=== PATIENT | female | born 1945 | race Caucasian/White ===

== ENCOUNTER 2021-01-18 17:22 | Emergency (ER) | payer MEDICARE, SELFPAY ==
--- NOTE | ~2021-01-18 | CT_ITS ---
EXAMINATION: CT ANGIOGRAM OF THE CHEST WITH AND WITHOUT CONTRAST (CT PULMONARY ANGIOGRAM FOR PE) CLINICAL INFORMATION: Reason for Exam SOB, chest pain, COVID+ COMPARISON: None TECHNIQUE: Prior to contrast administration, noncontrast localization images were obtained. Subsequently, multidetector volumetric imaging was performed from the thoracic inlet to below the diaphragms following the administration of 80 mL Omnipaque 350 intravenous contrast. No contrast reaction reported Sagittal, coronal, and MIP oblique sagittal reformatted images were obtained on the CT workstation, uploaded to PACS, and reviewed. This CT examination was performed using dose optimization techniques as appropriate, variously including the following: *Automated exposure control *Adjustment of mA and/or kV according to patient size (this includes techniques or standardized protocols for targeted exams where dose is matched to indication/reason for exam; i.e. extremities or head) *Use of iterative reconstruction technique Total exam dose-length product 241 mGy-cm FINDINGS: QUALITY OF STUDY/CONTRAST BOLUS: Satisfactory. PULMONARY ARTERIES: No central or segmental pulmonary emboli. THORACIC AORTA: No aneurysm or dissection. LUNG: Diffuse predominantly peripheral patchy groundglass opacities and areas of mild consolidation throughout all lobes consistent with an atypical multifocal pneumonia such as Covid 19. PLEURA: No pleural effusion or pneumothorax. MEDIASTINUM: Normal heart size. No pericardial effusion. No hilar or mediastinal lymphadenopathy. No evidence of septal bowing or right heart strain. CHEST WALL/AXILLA: No axillary or internal mammary lymphadenopathy. OSSEOUS STRUCTURES: No acute or suspicious osseous abnormality. UPPER ABDOMEN: Unremarkable. No reflux of contrast into the hepatic veins to suggest elevated right heart pressures. CT/CT angio chest PE protocol IMPRESSION: No central or segmental pulmonary embolus. Diffuse patchy parenchymal and groundglass opacities compatible with atypical multifocal pneumonia. VTE: negative
--- NOTE | ~2021-01-18 | XR_ITS ---
EXAMINATION: XR CHEST CLINICAL INFORMATION: Fatigue COMPARISON: None TECHNIQUE: Frontal view of the chest was obtained. FINDINGS: Ill-defined patchy parenchymal opacities in the right lower lobe peripherally and possible left lung base. This suggests atypical, multifocal pneumonia. No definite effusion or edema. Normal cardiomediastinal silhouette. XR/XR chest 1V IMPRESSION: Possible atypical multifocal pneumonia. Recommend short-term follow-up.
[2021-01-18 17:40] VITALS: BP 120/47; PULSE 93; PULSE 94; RESP 16; TEMP 37.6; O2SAT 94; BMI 25.6
--- NOTE | 2021-01-18 17:55 | ED_ITS ---
HPI - General Adult General Chief complaint: General Medical Stated complaint: covid +, nausea Time Seen by Provider: 01/18/21 17:46 Source: patient and EMS Mode of arrival: EMS Limitations: no limitations History of Present Illness HPI narrative: 75-year-old female with history of hyperlipidemia, arthritis, anxiety with reports of nausea, fatigue, fever, chills in the setting of recently being diagnosed with COVID-19 one week ago. MD complaint: COVID symptoms Onset (ago): week(s) (1) Location: chest and abdomen Radiation: non-radiation Severity: moderate Quality: aching Pain Consistency: intermittent Relieving factors: none Exacerbating factors: eating Associated symptoms: cough, fever/chills, headaches, loss of appetite, malaise, nausea/vomiting, shortness of breath and weakness Treatments prior to arrival: none Related Data Home Medications Medication Instructions Recorded Confirmed alendronate 70 mg tablet 1 tab PO QWEEK 01/18/21 01/18/21 ezetimibe 10 mg tablet 1 tab PO DAILY 01/18/21 01/18/21 lansoprazole 30 mg capsule,delayed 1 cap PO DAILY 01/18/21 01/18/21 release lorazepam 1 mg tablet 1 tab PO BID 01/18/21 01/18/21 losartan 50 mg tablet 1 tab PO DAILY 01/18/21 01/18/21 Previous Rx's Medication Instructions Recorded azithromycin 250 mg tablet See Rx Instructions .ROUTE 01/18/21 (Zithromax Z-Sincere) .COMPLEX #6 tab prednisone 20 mg tablet 40 mg PO DAILY #10 tab 01/18/21 Allergies Allergy/AdvReac Type Severity Reaction Status Date / Time Horse/Equine Containing Allergy Severe REDNESS Verified 01/18/21 19:54 Products AND [HORSE/EQUINE CONTAINING SWELLING PRODUCTS] aspirin [ASPIRIN] Allergy Unknown RASH Verified 01/18/21 19:54 ibuprofen [From MOTRIN] Allergy Unknown RASH Verified 01/18/21 19:54 latex [LATEX] Allergy Unknown RASH Verified 01/18/21 19:54 latex Allergy Unknown Unknown Uncoded 01/18/21 19:54 Motrin Allergy Unknown Unknown Uncoded 01/18/21 19:54 statins Allergy Unknown Unknown Uncoded 01/18/21 19:54 Review of Systems Review of Systems: Constitutional: + Fever, + Chills ENT/Mouth: No sore throat, No Rhinorrhea, No Swallowing Difficulty Eyes: No Eye Pain, No Swelling, No Redness Cardiovascular: No Chest Pain, + SOB, No Orthopnea, No Edema Respiratory:+ Cough, No Sputum, No Wheezing, + dyspnea Gastrointestinal: No Nausea, No Vomiting, No Diarrhea, No abdominal Pain Genitourinary: No Dysuria, No Urinary Frequency, No Hematuria Musculoskeletal: + joint pain, + Myalgias Skin: No Skin Lesions, No rash Neuro: + Weakness, No Numbness, No Dizziness, No Headache Psych: + Anxiety/Panic, No Depression Heme/Lymph: No Bruising, No Lymphadenopathy Endocrine: No Polyuria, No Polydipsia [facility] Social History Social History Alcohol intake: never Patient Tobacco Use Status: Never used Tobacco Use of substances other than those prescribed or required for medical reasons: No Advance Directives: No Advance Directives Information Provided: No Physical Exam Vital Signs: Vital Signs: Last Vital Signs Temp 99.6 F 01/18/21 19:49 Pulse 94 01/18/21 19:49 Resp 16 01/18/21 19:49 BP 120/47 L 01/18/21 19:49 Pulse Ox 94 01/18/21 19:49 Body Mass Index 25.6 Appearance: Alert. Oriented X3. No acute distress. Eyes: Pupils equal, round and reactive to light. ENT: Pharynx normal. Neck: Normal inspection. Neck supple. CVS: Normal heart rate and rhythm. Pulses normal. Respiratory: No respiratory distress. Breath sounds slightly coarse throughtout. speaking in complete sentences. Abdomen: Soft with mild epigastric tenderness. No rebound or guarding. +BS x4 Skin: Skin warm and dry. Normal skin color. Normal skin turgor. No rashes. Extremities: No lower extremity edema. No calf tenderness. Neuro: Oriented X 3. No motor deficit. No sensory deficit. Course Course Course Narrative: 75-year-old female presenting from home with diagnosis of COVID 1 week ago having ongoing lethargy, weakness, chills, nausea and mild shortness of breath. She has not been able to tolerate much p.o. in the last few days. He is not vomiting or having diarrhea she has has no appetite. She has mild shortness of breath with exertion but none at rest. Mild dry cough. She is on vaccinated for COVID because she was afraid of the shot. She arrives with low-grade fever 99.6 oxygen saturation 94% on room air, in no respiratory distress. She is hemodynamically stable Will get chest x-ray, labs, and m edicate with IV fluids Zofran. She appears clinically dry. Reevaluation(s) Reevaluation #1: Chest x-ray showing possible multifocal. Will get CTA to rule out PE and for further evaluation of the lung parenchyma. She remains with normal oxygen saturations. Will get respiratory therapist to get a ambulatory pulse oximetry on her. Her labs are showing hyponatremia with a sodium of 128. This is likely hypovolemic in the setting of poor p.o. intake. Will repeat after gentle hydration. Reevaluation #2: CT is negative for PE, showing multifocal pneumonia consistent with COVID-19. Her oxygen saturations were 96% with ambulation in the room with respiratory therapy. She is in no distress. On repeat sodium her sodium did trend down slightly to 126. She remains asymptomatic. Mentating normally has some mild nausea but no vomiting. She denies a history of hyponatremia. She is not on any psychiatric medications. Case was discussed with Dr. Valle. At this time there is no indication for admission. Her respiratory status is stable. She can follow-up with her primary care doctor on Wednesday to arrange for repeat sodium levels done this week. Patient was encouraged to get up home pulse oximeter to keep an eye on her SpO2 at home. Given warning signs for se corie hyponatremia that should prompt urgent re-evaluation the emergency room. She expressed understanding and is stable for discharge home. to pick her up. Medical Decision Making Lab Data Result diagrams: 01/18/21 18:34 01/18/21 21:28 Labs: Lab Results 01/18/21 01/18/21 01/18/21 Range/Units 18:34 18:34 18:34 WBC 3.6 L (4.8-10.8) X10*3/uL RBC 4.06 L (4.20-5.50) X10*6/uL Hgb 12.2 (12.0-16.0) g/dl Hct 35.4 L (37.0-47.0) % MCV 87.2 (80.0-98.0) fL MCH 30.0 (27.0-33.0) pg MCHC 34.5 (31.0-35.0) g/dl RDW 13.8 (11.0-16.0) % Plt Count 196 (160-400) X10*3/uL MPV 10.3 (9.4-12.3) fL Immature Gran % (Auto) 0.3 (0.0-0.4) % Neut % (Auto) 74.8 H (45-73) % Lymph % (Auto) 17.9 L (20-40) % [place] % (Auto) 7.0 (2-11) % Eos % (Auto) 0.0 (0-4) % Baso % (Auto) 0.0 (0-2) % Lymph # (Auto) 0.6 L (1.2-4.9) X10*3/uL [place] # (Auto) 0.3 (0.1-1.2) X10*3/uL Eos # (Auto) 0.0 (0.0-0.4) X10*3/uL Baso # (Auto) 0.0 (0.0-0.2) X10*3/uL Abs Immat Gran (auto) 0.01 (0.00-0.03) X10*3/uL Absolute Neuts (auto) 2.7 (2.0-8.3) x10*3/uL Absolute Nucleated RBC 0.000 (0.0-0.012) X10*3/uL Nucleated RBC % (auto) 0.0 (0.0-0.2) /100WBC D-Dimer NG/ML Sodium 128 L (135-145) mmol/L Potassium 4.5 (3.3-5.1) mmol/L Chloride 96 (96-108) mmol/L Carbon Dioxide 24 (22-29) mmol/L Anion Gap 13 (12-20) BUN 14 (9-16) mg/dL Creatinine 0.83 (0.5-1.4) mg/dL Estim Creat Clear Calc 45.2 Estimated GFR > 60 Random Glucose 116 H (60-115) mg/dL Osmolality 263 L (281-305) mosm/kg Calcium 7.5 L (8.4-10.2) mg/dL Magnesium 2.1 (1.6-2.6) mg/dL Total Bilirubin 0.4 (0.0-1.0) mg/dL Direct Bilirubin 0.2 (0.0-0.5) mg/dL AST 30 (5-31) U/L ALT 15 (0-31) U/L Alkaline Phosphatase 58 (39-117) U/L C-Reactive Protein 8.09 H (< or = 0.50) mg/dL Total Protein 5.9 L (6.5-8.0) g/dL Albumin 4.0 (3.5-5.0) g/dL 01/18/21 01/18/21 Range/Units 21:28 21:28 WBC (4.8-10.8) X10*3/uL RBC (4.20-5.50) X10*6/uL Hgb (12.0-16.0) g/dl Hct (37.0-47.0) % MCV (80.0-98.0) fL MCH (27.0-33.0) pg MCHC (31.0-35.0) g/dl RDW (11.0-16.0) % Plt Count (160-400) X10*3/uL MPV (9.4-12.3) fL Immature Gran % (Auto) (0.0-0.4) % Neut % (Auto) (45-73) % Lymph % (Auto) (20-40) % [place] % (Auto) (2-11) % Eos % (Auto) (0-4) % Baso % (Auto) (0-2) % Lymph # (Auto) (1.2-4.9) X10*3/uL [place] # (Auto) (0.1-1.2) X10*3/uL Eos # (Auto) (0.0-0.4) X10*3/uL Baso # (Auto) (0.0-0.2) X10*3/uL Abs Immat Gran (auto) (0.00-0.03) X10*3/uL Absolute Neuts (auto) (2.0-8.3) x10*3/uL Absolute Nucleated RBC (0.0-0.012) X10*3/uL Nucleated RBC % (auto) (0.0-0.2) /100WBC D-Dimer 209 NG/ML Sodium 126 L (135-145) mmol/L Potassium (3.3-5.1) mmol/L Chloride (96-108) mmol/L Carbon Dioxide (22-29) mmol/L Anion Gap (12-20) BUN (9-16) mg/dL Creatinine (0.5-1.4) mg/dL Estim Creat Clear Calc Estimated GFR Random Glucose (60-115) mg/dL Osmolality (281-305) mosm/kg Calcium (8.4-10.2) mg/dL Magnesium (1.6-2.6) mg/dL Total Bilirubin (0.0-1.0) mg/dL Direct Bilirubin (0.0-0.5) mg/dL AST (5-31) U/L ALT (0-31) U/L Alkaline Phosphatase (39-117) U/L C-Reactive Protein (< or = 0.50) mg/dL Total Protein (6.5-8.0) g/dL Albumin (3.5-5.0) g/dL Critical Care Time Critical Care Time Critical Care Time: No Discharge Plan Discharge Clinical Impression: COVID-19, Hyponatremia Patient Disposition: Home, Self-Care Instructions: Covid-19 Viral Syndrome and Novel Coronavirus (ED) Hey/Ath, Hyponatremia (ED) Additional Instructions: Your oxygen levels were normal while in the Emergency Department. Your CT scan shows evidence of COVID pneumonia. Take the prescribed antibiotic and steroid medication help the inflammation in your lungs. Recommend getting an [id number] pulse oximeter for home. If her oxygen level drops to 90% or below come back to the ER for further evaluation. Your also found to have a low sodium level of 126. This is most likely due to your poor appetite. Do your best to take in adequate meals and liquids. Follow-up with your primary care doctor on Wednesday for repeat blood draw this week. Rest. Drink plenty of fluids. Take over the counter cold/flu medications as needed for your symptoms. Take Tylenol and/or Motrin as needed for fevers and body aches. If you shortness of breath worsens , if you develop difficulty breathing or any other concerning symptom come back to the ER for further evaluation. Prescriptions: New azithromycin [Zithromax Z-Sincere] 250 mg tablet See Rx Instructions .ROUTE .COMPLEX Qty: 6 RF: 0 prednisone 20 mg tablet 40 mg PO DAILY Qty: 10 RF: 0 No Action losartan 50 mg tablet 1 tab PO DAILY RF: 0 alendronate 70 mg tablet 1 tab PO QWEEK RF: 0 lansoprazole 30 mg capsule,delayed release(DR/EC) 1 cap PO DAILY RF: 0 lorazepam 1 mg tablet 1 tab PO BID RF: 0 ezetimibe 10 mg tablet 1 tab PO DAILY RF: 0 Referrals: Davidson Lopez MD [Primary Care Provider] - 2 days (COVID pneumonia and hyponatremia) Interventions: ED Discharge Assessment Last Done: 01/18/21 22:46 Discharge Date/Time: 01/18/21 22:47
[2021-01-18] MEDS: 0.9 % Sodium Chloride 1,000 ML 999 ML IVCONT (18:34)
[2021-01-18] MEDS: Acetaminophen 325 MG TABLET 975 MG PO (18:34)
[2021-01-18] MEDS: ondansetron HCL 4 MG/2 ML VIAL IVPUSH (18:35)
[2021-01-18 18:39] LABS: MANUAL DIFF FLAG NO
[2021-01-18 18:40] LABS: Hematocrit 35.4 % (37.0-47.0); Hemoglobin 12.2 g/dl (12.0-16.0); Imm Gran Abs Auto 0.01 X10*3/uL (0.00-0.03); Imm Gran Pct Auto 0.3 % (0.0-0.4); Lymphocytes Absolute Auto 0.6 X10*3/uL (1.2-4.9); Lymphocytes Percent Auto 17.9 % (20-40); Mean Corpuscular HGB Conc 34.5 g/dl (31.0-35.0); Mean Corpuscular Volume 87.2 fL (80.0-98.0); Mean Platelet Volume 10.3 fL (9.4-12.3); Monocytes Absolute Auto 0.3 X10*3/uL (0.1-1.2); Neutrophils Absolute Auto 2.7 x10*3/uL (2.0-8.3); Neutrophils Percent Auto 74.8 % (45-73); Platelet Count 196 X10*3/uL (160-400); Red Blood Count 4.06 X10*6/uL (4.20-5.50); Red Cell Distribution Width 13.8 % (11.0-16.0); White Blood Count 3.6 X10*3/uL (4.8-10.8)
[2021-01-18 19:00] LABS: Alanine Aminotransferase 15 U/L (0-31); Alkaline Phosphatase 58 U/L (39-117); Anion Gap 13 (12-20); Aspartate Amino Transferase 30 U/L (5-31); Bilirubin Direct 0.2 mg/dL (0.0-0.5); Bilirubin Total 0.4 mg/dL (0.0-1.0); Blood Urea Nitrogen 14 mg/dL (9-16); C Reactive Protein 8.09 mg/dL (< or = 0.50); Calcium 7.5 mg/dL (8.4-10.2); Carbon Dioxide 24 mmol/L (22-29); Chloride 96 mmol/L (96-108); Creatinine Clr Calc Pharmacy 45.2; Estimated Glomerular Filt Rate > 60; Glucose Random 116 mg/dL (60-115); Magnesium 2.1 mg/dL (1.6-2.6); Potassium 4.5 mmol/L (3.3-5.1); Sodium 128 mmol/L (135-145); Total Protein 5.9 g/dL (6.5-8.0)
[2021-01-18 19:36] LABS: Osmolality, Serum 263 mosm/kg (281-305)
[2021-01-18 19:49] VITALS: BP 120/47; PULSE 94; RESP 16; TEMP 37.6; O2SAT 94
[2021-01-18] MEDS: iohexoL 350 MG/ML 100 ML INFUS..BTL IV (20:04)
[2021-01-18 21:44] LABS: D Dimer 209 NG/ML
[2021-01-18 21:45] LABS: Sodium 126 mmol/L (135-145)
== END 2021-01-18 22:47 | disposition home or self-care (01) ==
PROVIDERS: Physician Assistant; Emergency Provider Internal Medicine; PCP Internal Medicine
DX: U07.1 COVID-19 (principal); E87.1 Hypo-osmolality and hyponatremia; R51.9 Headache, unspecified; R05.9 Cough, unspecified; Z79.899 Other long term (current) drug therapy
CPT/HCPCS: 36415; 71045; 71275; 80048; 80076; 83735; 83930; 84295; 85025; 85379; 86140; 96361; 96374; 99285; J2405; Q9967

== ENCOUNTER 2021-01-21 09:31 | Inpatient (IN) | payer MEDICARE, SELFPAY ==
[2021-01-21] VITALS (7 sets, daily range): BP systolic 115–163; BP diastolic 47–94; PULSE 76–106; RESP 18–40; TEMP 36.6–36.9; O2SAT 88–98; BMI 25.2; BMI 26.9
--- NOTE | ~2021-01-21 | CT_ITS ---
EXAMINATION: CT ANGIOGRAM OF THE CHEST WITH AND WITHOUT CONTRAST (CT PULMONARY ANGIOGRAM FOR PE) CLINICAL INFORMATION: Reason for Exam Dyspnea, COVID-19, elevated D-dimer COMPARISON: None TECHNIQUE: Prior to contrast administration, noncontrast localization images were obtained. Subsequently, multidetector volumetric imaging was performed from the thoracic inlet to below the diaphragms following the administration of 80 mL Omnipaque 350 intravenous contrast. No contrast reaction reported Sagittal, coronal, and MIP oblique sagittal reformatted images were obtained on the CT workstation, uploaded to PACS, and reviewed. This CT examination was performed using dose optimization techniques as appropriate, variously including the following: *Automated exposure control *Adjustment of mA and/or kV according to patient size (this includes techniques or standardized protocols for targeted exams where dose is matched to indication/reason for exam; i.e. extremities or head) *Use of iterative reconstruction technique Total exam dose-length product 240 mGy-cm FINDINGS: QUALITY OF STUDY/CONTRAST BOLUS: Satisfactory. PULMONARY ARTERIES: No central or segmental pulmonary emboli. THORACIC AORTA: The LUNG: There is diffuse groundglass opacity seen throughout both lungs most prominent in the both lower lobes and subpleural-based upper lobes consistent panlobular infiltrate. PLEURA: No pleural effusion or pneumothorax. MEDIASTINUM: The heart size is normal. There is a small hiatal hernia. No pericardial effusion seen. There are reactive lymph nodes in the right peritracheal and subcarinal space. Largest lymph node in subcarinal space measures 1.7 cm. No evidence of septal bowing or right heart strain. CHEST WALL/AXILLA: No axillary or internal mammary lymphadenopathy. OSSEOUS STRUCTURES: No acute or suspicious osseous abnormality. UPPER ABDOMEN: Visualized liver, spleen and pancreas unremarkable. No reflux of contrast into the hepatic veins to suggest elevated right heart pressures. CT/CT angio chest PE protocol IMPRESSION: Diffuse groundglass opacity most predominantly in the lower lobes and subpleural based upper lobe suggestive of panlobular infiltrate. The findings may represent COVID disease. Inflammatory lymph nodes in the mediastinum. Small hiatal hernia. VTE: Negative.
--- NOTE | ~2021-01-21 | XR_ITS ---
EXAMINATION: XR CHEST CLINICAL INFORMATION: Cough, COVID positive. COMPARISON: Chest radiographs 01/18/2021, 10/28/2011 TECHNIQUE: 2 views of the chest were obtained. FINDINGS: There are increased airspace opacities and patchy infiltrates in the mid and lower zones, slightly increased since prior exam 01/18/2021. No effusion. The vascularity is normal. The heart is within normal size. There is cardiac monitoring device again overlying the left chest. The hilar and mediastinal contours are unremarkable. XR/XR chest 2V IMPRESSION: Increased bilateral airspace opacities and patchy infiltrates mid and lower zones since recent exam 01/18/2021.
--- NOTE | ~2021-01-21 | CT_ITS ---
EXAMINATION: CT ANGIOGRAM OF THE CHEST WITH CONTRAST (CT PULMONARY ANGIOGRAM FOR PE) CLINICAL INFORMATION: Hypoxia and chest pain. COMPARISON: Chest CT angiography from 01/21/2021. TECHNIQUE: Prior to contrast administration, noncontrast localization images were obtained. Subsequently, multidetector volumetric imaging was performed from the thoracic inlet to below the diaphragms following the administration of 65 mL Omnipaque 350 intravenous contrast. No contrast reaction reported. Sagittal, coronal, and MIP oblique sagittal reformatted images were obtained on the CT workstation, uploaded to PACS, and reviewed. This CT examination was performed using dose optimization techniques as appropriate, variously including the following: *Automated exposure control *Adjustment of mA and/or kV according to patient size (this includes techniques or standardized protocols for targeted exams where dose is matched to indication/reason for exam; i.e. extremities or head) *Use of iterative reconstruction technique DLP: Total exam dose-length product 203 mGy-cm FINDINGS: LUNGS AND PLEURA: Trachea and central airways are widely patent and normal in caliber. Overall, the multilobar pneumonia has mildly improved compared 01/21/2021. Although multiple scattered groundglass opacities are present in both lungs, there are regions where the disease has diminished, but there are regions of new patchy groundglass opacity in the lungs, as well. No pneumothorax or pleural effusion. QUALITY OF STUDY/CONTRAST BOLUS: Satisfactory. CARDIOVASCULAR: Pulmonary arteries are normal in caliber. The evaluation of the vessels in the lower lung zones is partially limited by respiratory motion. No embolic filling defects in the main, lobar or segmental vessels. The heart size is normal. No pericardial effusion. There is atherosclerotic calcification of the thoracic aorta without aneurysm or dissection. MEDIASTINUM/LOWER NECK: [id number] sliding-type hiatal hernia. No pneumomediastinum. No mediastinal mass. The thyroid gland is grossly unremarkable, partially included in the [id number]. LYMPHATICS: No pathologic sized axillary, hilar or mediastinal lymph nodes. UPPER ABDOMEN: No acute findings. No contrast reflux into the inferior vena cava. The liver is diffusely hypodense compared to the spleen on these arterial phase images. This suggests possibility of steatosis. OSSEOUS STRUCTURES: No acute or suspicious osseous abnormality. CT/CT angio chest PE protocol IMPRESSION: * No evidence of pulmonary embolism. * There is persistent multilobar pneumonia. Overall, the pulmonary disease is mildly improved compared to 01/21/2021. * [id number] sized hiatal hernia is noted.
--- NOTE | 2021-01-21 12:07 | ECG_ITS ---
Test Reason : SOB Blood Pressure : / mmHG Vent. Rate : 106 BPM Atrial Rate : 106 BPM P-R Int : 142 ms QRS Dur : 074 ms QT Int : 312 ms P-R-T Axes : 027 -12 008 degrees QTc Int : 414 ms Sinus tachycardia Minimal voltage criteria for LVH, may be normal variant ( R in aVL ) Nonspecific ST abnormality Abnormal ECG When compared with ECG of 28-OCT-2011 22:04, No significant change was found Referred By: Immanuel Benavides Electronically Signed By:JOVANA PHAM MD
--- NOTE | 2021-01-21 12:09 | ED.SOB ---
HPI - SOB/Dyspnea General Chief Complaint: Dyspnea Stated Complaint: COVID+, pneumonia Time Seen by Provider: 01/21/21 10:11 Source: patient and old records reviewed History of Present Illness HPI Narrative: Patient with a recent diagnosis of COVID-19 presenting with increasing dyspnea. She states symptoms started 8 days ago. She was seen here 3 days ago and treated for dyspnea and mild hyponatremia. Workup at that time included CT scan which showed no evidence of pulmonary embolism. Since that time, however, she states her breathing has gotten steadily worse. Positive cough without phlegm Nighttime chills and sweats States dyspnea is much worse with minimal exertion Risk factors of hypertension only. No history of smoking or lung disease. No history of diabetes No history of obesity She has not been vaccinated against COVID-19 Related Data Home Medications Medication Instructions Recorded Confirmed ezetimibe 10 mg tablet 10 mg PO DAILY 01/18/21 01/21/21 lansoprazole 30 mg capsule,delayed 30 mg PO DAILY 01/18/21 01/21/21 release lorazepam 1 mg tablet 1 mg PO BID PRN 01/18/21 01/21/21 losartan 50 mg tablet 50 mg PO DAILY 01/18/21 01/21/21 benzonatate 100 mg capsule 100 mg PO TID PRN 01/21/21 01/21/21 metoprolol succinate 25 mg 25 mg PO DAILY 01/21/21 01/21/21 tablet,extended release 24 hr Previous Rx's Medication Instructions Recorded azithromycin 250 mg tablet See Rx Instructions .ROUTE 01/18/21 (Zithromax Z-Sincere) .COMPLEX #6 tab prednisone 20 mg tablet 40 mg PO DAILY #10 tab 01/18/21 Allergies Allergy/AdvReac Type Severity Reaction Status Date / Time Horse/Equine Containing Allergy Severe REDNESS Verified 01/18/21 19:54 Products AND [HORSE/EQUINE CONTAINING SWELLING PRODUCTS] aspirin [ASPIRIN] Allergy Unknown RASH Verified 01/18/21 19:54 ibuprofen [From MOTRIN] Allergy Unknown RASH Verified 01/18/21 19:54 latex [LATEX] Allergy Unknown RASH Verified 01/18/21 19:54 latex Allergy Unknown Unknown Uncoded 01/18/21 19:54 Motrin Allergy Unknown Unknown Uncoded 01/18/21 19:54 statins Allergy Unknown Unknown Uncoded 01/18/21 19:54 Review of Systems Constitutional: Constitutional: Reports fatigue, Reports fever(s), Reports poor appetite and Reports weakness Comments: Chills Cardiovascular: Comments: Chest pain with deep breath Respiratory: Comments: Dyspnea and cough without sputum Gastrointestinal: Comments: No abdominal pain or nausea or vomiting Musculoskeletal: Comments: No extremity swelling Integumentary/Breasts: Comments: No rash Neurologic: Reports weakness Comments: No focal weakness Psychiatric: Comments: Anxiety Endocrine: Endocrine: Reports fatigue PMFSH Social History Social History Alcohol intake: never Patient Tobacco Use Status: Never used Tobacco Advance Directives: No Advance Directives Information Provided: No Physical Exam Vital Signs: Vital Signs: Last Vital Signs Temp 98.5 F 01/21/21 10:50 Pulse 98 01/21/21 14:14 Resp 40 H 01/21/21 14:14 BP 125/75 01/21/21 12:02 Pulse Ox 98 01/21/21 14:14 Oxygen Flow Rate 4 01/21/21 10:50 Body Mass Index 25.2 Const: Other: Awake and alert. Nontoxic but anxious Chest: Other: Lateral chest tender to palpation reproducing symptoms Resp: Other: Diminished bilaterally without obvious wheezing. Very tachypneic with shallow respirations. Oxygen saturation 89% on room air at rest Cardio: Other: Regular rate and rhythm without murmurs rubs or gallops GI: Other: Soft nontender nondistended Skin: Other: No rash Extrem: Other: No calf tenderness Course Course Course Narrative: COVID-19 pneumonia Hypoxia PE less likely given recent negative CT scan Bacterial pneumonia less likely given current antibiotics Workup in the emergency department shows chest x-ray with bilateral interstitial infiltrates consistent with COVID-19 pneumonia. Final impression, hypoxia secondary to COVID-19 pneumonia, bilateral 1:18 p.m.. Workup shows elevated troponin at 22.9. D-dimer is also elevated now over 500 compared to recent D-dimer in the [address] scan to look for newly developed thromboembolic disease. Patient is allergic to aspirin Repeat troponin 2:49 p.m.. Repeat troponin is 27. CT scan shows diffuse worsening ground-glass infiltrates. No evidence of thromboembolic disease however. Will hospitalized for further treatment Final impression hypoxia secondary to COVID-19 pneumonia. Cardiac ischemia, secondary to strain MDM - SOB/Dyspnea Lab Data Result diagrams: 01/21/21 12:42 01/21/21 12:42 Labs: Lab Results 01/21/21 01/21/2101/21/21 Range/Units 12:42 12:42 12:42 WBC 8.6 (4.8-10.8) X10*3/uL RBC 4.21 (4.20-5.50) X10*6/uL Hgb 12.6 (12.0-16.0) g/dl Hct 36.7 L (37.0-47.0) % MCV 87.2 (80.0-98.0) fL MCH 29.9 (27.0-33.0) pg MCHC 34.3 (31.0-35.0) g/dl RDW 14.0 (11.0-16.0) % Plt Count 333 D (160-400) X10*3/uL MPV 10.1 (9.4-12.3) fL Immature Gran % (Auto) 0.9 H (0.0-0.4) % Neut % (Auto) 92.0 H (45-73) % Lymph % (Auto) 5.0 L (20-40) % [place] % (Auto) 2.1 (2-11) % Eos % (Auto) 0.0 (0-4) % Baso % (Auto) 0.0 (0-2) % Lymph # (Auto) 0.4 L (1.2-4.9) X10*3/uL [place] # (Auto) 0.2 (0.1-1.2) X10*3/uL Eos # (Auto) 0.0 (0.0-0.4) X10*3/uL Baso # (Auto) 0.0 (0.0-0.2) X10*3/uL Abs Immat Gran (auto) 0.08 H (0.00-0.03) X10*3/uL Absolute Neuts (auto) 7.9 (2.0-8.3) x10*3/uL Absolute Nucleated RBC 0.000 (0.0-0.012) X10*3/uL Nucleated RBC % (auto) 0.0 (0.0-0.2) /100WBC Smear Tech's Comments VERIFIED D-Dimer NG/ML Sodium 134 L (135-145) mmol/L Potassium 4.3 (3.3-5.1) mmol/L Chloride 100 (96-108) mmol/L Carbon Dioxide 21 L (22-29) mmol/L Anion Gap 17 (12-20) BUN 15 (9-16) mg/dL Creatinine 0.82 (0.5-1.4) mg/dL Estim Creat Clear Calc 45.5 Estimated GFR > 60 Random Glucose 145 H (60-115) mg/dL Lactic Acid (0.5-2.0) mmol/L Calcium 7.9 L (8.4-10.2) mg/dL Total Bilirubin 0.5 (0.0-1.0) mg/dL AST 46 H D (5-31) U/L ALT 19 (0-31) U/L Alkaline Phosphatase 66 (39-117) U/L Troponin I High Sens (<3.5-17.0) ng/L Total Protein 6.7 (6.5-8.0) g/dL Albumin 4.1 (3.5-5.0) g/dL COVID-19 (BESSIE) Positive A (Negative) COVID-19 Clin Com See Note 01/21/21 01/21/21 01/21/21 Range/Units 12:42 12:42 12:42 WBC (4.8-10.8) X10*3/uL RBC (4.20-5.50) X10*6/uL Hgb (12.0-16.0) g/dl Hct (37.0-47.0) % MCV (80.0-98.0) fL MCH (27.0-33.0) pg MCHC (31.0-35.0) g/dl RDW (11.0-16.0) % Plt Count (160-400) X10*3/uL MPV (9.4-12.3) fL Immature Gran % (Auto) (0.0-0.4) % Neut % (Auto) (45-73) % Lymph % (Auto) (20-40) % [place] % (Auto) (2-11) % Eos % (Auto) (0-4) % Baso % (Auto) (0-2) % Lymph # (Auto) (1.2-4.9) X10*3/uL [place] # (Auto) (0.1-1.2) X10*3/uL Eos # (Auto) (0.0-0.4) X10*3/uL Baso # (Auto) (0.0-0.2) X10*3/uL Abs Immat Gran (auto) (0.00-0.03) X10*3/uL Absolute Neuts (auto) (2.0-8.3) x10*3/uL Absolute Nucleated RBC (0.0-0.012) X10*3/uL Nucleated RBC % (auto) (0.0-0.2) /100WBC Smear Tech's Comments D-Dimer 573 NG/ML Sodium (135-145) mmol/L Potassium (3.3-5.1) mmol/L Chloride (96-108) mmol/L Carbon Dioxide (22-29) mmol/L Anion Gap (12-20) BUN (9-16) mg/dL Creatinine (0.5-1.4) mg/dL Estim Creat Clear Calc Estimated GFR Random Glucose (60-115) mg/dL Lactic Acid 1.7 (0.5-2.0) mmol/L Calcium (8.4-10.2) mg/dL Total Bilirubin (0.0-1.0) mg/dL AST (5-31) U/L ALT (0-31) U/L Alkaline Phosphatase (39-117) U/L Troponin I High Sens 22.9 H* (<3.5-17.0) ng/L Total Protein (6.5-8.0) g/dL Albumin (3.5-5.0) g/dL COVID-19 (BESSIE) (Negative) COVID-19 Clin Com 01/21/21 Range/Units 14:17 WBC (4.8-10.8) X10*3/uL RBC (4.20-5.50) X10*6/uL Hgb (12.0-16.0) g/dl Hct (37.0-47.0) % MCV (80.0-98.0) fL MCH (27.0-33.0) pg MCHC (31.0-35.0) g/dl RDW (11.0-16.0) % Plt Count (160-400) X10*3/uL MPV (9.4-12.3) fL Immature Gran % (Auto) (0.0-0.4) % Neut % (Auto) (45-73) % Lymph % (Auto) (20-40) % [place] % (Auto) (2-11) % Eos % (Auto) (0-4) % Baso % (Auto) (0-2) % Lymph # (Auto) (1.2-4.9) X10*3/uL [place] # (Auto) (0.1-1.2) X10*3/uL Eos # (Auto) (0.0-0.4) X10*3/uL Baso # (Auto) (0.0-0.2) X10*3/uL Abs Immat Gran (auto) (0.00-0.03) X10*3/uL Absolute Neuts (auto) (2.0-8.3) x10*3/uL Absolute Nucleated RBC (0.0-0.012) X10*3/uL Nucleated RBC % (auto) (0.0-0.2) /100WBC Smear Tech's Comments D-Dimer NG/ML Sodium (135-145) mmol/L Potassium (3.3-5.1) mmol/L Chloride (96-108) mmol/L Carbon Dioxide (22-29) mmol/L Anion Gap (12-20) BUN (9-16) mg/dL Creatinine (0.5-1.4) mg/dL Estim Creat Clear Calc Estimated GFR Random Glucose (60-115) mg/dL Lactic Acid (0.5-2.0) mmol/L Calcium (8.4-10.2) mg/dL Total Bilirubin (0.0-1.0) mg/dL AST (5-31) U/L ALT (0-31) U/L Alkaline Phosphatase (39-117) U/L Troponin I High Sens 27.0 H* (<3.5-17.0) ng/L Total Protein (6.5-8.0) g/dL Albumin (3.5-5.0) g/dL COVID-19 (BESSIE) (Negative) COVID-19 Clin Com Critical Care Time Critical Care Time Critical Care Time: Yes Total Critical Care Time: 60 Attestation: Critical care time outside of separately billable procedures. Critical care secondary to hypoxia in the setting of severe COVID-19 infection with elevated troponins Discharge Plan Discharge Patient Disposition: Admitted As Inpatient
[2021-01-21] MEDS: 0.9 % Sodium Chloride 500 ML IV (12:48)
[2021-01-21] MEDS: ondansetron HCL 4 MG/2 ML VIAL IVPUSH (12:50)
[2021-01-21] MEDS: methylPREDNISolone Sod Succ 125 MG/2 ML VIAL IVPUSH (12:50)
[2021-01-21] MEDS: LORazepam 2 MG/ML VIAL 0.5 MG IVPUSH (12:50)
[2021-01-21 12:51] LABS: Hematocrit 36.7 % (37.0-47.0); Hemoglobin 12.6 g/dl (12.0-16.0); Imm Gran Abs Auto 0.08 X10*3/uL (0.00-0.03); Imm Gran Pct Auto 0.9 % (0.0-0.4); Lymphocytes Absolute Auto 0.4 X10*3/uL (1.2-4.9); MANUAL DIFF FLAG SCAN; Mean Corpuscular HGB Conc 34.3 g/dl (31.0-35.0); Mean Corpuscular Hemoglobin 29.9 pg (27.0-33.0); Mean Corpuscular Volume 87.2 fL (80.0-98.0); Mean Platelet Volume 10.1 fL (9.4-12.3); Monocytes Absolute Auto 0.2 X10*3/uL (0.1-1.2); Monocytes Percent Auto 2.1 % (2-11); Neutrophils Absolute Auto 7.9 x10*3/uL (2.0-8.3); Platelet Count 333 X10*3/uL (160-400); Red Blood Count 4.21 X10*6/uL (4.20-5.50); SCAN SMEAR FLAG 1; White Blood Count 8.6 X10*3/uL (4.8-10.8)
[2021-01-21 13:05] LABS: Alanine Aminotransferase 19 U/L (0-31); Albumin Level 4.1 g/dL (3.5-5.0); Alkaline Phosphatase 66 U/L (39-117); Anion Gap 17 (12-20); Aspartate Amino Transferase 46 U/L (5-31); Bilirubin Total 0.5 mg/dL (0.0-1.0); Blood Urea Nitrogen 15 mg/dL (9-16); Calcium 7.9 mg/dL (8.4-10.2); Carbon Dioxide 21 mmol/L (22-29); Chloride 100 mmol/L (96-108); Creatinine Clr Calc Pharmacy 45.5; Estimated Glomerular Filt Rate > 60; Glucose Random 145 mg/dL (60-115); Potassium 4.3 mmol/L (3.3-5.1); Sodium 134 mmol/L (135-145); Total Protein 6.7 g/dL (6.5-8.0)
[2021-01-21 13:14] LABS: D Dimer 573 NG/ML; SLIDE REVIEW VERIFIED; Troponin-I High Sensitivity 22.9 ng/L (<3.5-17.0)
[2021-01-21 13:24] LABS: COVID-19 Test Positive (Negative)
[2021-01-21 13:28] LABS: Lactic Acid 1.7 mmol/L (0.5-2.0)
[2021-01-21 15:39] LABS: Lactate Dehydrogenase 575 U/L (122-220)
--- NOTE | 2021-01-21 15:46 | P.HPHOSP_ITS ---
History of Present Illness Date of Service: 01/21/21 Attending physician on admission: Jak Jimenez Chief Complaint: Shortness of breath for 5 days duration. 75-year-old female she was in the hospital 3 days back because of fever chills and fatigue-that time patient saturation was fine, and was sent home with p.o. azithromycin and prednisone. As per the previous ED provider note patient had symptoms for 1 week but currently patient is saying she has symptom for 5-6 days since her had symptom for 1week duration. Currently she is short of breath, no cough She is not vaccinated. She said her had similar symptom 1 day before her. Denies any new complaint of chest pain or abdominal pain or fever or chills or nausea or vomiting or headache or dizziness. Denies any cough Denies any weakness or numbness. Past medical history:hyperlipidemia, arthritis, anxiety? Review of Systems Review of Systems: As above Yes all other systems are reviewed and are negative PMFSH Cognitive capacity: Hyperlipidemia, arthritis, anxiety. Pertinent family history: Her sister has history of diabetes. Social History Alcohol intake: never Patient Tobacco Use Status: Never used Tobacco Advance Directives: No Advance Directives Information Provided: No Meds Allergies Allergy/AdvReac Type Severity Reaction Status Date / Time Horse/Equine Containing Allergy Severe REDNESS Verified 01/18/21 19:54 Products AND [HORSE/EQUINE CONTAINING SWELLING PRODUCTS] aspirin [ASPIRIN] Allergy Unknown RASH Verified 01/18/21 19:54 ibuprofen [From MOTRIN] Allergy Unknown RASH Verified 01/18/21 19:54 latex [LATEX] Allergy Unknown RASH Verified 01/18/21 19:54 latex Allergy Unknown Unknown Uncoded 01/18/21 19:54 Motrin Allergy Unknown Unknown Uncoded 01/18/21 19:54 statins Allergy Unknown Unknown Uncoded 01/18/21 19:54 Active Medications: Current Medications Benzonatate (Benzonatate 100 Mg Capsule) 100 mg PO TID PRN PRN Reason: Cough Ezetimibe (Ezetimibe 10 Mg Tablet) 10 mg PO DAILY [facility] Enoxaparin Sodium (Enoxaparin Sodium 40 Mg/0.4 Ml Syringe) 40 mg SUBCUT Q24H [facility] Famotidine (Famotidine 20 Mg Tablet) 20 mg PO BID [facility] Lorazepam (Lorazepam 1 Mg Tablet) 1 mg PO BID PRN PRN Reason: anxiety/sleep Losartan Potassium (Losartan Potassium 50 Mg Tablet) 50 mg PO DAILY ELISAB[facility]; Protocol Methylprednisolone Sodium Succinate (Methylprednisolone Sod Succ 40 Mg/Ml Vial) 40 mg IVPUSH Q12H [facility] Metoprolol Succinate (Metoprolol Succinate Er 25 Mg Tab.Er.24h) 25 mg PO DAILY [facility]; Protocol Sodium Chloride (0.9 % Sodium Chloride Flush 3 Ml Syringe) 3 ml IVFLUSH QSHIFT [facility] Zinc Sulfate (Zinc Sulfate 220 Mg Capsule) 220 mg PO DAILY [facility] Home Medications Medication Instructions Recorded Confirmed Last Taken Type ezetimibe 10 mg tablet 10 mg PO DAILY 01/18/21 01/21/21 Unknown History lansoprazole 30 mg capsule,delayed 30 mg PO DAILY 01/18/21 01/21/21 Unknown History release lorazepam 1 mg tablet 1 mg PO BID PRN 01/18/21 01/21/21 Unknown History losartan 50 mg tablet 50 mg PO DAILY 01/18/21 01/21/21 Unknown History benzonatate 100 mg capsule 100 mg PO TID PRN 01/21/21 01/21/21 Unknown History metoprolol succinate 25 mg 25 mg PO DAILY 01/21/21 01/21/21 Unknown History tablet,extended release 24 hr Physical Exam Vital Signs and Narrative: Vital Signs: Last Vital Signs Temp 98.5 F 01/21/21 10:50 Pulse 98 01/21/21 14:14 Resp 40 H 01/21/21 14:14 BP 125/75 01/21/21 12:02 Pulse Ox 98 01/21/21 14:14 Oxygen Flow Rate 4 01/21/21 10:50 Body Mass Index 25.2 Physical exam: Appearance: Alert.? Oriented X3.? not in distress.? Eyes: Pupils equal, round and reactive to light.? Sclera nonicteric.? ENT: Pharynx normal.? Moist mucous membranes. cvs: [id number], [id number] , no murmur res:air entry diminshed , few rhochii , no rales abd: no rebound or guarding ,nt, bs present. ext pulses present , no cyanosis. neuro: axo3 , nonfocal. Results Labs CBC and Chem 7: 01/21/21 12:42 01/21/21 12:42 Labs: Laboratory Results - last 24 hr 01/21/21 01/21/21 01/21/21 12:42 12:42 12:42 MCV 87.2 MCH 29.9 MCHC 34.3 RDW 14.0 Plt Count 333 D MPV 10.1 Immature Gran % (Auto) 0.9 H Neut % (Auto) 92.0 H Lymph % (Auto) 5.0 L [place] % (Auto) 2.1 Eos % (Auto) 0.0 Baso % (Auto) 0.0 Lymph # (Auto) 0.4 L [place] # (Auto) 0.2 Eos # (Auto) 0.0 Baso # (Auto) 0.0 Abs Immat Gran (auto) 0.08 H Absolute Neuts (auto) 7.9 Absolute Nucleated RBC 0.000 Nucleated RBC % (auto) 0.0 Smear Tech's Comments VERIFIED D-Dimer Anion Gap 17 Estim Creat Clear Calc 45.5 Estimated GFR > 60 Random Glucose 145 H Lactic Acid Calcium 7.9 L Total Bilirubin 0.5 AST 46 H D ALT 19 Alkaline Phosphatase 66 Lactate Dehydrogenase 575 H Troponin I High Sens C-Reactive Protein 20.50 H Total Protein 6.7 Albumin 4.1 COVID-19 (BESSIE) Positive A COVID-19 Clin Com See Note 01/21/21 01/21/21 01/21/21 12:42 12:42 12:42 MCV MCH MCHC RDW Plt Count MPV Immature Gran % (Auto) Neut % (Auto) Lymph % (Auto) [place] % (Auto) Eos % (Auto) Baso % (Auto) Lymph # (Auto) [place] # (Auto) Eos # (Auto) Baso # (Auto) Abs Immat Gran (auto) Absolute Neuts (auto) Absolute Nucleated RBC Nucleated RBC % (auto) Smear Tech's Comments D-Dimer 573 Anion Gap Estim Creat Clear Calc Estimated GFR Random Glucose Lactic Acid 1.7 Calcium Total Bilirubin AST ALT Alkaline Phosphatase Lactate Dehydrogenase Troponin I High Sens 22.9 H* C-Reactive Protein Total Protein Albumin COVID-19 (BESSIE) COVID-19 Clin Com 01/21/21 14:17 MCV MCH MCHC RDW Plt Count MPV Immature Gran % (Auto) Neut % (Auto) Lymph % (Auto) [place] % (Auto) Eos % (Auto) Baso % (Auto) Lymph # (Auto) [place] # (Auto) Eos # (Auto) Baso # (Auto) Abs Immat Gran (auto) Absolute Neuts (auto) Absolute Nucleated RBC Nucleated RBC % (auto) Smear Tech's Comments D-Dimer Anion Gap Estim Creat Clear Calc Estimated GFR Random Glucose Lactic Acid Calcium Total Bilirubin AST ALT Alkaline Phosphatase Lactate Dehydrogenase Troponin I High Sens 27.0 H* C-Reactive Protein Total Protein Albumin COVID-19 (BESSIE) COVID-19 Clin Com Imaging Radiologist's Impressions: Impressions Chest X-Ray 01/21/21 10:17 IMPRESSION: Increased bilateral airspace opacities and patchy infiltrates mid and lower zones since recent exam 01/18/2021. Chest CTA 01/21/21 13:18 IMPRESSION: Diffuse groundglass opacity most predominantly in the lower lobes and subpleural based upper lobe suggestive of panlobular infiltrate. The findings may represent COVID disease. Inflammatory lymph nodes in the mediastinum. Small hiatal hernia. VTE: Negative. Assessment and Plan (1) Hypoxia: Status: Acute (2) COVID-19: Status: Acute (3) Acute hypoxemic respiratory failure: Status: Acute 1. Acute hypoxemic respiratory failure secondary to COVID pneumonia. Has leukopenia lymphopenia, COVID positive, blood culture pending Follow-up CRP, ferritin, LDH. She says that she has 4-5 days of symptoms only even though the last ED visit says 1 week -will consider ID evaluation for remdesivir use. Continue steroids, oxygen support 2. Hlp: continue statin 3. Anxiety: Continue home anxiety medication DVT prophylaxis: Lovenox Assessment and plan discussed with patient in detail including use of steroids oxygen support and may need remdesivir if qualify and core status-patient with above plan, patient is full code. Quality Stroke Does the patient have a stroke diagnosis?: No VTE Prior VTE?: No VTE Risk Level:: Medical - moderate - high VTE Device Contraindication: N/A - Device Ordered VTE Drug Contraindication: N/A - Med Ordered
[2021-01-21 15:53] LABS: Ferritin 1265 ng/mL (10-250)
[2021-01-21 15:56] LABS: Procalcitonin 0.22 ng/mL
--- NOTE | 2021-01-21 16:41 | PC.NURSE ---
pharmacy contacted for Zinc medication, awaiting arrival
--- NOTE | 2021-01-21 16:47 | PC.NURSE ---
pt asleep at this time, she is aware that she will be staying in the hospital. diet ordered, pt RR continue to be fast at 40, vital signs otherwise stable.
[2021-01-21] MEDS: Zinc Sulfate 220 MG CAPSULE PO (17:37)
[2021-01-21] MEDS: 0.9 % Sodium Chloride Flush 3 ML SYRINGE IVFLUSH ×2 (17:37→21:06)
[2021-01-21] MEDS: Enoxaparin Sodium 40 MG/0.4 ML SYRINGE SUBCUT (18:54)
[2021-01-21] MEDS: methylPREDNISolone Sod Succ 40 MG/ML VIAL IVPUSH (21:06)
[2021-01-21] MEDS: Famotidine 20 MG TABLET PO (21:06)
[2021-01-22] VITALS (9 sets, daily range): BP systolic 117–142; BP diastolic 59–72; PULSE 80–94; RESP 18–20; TEMP 36.3–36.8; O2SAT 82–98
[2021-01-22] MEDS: Benzonatate 100 MG CAPSULE PO ×2 (01:49→20:53)
[2021-01-22] MEDS: LORazepam 1 MG TABLET PO ×2 (02:32→20:53)
[2021-01-22 07:17] LABS: Alanine Aminotransferase 15 U/L (0-31); Albumin Level 3.3 g/dL (3.5-5.0); Alkaline Phosphatase 50 U/L (39-117); Anion Gap 15 (12-20); Aspartate Amino Transferase 27 U/L (5-31); Bilirubin Direct 0.2 mg/dL (0.0-0.5); Bilirubin Total 0.3 mg/dL (0.0-1.0); Blood Urea Nitrogen 19 mg/dL (9-16); Calcium 7.1 mg/dL (8.4-10.2); Carbon Dioxide 20 mmol/L (22-29); Chloride 103 mmol/L (96-108); Creatinine Clr Calc Pharmacy 51.9; Estimated Glomerular Filt Rate > 60; Glucose Random 178 mg/dL (60-115); Potassium 4.6 mmol/L (3.3-5.1); Sodium 133 mmol/L (135-145); Total Protein 5.3 g/dL (6.5-8.0)
[2021-01-22] MEDS: Losartan Potassium 50 MG TABLET PO (07:54)
[2021-01-22] MEDS: Zinc Sulfate 220 MG CAPSULE PO (07:54)
[2021-01-22] MEDS: Ezetimibe 10 MG TABLET PO (07:54)
[2021-01-22] MEDS: Famotidine 20 MG TABLET PO ×2 (07:54→20:53)
[2021-01-22] MEDS: Metoprolol Succinate ER 25 MG TAB.ER.24H PO (07:54)
--- NOTE | 2021-01-22 09:00 | MHC.CM.PN ---
Patient is covid (+) and not reachable by phone [phone] at this time; CM spoke with /HCP/Arcadio @ [phone] and addressed IMM with him (mailing original IMM certified letter to him and placing a copy on the chart).Patient lives in a house with her and adult Son and she uses a cane on occasion to assist with mobility.Home is the goal for dc and CM has initiated and will follow for dc planning.PCP is DR.Patrick Lopez.
[2021-01-22] MEDS: methylPREDNISolone Sod Succ 40 MG/ML VIAL IVPUSH ×2 (11:24→20:53)
[2021-01-22] MEDS: 0.9 % Sodium Chloride Flush 3 ML SYRINGE IVFLUSH ×3 (11:24→20:54)
[2021-01-22 13:49] LABS: VBG Base Excess -4.7 mmol/L; VBG HCO3 18 mmol/L (22-26); VBG pCO2 27 mmHg; VBG pH 7.42 (7.32-7.43); VBG pO2 49 mmHg
[2021-01-22 13:51] LABS: Venous Blood Gas Refer to POC result
--- NOTE | 2021-01-22 14:37 | PC.NURSE ---
Around 1230 Pt stated hadnt voided since night before - bladder scanned for 689cc, pt then voided 100cc. Md contacted - new prn bladder scan QS and straight cath if >350cc - straight cath for 800cc urine at 1330
--- NOTE | 2021-01-22 16:53 | HO.PM.IMPN ---
Subjective Subjective Date of Service: 01/22/21 Interval History: Acute hypoxemic respiratory failure secondary to COVID. Review of Systems Patient still short of breath and has some cough with phlegm Denies any nausea vomiting abdominal pain or fever or chills. Says that she urinatingless in comparison to yesterday Physical Exam Vital Signs: Vital Signs: Last Vital Signs Temp 98.3 F 01/22/21 15:35 Pulse 88 01/22/21 15:35 Resp 19 01/22/21 15:35 BP 124/66 01/22/21 15:35 Pulse Ox 98 01/22/21 15:35 Oxygen Flow Rate 4 01/21/21 10:50 Body Mass Index 26.9 Appearance: Alert.? Oriented X3.? not in distress.? Eyes: Pupils equal, round and reactive to light.? Sclera nonicteric.? ENT: Pharynx normal.? Moist mucous membranes. cvs: rrr, [id number] , no murmur res:air entry diminshed similar as yesterday , few rhochii , no rales abd: no rebound or guarding ,nt, bs present. ext pulses present , no cyanosis. neuro: axo3 , nonfocal. Objective Data Active Medications Benzonatate (Benzonatate 100 Mg Capsule) 100 mg PO TID PRN PRN Reason: Cough Last Admin: 01/22/21 01:49 Dose: 100 mg Documented by: GIGI Ezetimibe (Ezetimibe 10 Mg Tablet) 10 mg PO DAILY [facility] Last Admin: 01/22/21 07:54 Dose: 10 mg Documented by: ZECHARIAH Enoxaparin Sodium (Enoxaparin Sodium 40 Mg/0.4 Ml Syringe) 40 mg SUBCUT Q24H [facility] Last Admin: 01/21/21 18:54 Dose: 40 mg Documented by: MAIRA Famotidine (Famotidine 20 Mg Tablet) 20 mg PO BID [facility] Last Admin: 01/22/21 07:54 Dose: 20 mg Documented by: ZECHARIAH Lorazepam (Lorazepam 1 Mg Tablet) 1 mg PO BID PRN PRN Reason: anxiety/sleep Last Admin: 01/22/21 02:32 Dose: 1 mg Documented by: GIGI Losartan Potassium (Losartan Potassium 50 Mg Tablet) 50 mg PO DAILY [facility]; Protocol Last Admin: 01/22/21 07:54 Dose: 50 mg Documented by: ZECHARIAH Methylprednisolone Sodium Succinate (Methylprednisolone Sod Succ 40 Mg/Ml Vial) 40 mg IVPUSH Q12H [facility] Last Admin: 01/22/21 11:24 Dose: 40 mg Documented by: ZECHARIAH Metoprolol Succinate (Metoprolol Succinate Er 25 Mg Tab.Er.24h) 25 mg PO DAILY [facility]; Protocol Last Admin: 01/22/21 07:54 Dose: 25 mg Documented by: ZECHARIAH Sodium Chloride (0.9 % Sodium Chloride Flush 3 Ml Syringe) 3 ml IVFLUSH QSHIFT [facility] Last Admin: 01/22/21 15:59 Dose: 3 ml Documented by: ZECHARIAH Zinc Sulfate (Zinc Sulfate 220 Mg Capsule) 220 mg PO DAILY [facility] Last Admin: 01/22/21 07:54 Dose: 220 mg Documented by: ZECHARIAH Labs CBC & Chem 7: 01/21/21 12:42 01/22/21 05:59 Labs: Laboratory Results - last 24 hr 01/22/21 01/22/21 05:59 13:43 VBG pH 7.42 VBG pCO2 27 VBG pO2 49 VBG HCO3 18 L VBG O2 Saturation 77.0 VBG Base Excess -4.7 Anion Gap 15 Estim Creat Clear Calc 51.9 Estimated GFR > 60 Random Glucose 178 H Calcium 7.1 L D Total Bilirubin 0.3 Direct Bilirubin 0.2 AST 27 D ALT 15 Alkaline Phosphatase 50 D Total Protein 5.3 L D Albumin 3.3 L Microbiology Microbiology Results: Microbiology 01/21/21 14:17 Blood Culture - Preliminary Blood - Venous No growth after 24 hours. 01/21/21 12:42 Blood Culture - Preliminary Blood - Venous No growth after 24 hours. Assessment and Plan (1) Acute hypoxemic respiratory failure: Status: Acute (2) Hypoxia: Status: Acute Assessment and Plan: ? ? 1. Acute hypoxemic respiratory failure secondary to COVID pneumonia. Has leukopenia lymphopenia, COVID positive, blood culture pending Follow-up CRP 20, ferritin 1265, LDH:575. VBG noted-pH compensated. Shortness of breath is slightly better. Continue steroids, oxygen support, will also add azithromycin since patient has cough and phlegm ? Possible bronchitis component Id evaluation pending 2. Hlp: continue statin 3. Anxiety:? Continue home anxiety medication DVT prophylaxis:? Lovenox Quality Stroke Does the patient have a stroke diagnosis?: No VTE Prior VTE?: No VTE Risk Level:: Medical - moderate - high VTE Device Contraindication: N/A - Device Ordered VTE Drug Contraindication: N/A - Med Ordered
--- NOTE | 2021-01-22 17:36 | P.CNID_ITS ---
History of Present Illness Data of Consult Service Date: 01/22/21 Requesting physician: Jak Jimenez Primary Care Provider: Davidson Lopez MD [facility] Reason for consult: COVID with shortness of breath She presents with shortness of breath for ten days. She has some fever and no chills She is unvaccinated because she says she joins 50,000 people in asserting her rights not to be vaccinated and this statement is entirely unprompted Review of Systems Review of Systems: Yes all other systems are reviewed and are negative [facility] Social History Social History Household Members: Spouse Housing: House Do you presently have visiting nurse or other home services: No Alcohol intake: never Patient Tobacco Use Status: Never used Tobacco service: No Current occupational status: retired Meds Allergies Allergy/AdvReac Type Severity Reaction Status Date / Time Horse/Equine Containing Allergy Severe REDNESS Verified 01/18/21 19:54 Products AND [HORSE/EQUINE CONTAINING SWELLING PRODUCTS] aspirin [ASPIRIN] Allergy Unknown RASH Verified 01/18/21 19:54 ibuprofen [From MOTRIN] Allergy Unknown RASH Verified 01/18/21 19:54 latex [LATEX] Allergy Unknown RASH Verified 01/18/21 19:54 latex Allergy Unknown Unknown Uncoded 01/18/21 19:54 Motrin Allergy Unknown Unknown Uncoded 01/18/21 19:54 statins Allergy Unknown Unknown Uncoded 01/18/21 19:54 Active Medications: Current Medications Benzonatate (Benzonatate 100 Mg Capsule) 100 mg PO TID PRN PRN Reason: Cough Last Admin: 01/22/21 01:49 Dose: 100 mg Documented by: Ezetimibe (Ezetimibe 10 Mg Tablet) 10 mg PO DAILY [facility] Last Admin: 01/22/21 07:54 Dose: 10 mg Documented by: Enoxaparin Sodium (Enoxaparin Sodium 40 Mg/0.4 Ml Syringe) 40 mg SUBCUT Q24H [facility] Last Admin: 01/21/21 18:54 Dose: 40 mg Documented by: Famotidine (Famotidine 20 Mg Tablet) 20 mg PO BID [facility] Last Admin: 01/22/21 07:54 Dose: 20 mg Documented by: Azithromycin 500 mg/ Sodium (Chloride) 250 mls @ 125 mls/hr IV Q24H [facility] Lorazepam (Lorazepam 1 Mg Tablet) 1 mg PO BID PRN PRN Reason: anxiety/sleep Last Admin: 01/22/21 02:32 Dose: 1 mg Documented by: Losartan Potassium (Losartan Potassium 50 Mg Tablet) 50 mg PO DAILY [facility]; Protocol Last Admin: 01/22/21 07:54 Dose: 50 mg Documented by: Methylprednisolone Sodium Succinate (Methylprednisolone Sod Succ 40 Mg/Ml Vial) 40 mg IVPUSH Q12H [facility] Last Admin: 01/22/21 11:24 Dose: 40 mg Documented by: Metoprolol Succinate (Metoprolol Succinate Er 25 Mg Tab.Er.24h) 25 mg PO DAILY [facility]; Protocol Last Admin: 01/22/21 07:54 Dose: 25 mg Documented by: Sodium Chloride (0.9 % Sodium Chloride Flush 3 Ml Syringe) 3 ml IVFLUSH QSHIFT [facility] Last Admin: 01/22/21 15:59 Dose: 3 ml Documented by: Zinc Sulfate (Zinc Sulfate 220 Mg Capsule) 220 mg PO DAILY [facility] Last Admin: 01/22/21 07:54 Dose: 220 mg Documented by: Home Medications Medication Instructions Recorded Confirmed Last Taken Type ezetimibe 10 mg tablet 10 mg PO DAILY 01/18/21 01/21/21 Unknown History lansoprazole 30 mg capsule,delayed 30 mg PO DAILY 01/18/21 01/21/21 Unknown History release lorazepam 1 mg tablet 1 mg PO BID PRN 01/18/21 01/21/21 Unknown History losartan 50 mg tablet 50 mg PO DAILY 01/18/21 01/21/21 Unknown History benzonatate 100 mg capsule 100 mg PO TID PRN 01/21/21 01/21/21 Unknown History metoprolol succinate 25 mg 25 mg PO DAILY 01/21/21 01/21/21 Unknown History tablet,extended release 24 hr Physical Exam Vital Signs: Vital Signs: Last Vital Signs Temp 98.3 F 01/22/21 15:35 Pulse 88 01/22/21 15:35 Resp 19 01/22/21 15:35 BP 124/66 01/22/21 15:35 Pulse Ox 92 01/22/21 16:53 Oxygen Flow Rate 4 01/21/21 10:50 Body Mass Index 26.9 Const: General: cooperative Eyes: General: appearance normal, both eyes and all related structures Resp: Effort & Inspection: able to speak in complete sentences Cardio: Rate: regular rate Rhythm: regular rhythm GI: Palpation (GI): Soft to palpation and nontender Skin: General skin exam: no rashes or lesions noted Results Labs CBC & Chem 7: 01/28/21 06:25 01/31/21 12:34 Labs: Short CBC 01/21/21 Range/Units 12:42 Procalcitonin 0.22 ng/mL BMP 01/22/21 05:59 Sodium 133 L Potassium 4.6 Chloride 103 Carbon Dioxide 20 L BUN 19 H Creatinine 0.74 Calcium 7.1 L D Liver Function 01/22/21 Range/Units 05:59 Total Bilirubin 0.3 (0.0-1.0) mg/dL Direct Bilirubin 0.2 (0.0-0.5) mg/dL AST 27 D (5-31) U/L ALT 15 (0-31) U/L Alkaline Phosphatase 50 D (39-117) U/L Albumin 3.3 L (3.5-5.0) g/dL Microbiology Microbiology Results: Microbiology 01/21/21 14:17 Blood - Venous Blood Culture - Preliminary No growth after 24 hours. 01/21/21 12:42 Blood - Venous Blood Culture - Preliminary No growth after 24 hours. Assessment and Plan (1) Acute hypoxemic respiratory failure: Status: Acute (2) COVID-19: Status: Acute She has symptoms ten days She has hypoxia Continue steroids Too late for Remdesivir Oxygen support
[2021-01-22] MEDS: Enoxaparin Sodium 40 MG/0.4 ML SYRINGE SUBCUT (17:55)
[2021-01-23] VITALS (9 sets, daily range): BP systolic 108–160; BP diastolic 57–86; PULSE 71–85; RESP 16–19; TEMP 36.4–37.2; O2SAT 88–97
[2021-01-23] MEDS: Metoprolol Succinate ER 25 MG TAB.ER.24H PO (10:46)
[2021-01-23] MEDS: 0.9 % Sodium Chloride Flush 3 ML SYRINGE IVFLUSH ×3 (10:46→20:07)
[2021-01-23] MEDS: guaiFEN/Codeine SF 200/20/10ML 10 ML LIQUID 5 ML PO ×4 (10:46→20:17)
[2021-01-23] MEDS: Losartan Potassium 50 MG TABLET PO (10:47)
[2021-01-23] MEDS: Famotidine 20 MG TABLET PO (10:47)
[2021-01-23] MEDS: Ezetimibe 10 MG TABLET PO (10:47)
[2021-01-23] MEDS: Zinc Sulfate 220 MG CAPSULE PO (10:48)
[2021-01-23] MEDS: methylPREDNISolone Sod Succ 40 MG/ML VIAL IVPUSH ×2 (10:48→20:07)
--- NOTE | 2021-01-23 14:25 | P.PNIM_ITS ---
Subjective Subjective Date of Service: 01/23/21 Interval History: Acute hypoxemic respiratory failure secondary to COVID pneumonia. The has cough, has discomfort when she coughs. Review of Systems Denies any new complaint of chest pain or abdominal pain or fever or chills or nausea or vomiting Denies any weakness or numbness. Physical Exam Vital Signs: Vital Signs: Last Vital Signs Temp 98.0 F 01/23/21 12:00 Pulse 80 01/23/21 12:00 Resp 18 01/23/21 12:00 BP 160/72 H 01/23/21 12:00 Pulse Ox 90 L 01/23/21 12:00 Oxygen Flow Rate 4 01/21/21 10:50 Body Mass Index 26.9 Appearance: Alert.? Oriented X3.? not in distress.? Eyes: Pupils equal, round and reactive to light.? Sclera nonicteric.? ENT: Pharynx normal.? Moist mucous membranes. cvs: rrr, [id number] , no murmur res:air entry diminshed still similar to yesterday , no rales or wheezing abd: no rebound or guarding ,nt, bs present. ext pulses present , no cyanosis. neuro: axo3 , nonfocal. Objective Data Active Medications Benzonatate (Benzonatate 100 Mg Capsule) 100 mg PO TID PRN PRN Reason: Cough Last Admin: 01/22/21 20:53 Dose: 100 mg Documented by: LOTTIE Ezetimibe (Ezetimibe 10 Mg Tablet) 10 mg PO DAILY [facility] Last Admin: 01/23/21 10:47 Dose: 10 mg Documented by: RICHARD Enoxaparin Sodium (Enoxaparin Sodium 40 Mg/0.4 Ml Syringe) 40 mg SUBCUT Q24H [facility] Last Admin: 01/22/21 17:55 Dose: 40 mg Documented by: ZECHARIAH Famotidine (Famotidine 20 Mg Tablet) 20 mg PO BID [facility] Last Admin: 01/23/21 10:47 Dose: 20 mg Documented by: RICHARD Guaifenesin/Codeine Phosphate (Guaifen/Codeine Sf 200/20/10ml 10 Ml Liquid) 5 ml PO Q4H [facility] Last Admin: 01/23/21 13:22 Dose: 5 ml Documented by: RICHARD Lorazepam (Lorazepam 1 Mg Tablet) 1 mg PO BID PRN PRN Reason: anxiety/sleep Last Admin: 01/22/21 20:53 Dose: 1 mg Documented by: LOTTIE Losartan Potassium (Losartan Potassium 50 Mg Tablet) 50 mg PO DAILY [facility]; Protocol Last Admin: 01/23/21 10:47 Dose: 50 mg Documented by: RICHARD Methylprednisolone Sodium Succinate (Methylprednisolone Sod Succ 40 Mg/Ml Vial) 40 mg IVPUSH Q12H [facility] Last Admin: 01/23/21 10:48 Dose: 40 mg Documented by: RICHARD Metoprolol Succinate (Metoprolol Succinate Er 25 Mg Tab.Er.24h) 25 mg PO DAILY [facility]; Protocol Last Admin: 01/23/21 10:46 Dose: 25 mg Documented by: RICHARD Sodium Chloride (0.9 % Sodium Chloride Flush 3 Ml Syringe) 3 ml IVFLUSH QSHIFT [facility] Last Admin: 01/23/21 10:46 Dose: 3 ml Documented by: RICHARD Zinc Sulfate (Zinc Sulfate 220 Mg Capsule) 220 mg PO DAILY [facility] Last Admin: 01/23/21 10:48 Dose: 220 mg Documented by: RICHARD Labs CBC & Chem 7: 01/21/21 12:42 01/22/21 05:59 Labs: Laboratory Results - last 24 hr 01/22/21 19:30 Ur Strep pneumoniae Ag Cancelled Microbiology Microbiology Results: Microbiology 01/21/21 14:17 Blood Culture - Preliminary Blood - Venous No growth after 24 hours. 01/21/21 12:42 Blood Culture - Preliminary Blood - Venous No growth after 24 hours. Assessment and Plan (1) Acute hypoxemic respiratory failure: Status: Acute (2) COVID-19: Status: Acute (3) Hypoxia: Status: Acute Assessment and Plan: ?? 1. Acute hypoxemic respiratory failure secondary to COVID pneumonia. Has leukopenia lymphopenia, COVID positive, blood culture pending Follow-up CRP 20, ferritin 1265, LDH:575. VBG noted-pH compensated. Shortness of breath is slightly better. Continue steroids, oxygen support, will also add azithromycin since patient has cough and phlegm ?? Possible bronchitis component Id evaluation noted -continue above management. still sob -added echo. 2. Hlp: continue statin 3. Anxiety:? Continue home anxiety medication DVT prophylaxis:? Lovenox Quality Stroke Does the patient have a stroke diagnosis?: No VTE Prior VTE?: No VTE Risk Level:: Medical - moderate - high VTE Device Contraindication: N/A - Device Ordered VTE Drug Contraindication: N/A - Med Ordered
[2021-01-23] MEDS: Enoxaparin Sodium 40 MG/0.4 ML SYRINGE SUBCUT (17:43)
[2021-01-23] MEDS: LORazepam 1 MG TABLET PO (20:29)
[2021-01-24] VITALS (7 sets, daily range): BP systolic 128–147; BP diastolic 61–94; PULSE 70–94; RESP 18–20; TEMP 36.3–37.1; O2SAT 83–98
[2021-01-24] MEDS: 0.9 % Sodium Chloride Flush 3 ML SYRINGE IVFLUSH ×3 (07:26→21:04)
[2021-01-24 07:27] LABS: Anion Gap 14 (12-20); Blood Urea Nitrogen 23 mg/dL (9-16); C Reactive Protein 5.25 mg/dL (< or = 0.50); Calcium 7.4 mg/dL (8.4-10.2); Carbon Dioxide 23 mmol/L (22-29); Chloride 106 mmol/L (96-108); Creatinine Clr Calc Pharmacy 54.9; Estimated Glomerular Filt Rate > 60; Glucose Random 166 mg/dL (60-115); Sodium 138 mmol/L (135-145)
[2021-01-24] MEDS: Ezetimibe 10 MG TABLET PO (07:27)
[2021-01-24] MEDS: Metoprolol Succinate ER 25 MG TAB.ER.24H PO (07:27)
[2021-01-24] MEDS: Zinc Sulfate 220 MG CAPSULE PO (07:27)
[2021-01-24] MEDS: LORazepam 1 MG TABLET PO ×2 (07:28→21:03)
[2021-01-24] MEDS: Losartan Potassium 50 MG TABLET PO (07:28)
[2021-01-24] MEDS: Famotidine 20 MG TABLET PO ×2 (07:28→21:03)
[2021-01-24 07:43] LABS: Ferritin 582 ng/mL (10-250)
[2021-01-24 10:43] LABS: VBG Base Excess -0.5 mmol/L; VBG HCO3 23 mmol/L (22-26); VBG pCO2 35 mmHg; VBG pH 7.42 (7.32-7.43); VBG pO2 43 mmHg
[2021-01-24 10:52] LABS: Venous Blood Gas Refer to POC result
[2021-01-24] MEDS: methylPREDNISolone Sod Succ 40 MG/ML VIAL IVPUSH ×2 (10:59→21:03)
[2021-01-24] MEDS: guaiFEN/Codeine SF 200/20/10ML 10 ML LIQUID 5 ML PO ×3 (12:58→21:03)
--- NOTE | 2021-01-24 16:37 | HO.PM.IMPN ---
Subjective Subjective Date of Service: 01/24/21 Interval History: Acute hypoxemic? respiratory failure secondary to COVID pneumonia. Review of Systems Patient still short of breath, oxygen months going up today Denies any nausea vomiting or abdominal pain or fever or chills Has cough. Physical Exam Vital Signs: Vital Signs: Last Vital Signs Temp 98.4 F 01/24/21 16:00 Pulse 70 01/24/21 16:00 Resp 20 01/24/21 16:00 BP 147/67 H 01/24/21 16:00 Pulse Ox 98 01/24/21 16:00 Oxygen Flow Rate 4 01/21/21 10:50 Body Mass Index 26.9 Appearance: Alert.? Oriented X3.? not in distress.?on nbrm Eyes: Pupils equal, round and reactive to light.? Sclera nonicteric.? ENT: Pharynx normal.? Moist mucous membranes. cvs: rrr, [id number] , no murmur res:air entry dimished at bases ,no wheezing or rhionchii abd: no rebound or guarding ,nt, bs present. ext pulses present , no cyanosis. neuro: axo3 , nonfocal. Objective Data Active Medications Benzonatate (Benzonatate 100 Mg Capsule) 100 mg PO TID PRN PRN Reason: Cough Last Admin: 01/22/21 20:53 Dose: 100 mg Documented by: LOTTIE Ezetimibe (Ezetimibe 10 Mg Tablet) 10 mg PO DAILY [facility] Last Admin: 01/24/21 07:27 Dose: 10 mg Documented by: WILLIAM Enoxaparin Sodium (Enoxaparin Sodium 40 Mg/0.4 Ml Syringe) 40 mg SUBCUT Q24H [facility] Last Admin: 01/23/21 17:43 Dose: 40 mg Documented by: CATHERINE Famotidine (Famotidine 20 Mg Tablet) 20 mg PO BID [facility] Last Admin: 01/24/21 07:28 Dose: 20 mg Documented by: WILLIAM Guaifenesin/Codeine Phosphate (Guaifen/Codeine Sf 200/20/10ml 10 Ml Liquid) 5 ml PO Q4H [facility] Last Admin: 01/24/21 12:58 Dose: 5 ml Documented by: WILLIAM Lorazepam (Lorazepam 1 Mg Tablet) 1 mg PO BID PRN PRN Reason: anxiety/sleep Last Admin: 01/24/21 07:28 Dose: 1 mg Documented by: WILLIAM Losartan Potassium (Losartan Potassium 50 Mg Tablet) 50 mg PO DAILY [facility]; Protocol Last Admin: 01/24/21 07:28 Dose: 50 mg Documented by: WILLIAM Methylprednisolone Sodium Succinate (Methylprednisolone Sod Succ 40 Mg/Ml Vial) 40 mg IVPUSH Q12H [facility] Last Admin: 01/24/21 10:59 Dose: 40 mg Documented by: WILLIAM Metoprolol Succinate (Metoprolol Succinate Er 25 Mg Tab.Er.24h) 25 mg PO DAILY [facility]; Protocol Last Admin: 01/24/21 07:27 Dose: 25 mg Documented by: WILLIAM Sodium Chloride (0.9 % Sodium Chloride Flush 3 Ml Syringe) 3 ml IVFLUSH QSHIFT [facility] Last Admin: 01/24/21 07:26 Dose: 3 ml Documented by: WILLIAM Zinc Sulfate (Zinc Sulfate 220 Mg Capsule) 220 mg PO DAILY [facility] Last Admin: 01/24/21 07:27 Dose: 220 mg Documented by: WILLIAM Labs CBC & Chem 7: 01/21/21 12:42 01/24/21 06:06 Labs: Laboratory Results - last 24 hr 01/24/21 01/24/21 06:06 10:19 VBG pH 7.42 VBG pCO2 35 VBG pO2 43 VBG HCO3 23 VBG O2 Saturation 67.0 VBG Base Excess -0.5 Anion Gap 14 Estim Creat Clear Calc 54.9 Estimated GFR > 60 Random Glucose 166 H Calcium 7.4 L Ferritin 582 H C-Reactive Protein 5.25 H Microbiology Microbiology Results: Microbiology 01/21/21 14:17 Blood Culture - Preliminary Blood - Venous No growth after 48 hours. 01/21/21 12:42 Blood Culture - Preliminary Blood - Venous No growth after 48 hours. Assessment and Plan (1) Acute hypoxemic respiratory failure: Status: Acute (2) COVID-19: Status: Acute (3) Hypoxia: Status: Acute Assessment and Plan: 1. Acute hypoxemic respiratory failure secondary to COVID pneumonia. Has leukopenia lymphopenia, COVID positive, blood culture pending Follow-up CRP 20-improving to 5, ferritin 1265 to 582 improving VBG noted-pH compensated. Shortness of breath is slightly similar but ocxygen demand going going up , now on nbrm. Continue steroids, oxygen support, azithromycin since patient has cough and phlegm ?? Possible bronchitis component Id evaluation noted -continue above management. echo added 2. Hlp: continue statin 3. Anxiety:? Continue home anxiety medication DVT prophylaxis:? Lovenox Quality Stroke Does the patient have a stroke diagnosis?: No VTE Prior VTE?: No VTE Risk Level:: Medical - moderate - high VTE Device Contraindication: N/A - Device Ordered VTE Drug Contraindication: N/A - Med Ordered
[2021-01-24] MEDS: Enoxaparin Sodium 40 MG/0.4 ML SYRINGE SUBCUT (17:44)
[2021-01-24] MEDS: Azithromycin 500 MG TABLET PO (17:44)
[2021-01-25] VITALS (8 sets, daily range): BP systolic 159–180; BP diastolic 60–86; PULSE 64–108; RESP 15–20; TEMP 36.1–37; O2SAT 92–99
[2021-01-25] MEDS: guaiFEN/Codeine SF 200/20/10ML 10 ML LIQUID 5 ML PO ×4 (06:06→17:26)
[2021-01-25 06:19] LABS: Anion Gap 13 (12-20); Blood Urea Nitrogen 23 mg/dL (9-16); Calcium 7.4 mg/dL (8.4-10.2); Carbon Dioxide 25 mmol/L (22-29); Chloride 106 mmol/L (96-108); Creatinine Clr Calc Pharmacy 53.4; Estimated Glomerular Filt Rate > 60; Glucose Random 185 mg/dL (60-115); Sodium 139 mmol/L (135-145)
--- NOTE | 2021-01-25 07:46 | PC.NURSE ---
[id number] pt c/o urge to void. OOB with 1 assist to bsc - unable to void. bladder distended. bladder scan for 480ml reported to Dr. Thomas. straight cath order obtained & performed for 550ml yellow urine. to check in 6h to assess for need for f/c. bladder scanned @ 0500 for 251 ml urine - bladder not distended and pt has no urge to void. report to next shift to f/u.
[2021-01-25] MEDS: Famotidine 20 MG TABLET PO ×2 (10:56→22:08)
[2021-01-25] MEDS: 0.9 % Sodium Chloride Flush 3 ML SYRINGE IVFLUSH ×3 (10:56→22:08)
[2021-01-25] MEDS: methylPREDNISolone Sod Succ 40 MG/ML VIAL IVPUSH ×2 (10:56→22:08)
[2021-01-25] MEDS: Ezetimibe 10 MG TABLET PO (10:56)
[2021-01-25] MEDS: Metoprolol Succinate ER 25 MG TAB.ER.24H PO (10:56)
[2021-01-25] MEDS: Losartan Potassium 50 MG TABLET PO (10:56)
[2021-01-25] MEDS: Zinc Sulfate 220 MG CAPSULE PO (10:57)
--- NOTE | 2021-01-25 12:08 | HO.PM.IMPN ---
Subjective Subjective Date of Service: 01/25/21 Interval History: Acute hypoxemic respiratory failure secondary to COVID pneumonia Review of Systems Seems similar to shortness of breath as yesterday, denies any cough Denies any fever or chills or nausea or vomiting or abdominal pain. Physical Exam Vital Signs: Vital Signs: Last Vital Signs Temp 97.6 F 01/25/21 11:45 Pulse 69 01/25/21 11:45 Resp 18 01/25/21 11:45 BP 180/86 H 01/25/21 11:45 Pulse Ox 92 01/25/21 11:45 Oxygen Flow Rate 4 01/21/21 10:50 Body Mass Index 26.9 Appearance: Alert.? Oriented X3.? not in distress.?on nbrm Eyes: Pupils equal, round and reactive to light.? Sclera nonicteric.? ENT: Pharynx normal.? Moist mucous membranes. cvs: rrr, [id number] , no murmur res:air entry dimished still ,no wheezing or rhionchii abd: no rebound or guarding ,nt, bs present. ext pulses present , no cyanosis. neuro: axo3 , nonfocal. Objective Data Active Medications Azithromycin (Azithromycin 500 Mg Tablet) 500 mg PO Q24H [facility] Last Admin: 01/24/21 17:44 Dose: 500 mg Documented by: LEONIDAS Benzonatate (Benzonatate 100 Mg Capsule) 100 mg PO TID PRN PRN Reason: Cough Last Admin: 01/22/21 20:53 Dose: 100 mg Documented by: LOTTIE Ezetimibe (Ezetimibe 10 Mg Tablet) 10 mg PO DAILY [facility] Last Admin: 01/25/21 10:56 Dose: 10 mg Documented by: RADHA Enoxaparin Sodium (Enoxaparin Sodium 40 Mg/0.4 Ml Syringe) 40 mg SUBCUT Q24H [facility] Last Admin: 01/24/21 17:44 Dose: 40 mg Documented by: LEONIDAS Famotidine (Famotidine 20 Mg Tablet) 20 mg PO BID [facility] Last Admin: 01/25/21 10:56 Dose: 20 mg Documented by: RADHA Guaifenesin/Codeine Phosphate (Guaifen/Codeine Sf 200/20/10ml 10 Ml Liquid) 5 ml PO Q4H [facility] Last Admin: 01/25/21 10:57 Dose: 5 ml Documented by: RADHA Lorazepam (Lorazepam 1 Mg Tablet) 1 mg PO BID PRN PRN Reason: anxiety/sleep Last Admin: 01/24/21 21:03 Dose: 1 mg Documented by: RASHID Losartan Potassium (Losartan Potassium 50 Mg Tablet) 50 mg PO DAILY [facility]; Protocol Last Admin: 01/25/21 10:56 Dose: 50 mg Documented by: RADHA Methylprednisolone Sodium Succinate (Methylprednisolone Sod Succ 40 Mg/Ml Vial) 40 mg IVPUSH Q12H [facility] Last Admin: 01/25/21 10:56 Dose: 40 mg Documented by: RADHA Metoprolol Succinate (Metoprolol Succinate Er 25 Mg Tab.Er.24h) 25 mg PO DAILY [facility]; Protocol Last Admin: 01/25/21 10:56 Dose: 25 mg Documented by: RADHA Sodium Chloride (0.9 % Sodium Chloride Flush 3 Ml Syringe) 3 ml IVFLUSH QSHIFT [facility] Last Admin: 01/25/21 10:56 Dose: 3 ml Documented by: RADHA Zinc Sulfate (Zinc Sulfate 220 Mg Capsule) 220 mg PO DAILY [facility] Last Admin: 01/25/21 10:57 Dose: 220 mg Documented by: RADHA Labs CBC & Chem 7: 01/21/21 12:42 01/25/21 05:45 Labs: Laboratory Results - last 24 hr 01/25/21 05:45 Anion Gap 13 Estim Creat Clear Calc 53.4 Estimated GFR > 60 Random Glucose 185 H Calcium 7.4 L Assessment and Plan (1) Acute hypoxemic respiratory failure: Status: Acute (2) COVID-19: Status: Acute (3) Hypoxia: Status: Acute Assessment and Plan: 1. Acute hypoxemic respiratory failure secondary to COVID pneumonia. Has leukopenia lymphopenia, COVID positive, blood culture pending Follow-up CRP 20-improving to 5, ferritin 1265 to 582 improving VBG noted-pH compensated. Shortness of breath i similar but oxygen , still on nbrm. Continue steroids, oxygen support, azithromycin since patient has cough and phlegm ?? Possible bronchitis component. added incentive [place], chest physio. echo added 2. Hlp: continue statin 3. Anxiety:? Continue home anxiety medication DVT prophylaxis:? Lovenox Quality Stroke Does the patient have a stroke diagnosis?: No VTE Prior VTE?: No VTE Risk Level:: Medical - moderate - high VTE Device Contraindication: N/A - Device Ordered VTE Drug Contraindication: N/A - Med Ordered
[2021-01-25] MEDS: amLODIPine Besylate 2.5 MG TABLET PO (13:53)
[2021-01-25] MEDS: Azithromycin 500 MG TABLET PO (17:26)
[2021-01-25] MEDS: Enoxaparin Sodium 40 MG/0.4 ML SYRINGE SUBCUT (17:26)
[2021-01-25] MEDS: LORazepam 1 MG TABLET PO (22:08)
[2021-01-26] VITALS (8 sets, daily range): BP systolic 118–164; BP diastolic 60–89; PULSE 63–100; RESP 18–20; TEMP 36.3–37.1; O2SAT 92–100
[2021-01-26 00:02] LABS: Strep Pneumo Ag urine Not Detected (Not Detected)
[2021-01-26] MEDS: Losartan Potassium 50 MG TABLET PO (09:21)
[2021-01-26] MEDS: Ezetimibe 10 MG TABLET PO (09:21)
[2021-01-26] MEDS: Famotidine 20 MG TABLET PO ×2 (09:21→21:35)
[2021-01-26] MEDS: amLODIPine Besylate 2.5 MG TABLET PO (09:21)
[2021-01-26] MEDS: methylPREDNISolone Sod Succ 40 MG/ML VIAL IVPUSH ×2 (09:21→21:35)
[2021-01-26] MEDS: 0.9 % Sodium Chloride Flush 3 ML SYRINGE IVFLUSH ×3 (09:22→21:35)
[2021-01-26] MEDS: Metoprolol Succinate ER 25 MG TAB.ER.24H PO (09:22)
[2021-01-26] MEDS: Zinc Sulfate 220 MG CAPSULE PO (09:22)
--- NOTE | 2021-01-26 13:13 | HO.PM.IMPN ---
Subjective Subjective Date of Service: 01/26/21 Interval History: Acute hypoxemic respiratory failure secondary to COVID. Review of Systems Patient still short of but slightly better than yesterday Dry cough Denies any chest pain or abdominal pain or nausea vomiting. Physical Exam Vital Signs: Vital Signs: Last Vital Signs Temp 98.8 F 01/26/21 11:49 Pulse 63 01/26/21 11:49 Resp 20 01/26/21 11:49 BP 134/89 01/26/21 11:49 Pulse Ox 93 01/26/21 11:49 Oxygen Flow Rate 4 01/21/21 10:50 Body Mass Index 26.9 Appearance: Alert.? Oriented X3.? not in distress.?on nbrm Eyes: Pupils equal, round and reactive to light.? Sclera nonicteric.? ENT: Pharynx normal.? Moist mucous membranes. cvs: rrr, [id number] , no murmur res:air entry dimished still ,no wheezing or rhionchii abd: no rebound or guarding ,nt, bs present. ext pulses present , no cyanosis. neuro: axo3 , nonfocal. Objective Data Active Medications Amlodipine Besylate (Amlodipine Besylate 2.5 Mg Tablet) 2.5 mg PO DAILY [facility]; Protocol Last Admin: 01/26/21 09:21 Dose: 2.5 mg Documented by: RADHA Azithromycin (Azithromycin 500 Mg Tablet) 500 mg PO Q24H [facility] Last Admin: 01/25/21 17:26 Dose: 500 mg Documented by: RADHA Benzonatate (Benzonatate 100 Mg Capsule) 100 mg PO TID PRN PRN Reason: Cough Last Admin: 01/22/21 20:53 Dose: 100 mg Documented by: LOTTIE Ezetimibe (Ezetimibe 10 Mg Tablet) 10 mg PO DAILY [facility] Last Admin: 01/26/21 09:21 Dose: 10 mg Documented by: RADHA Enoxaparin Sodium (Enoxaparin Sodium 40 Mg/0.4 Ml Syringe) 40 mg SUBCUT Q24H [facility] Last Admin: 01/25/21 17:26 Dose: 40 mg Documented by: RADHA Famotidine (Famotidine 20 Mg Tablet) 20 mg PO BID [facility] Last Admin: 01/26/21 09:21 Dose: 20 mg Documented by: RADHA Guaifenesin/Codeine Phosphate (Guaifen/Codeine Sf 200/20/10ml 10 Ml Liquid) 5 ml PO Q4H PRN PRN Reason: Cough Lorazepam (Lorazepam 1 Mg Tablet) 1 mg PO BID PRN PRN Reason: anxiety/sleep Last Admin: 01/25/21 22:08 Dose: 1 mg Documented by: RASHID Losartan Potassium (Losartan Potassium 50 Mg Tablet) 50 mg PO DAILY [facility]; Protocol Last Admin: 01/26/21 09:21 Dose: 50 mg Documented by: RADHA Methylprednisolone Sodium Succinate (Methylprednisolone Sod Succ 40 Mg/Ml Vial) 40 mg IVPUSH Q12H [facility] Last Admin: 01/26/21 09:21 Dose: 40 mg Documented by: RADHA Metoprolol Succinate (Metoprolol Succinate Er 25 Mg Tab.Er.24h) 25 mg PO DAILY [facility]; Protocol Last Admin: 01/26/21 09:22 Dose: 25 mg Documented by: RADHA Sodium Chloride (0.9 % Sodium Chloride Flush 3 Ml Syringe) 3 ml IVFLUSH QSHIFT [facility] Last Admin: 01/26/21 09:22 Dose: 3 ml Documented by: RADHA Zinc Sulfate (Zinc Sulfate 220 Mg Capsule) 220 mg PO DAILY [facility] Last Admin: 01/26/21 09:22 Dose: 220 mg Documented by: RADHA Labs CBC & Chem 7: 01/21/21 12:42 01/25/21 05:45 Labs: Laboratory Results - last 24 hr 01/22/21 19:30 Ur Strep pneumoniae Ag Not Detected Assessment and Plan (1) COVID-19: Status: Acute (2) Hypoxia: Status: Acute (3) Acute hypoxemic respiratory failure: Status: Acute Assessment and Plan: 1. Acute hypoxemic respiratory failure secondary to COVID pneumonia. Has leukopenia lymphopenia, COVID positive, blood culture pending Follow-up CRP 20-improving to 5, ferritin 1265 to 582 improving VBG119 noted-pH compensated. Shortness of breath i similar but oxygen , still? on nbrm. Continue steroids, oxygen support, azithromycin since patient has cough and phlegm ?? Possible bronchitis component. added incentive [place], chest physio. echo added 2. Hlp: continue statin 3. Anxiety:? Continue home anxiety medication DVT prophylaxis:? Lovenox Quality Stroke Does the patient have a stroke diagnosis?: No VTE Prior VTE?: No VTE Risk Level:: Medical - moderate - high VTE Device Contraindication: N/A - Device Ordered VTE Drug Contraindication: N/A - Med Ordered
[2021-01-26] MEDS: Enoxaparin Sodium 40 MG/0.4 ML SYRINGE SUBCUT (17:21)
[2021-01-26] MEDS: Azithromycin 500 MG TABLET PO (17:21)
[2021-01-27] VITALS (9 sets, daily range): BP systolic 125–152; BP diastolic 9–66; PULSE 63–84; RESP 18–20; TEMP 36.2–36.8; O2SAT 85–99
[2021-01-27] MEDS: LORazepam 1 MG TABLET PO (00:02)
--- NOTE | 2021-01-27 06:54 | PC.NURSE ---
Patient did not void overnight and refused bladder scans throughout the night. Pt reluctantly allowed a bladder scan at 0640, bladder scan showed 452. Pt up to commode to try and void, able to void 100ml. PVR increased and shows 462ml.
[2021-01-27] MEDS: Losartan Potassium 50 MG TABLET PO (09:51)
[2021-01-27] MEDS: Famotidine 20 MG TABLET PO ×2 (09:51→21:28)
[2021-01-27] MEDS: methylPREDNISolone Sod Succ 40 MG/ML VIAL IVPUSH ×2 (09:51→21:28)
[2021-01-27] MEDS: Ezetimibe 10 MG TABLET PO (09:52)
[2021-01-27] MEDS: Zinc Sulfate 220 MG CAPSULE PO (09:52)
[2021-01-27] MEDS: amLODIPine Besylate 2.5 MG TABLET PO (09:52)
[2021-01-27] MEDS: Metoprolol Succinate ER 25 MG TAB.ER.24H PO (09:52)
[2021-01-27] MEDS: 0.9 % Sodium Chloride Flush 3 ML SYRINGE IVFLUSH ×3 (09:52→21:29)
--- NOTE | 2021-01-27 10:22 | MHC.CM.PN ---
EMR REVIEWED, PT REMAIN ON NON-REBREATHER AT15L O2 AND IV SOLU-MEDROL, NO PLAN FOR D/C TODAY, CM WILL CONT TO FOLLOW D/C NEEDS. D/C PLAN CONT'S TO BE HOME VS HOME W/SERVICES AND FAMILY FOR TRANSPORT.
--- NOTE | 2021-01-27 12:44 | HO.PM.IMPN ---
Subjective Subjective Date of Service: 01/27/21 Interval History: Acute hypoxemic respiratory failure secondary to see COVID Review of Systems Patient still short of breath but seems to be improving in compression to yesterday. Cough improving Denies any nausea vomiting or abdominal pain or any weakness numbness. Physical Exam Vital Signs: Vital Signs: Last Vital Signs Temp 98.0 F 01/27/21 12:00 Pulse 78 01/27/21 12:00 Resp 20 01/27/21 12:00 BP 136/63 01/27/21 12:00 Pulse Ox 94 01/27/21 12:00 Oxygen Flow Rate 4 01/21/21 10:50 Body Mass Index 26.9 Appearance: Alert.? Oriented X3.? not in distress.?on nbrm Eyes: Pupils equal, round and reactive to light.? Sclera nonicteric.? ENT: Pharynx normal.? Moist mucous membranes. cvs: rrr, [id number] , no murmur res:air entry dimished still ,no wheezing or rhionchii abd: no rebound or guarding ,nt, bs present. ext pulses present , no cyanosis. neuro: axo3 , nonfocal Objective Data Active Medications Amlodipine Besylate (Amlodipine Besylate 2.5 Mg Tablet) 2.5 mg PO DAILY [facility]; Protocol Last Admin: 01/27/21 09:52 Dose: 2.5 mg Documented by: MADISON Azithromycin (Azithromycin 500 Mg Tablet) 500 mg PO Q24H [facility] Last Admin: 01/26/21 17:21 Dose: 500 mg Documented by: RADHA Benzonatate (Benzonatate 100 Mg Capsule) 100 mg PO TID PRN PRN Reason: Cough Last Admin: 01/22/21 20:53 Dose: 100 mg Documented by: LOTTIE Ezetimibe (Ezetimibe 10 Mg Tablet) 10 mg PO DAILY [facility] Last Admin: 01/27/21 09:52 Dose: 10 mg Documented by: MADISON Enoxaparin Sodium (Enoxaparin Sodium 40 Mg/0.4 Ml Syringe) 40 mg SUBCUT Q24H [facility] Last Admin: 01/26/21 17:21 Dose: 40 mg Documented by: RADHA Famotidine (Famotidine 20 Mg Tablet) 20 mg PO BID [facility] Last Admin: 01/27/21 09:51 Dose: 20 mg Documented by: MADISON Guaifenesin/Codeine Phosphate (Guaifen/Codeine Sf 200/20/10ml 10 Ml Liquid) 5 ml PO Q4H PRN PRN Reason: Cough Lorazepam (Lorazepam 1 Mg Tablet) 1 mg PO BID PRN PRN Reason: anxiety/sleep Last Admin: 01/27/21 00:02 Dose: 1 mg Documented by: ANDJANEL Losartan Potassium (Losartan Potassium 50 Mg Tablet) 50 mg PO DAILY [facility]; Protocol Last Admin: 01/27/21 09:51 Dose: 50 mg Documented by: MADISON Methylprednisolone Sodium Succinate (Methylprednisolone Sod Succ 40 Mg/Ml Vial) 40 mg IVPUSH Q12H [facility] Last Admin: 01/27/21 09:51 Dose: 40 mg Documented by: MADISON Metoprolol Succinate (Metoprolol Succinate Er 25 Mg Tab.Er.24h) 25 mg PO DAILY [facility]; Protocol Last Admin: 01/27/21 09:52 Dose: 25 mg Documented by: MADISON Sodium Chloride (0.9 % Sodium Chloride Flush 3 Ml Syringe) 3 ml IVFLUSH QSHIFT [facility] Last Admin: 01/27/21 09:52 Dose: 3 ml Documented by: MADISON Zinc Sulfate (Zinc Sulfate 220 Mg Capsule) 220 mg PO DAILY [facility] Last Admin: 01/27/21 09:52 Dose: 220 mg Documented by: MADISON Labs CBC & Chem 7: 01/21/21 12:42 01/25/21 05:45 Microbiology Microbiology Results: Microbiology 01/21/21 14:17 Blood Culture - Final Blood - Venous No growth after 5 days. 01/21/21 12:42 Blood Culture - Final Blood - Venous No growth after 5 days. Assessment and Plan (1) Acute hypoxemic respiratory failure: Status: Acute (2) COVID-19: Status: Acute (3) Hypoxia: Status: Acute Assessment and Plan: 1. Acute hypoxemic respiratory failure secondary to COVID pneumonia. Has leukopenia lymphopenia, COVID positive, blood culture pending Follow-up CRP 20-improving to 5, ferritin 1265 to 582 improving, will repeat inflammatory markers in the a.m. VBG103/26 noted-pH compensated. Shortness of breath i similar but oxygen , still? on nbrm. Continue steroids, oxygen support, azithromycin day4 ?? Possible bronchitis component. added incentive [place], chest physio. echo added 2. Hlp: continue statin 3. Anxiety:? Continue home anxiety medication DVT prophylaxis:? Lovenox Quality Stroke Does the patient have a stroke diagnosis?: No VTE Prior VTE?: No VTE Risk Level:: Medical - moderate - high VTE Device Contraindication: N/A - Device Ordered VTE Drug Contraindication: N/A - Med Ordered
[2021-01-27] MEDS: Azithromycin 500 MG TABLET PO (17:59)
[2021-01-27] MEDS: Enoxaparin Sodium 40 MG/0.4 ML SYRINGE SUBCUT (17:59)
--- NOTE | 2021-01-27 18:55 | PC.NURSE ---
Patient's bladder scanned at 1600, scan showed 370, post scan void 300ml,
[2021-01-28] VITALS (7 sets, daily range): BP systolic 142–170; BP diastolic 59–87; PULSE 63–95; RESP 15–20; TEMP 36.6–37.2; O2SAT 94–98
[2021-01-28 06:55] LABS: Hematocrit 36.2 % (37.0-47.0); Hemoglobin 12.1 g/dl (12.0-16.0); Mean Corpuscular HGB Conc 33.4 g/dl (31.0-35.0); Mean Corpuscular Hemoglobin 29.4 pg (27.0-33.0); Mean Corpuscular Volume 88.1 fL (80.0-98.0); Mean Platelet Volume 9.5 fL (9.4-12.3); Platelet Count 479 X10*3/uL (160-400); Red Blood Count 4.11 X10*6/uL (4.20-5.50); Red Cell Distribution Width 13.2 % (11.0-16.0)
[2021-01-28 07:08] LABS: Anion Gap 16 (12-20); Blood Urea Nitrogen 22 mg/dL (9-16); C Reactive Protein 2.93 mg/dL (< or = 0.50); Carbon Dioxide 24 mmol/L (22-29); Chloride 104 mmol/L (96-108); Creatinine Clr Calc Pharmacy 56.5; Estimated Glomerular Filt Rate > 60; Glucose Random 162 mg/dL (60-115); Potassium 5.2 mmol/L (3.3-5.1); Sodium 139 mmol/L (135-145)
[2021-01-28 07:25] LABS: Ferritin 502 ng/mL (10-250)
[2021-01-28] MEDS: amLODIPine Besylate 2.5 MG TABLET PO (08:26)
[2021-01-28] MEDS: Zinc Sulfate 220 MG CAPSULE PO (08:26)
[2021-01-28] MEDS: Ezetimibe 10 MG TABLET PO (08:26)
[2021-01-28] MEDS: Metoprolol Succinate ER 25 MG TAB.ER.24H PO (08:26)
[2021-01-28] MEDS: Famotidine 20 MG TABLET PO ×2 (08:26→21:01)
[2021-01-28] MEDS: Losartan Potassium 50 MG TABLET PO (08:26)
[2021-01-28] MEDS: methylPREDNISolone Sod Succ 40 MG/ML VIAL IVPUSH ×2 (09:46→21:00)
[2021-01-28] MEDS: 0.9 % Sodium Chloride Flush 3 ML SYRINGE IVFLUSH ×3 (09:46→21:02)
--- NOTE | 2021-01-28 16:11 | P.PNIM_ITS ---
Subjective Subjective Date of Service: 01/28/21 Interval History: f/u on covid related acute hypoxic resp failure still shob and still requiring high amount of O2 breathing feels heavy Review of Systems no fever no sob Physical Exam Vital Signs: Vital Signs: Last Vital Signs Temp 98 F 01/28/21 16:00 Pulse 68 01/28/21 16:00 Resp 15 01/28/21 16:00 BP 147/79 H 01/28/21 16:00 Pulse Ox 98 01/28/21 16:00 Oxygen Flow Rate 4 01/21/21 10:50 Body Mass Index 26.9 Objective Data Active Medications Amlodipine Besylate (Amlodipine Besylate 2.5 Mg Tablet) 2.5 mg PO DAILY [facility]; Protocol Last Admin: 01/28/21 08:26 Dose: 2.5 mg Documented by: MADISON Azithromycin (Azithromycin 500 Mg Tablet) 500 mg PO Q24H [facility] Last Admin: 01/27/21 17:59 Dose: 500 mg Documented by: MADISON Benzonatate (Benzonatate 100 Mg Capsule) 100 mg PO TID PRN PRN Reason: Cough Last Admin: 01/22/21 20:53 Dose: 100 mg Documented by: LOTTIE Ezetimibe (Ezetimibe 10 Mg Tablet) 10 mg PO DAILY [facility] Last Admin: 01/28/21 08:26 Dose: 10 mg Documented by: MADISON Enoxaparin Sodium (Enoxaparin Sodium 40 Mg/0.4 Ml Syringe) 40 mg SUBCUT Q24H [facility] Last Admin: 01/27/21 17:59 Dose: 40 mg Documented by: MADISON Famotidine (Famotidine 20 Mg Tablet) 20 mg PO BID [facility] Last Admin: 01/28/21 08:26 Dose: 20 mg Documented by: MADISON Guaifenesin/Codeine Phosphate (Guaifen/Codeine Sf 200/20/10ml 10 Ml Liquid) 5 ml PO Q4H PRN PRN Reason: Cough Lorazepam (Lorazepam 1 Mg Tablet) 1 mg PO BID PRN PRN Reason: anxiety/sleep Last Admin: 01/27/21 00:02 Dose: 1 mg Documented by: ARNULFO Losartan Potassium (Losartan Potassium 50 Mg Tablet) 50 mg PO DAILY [facility]; Protocol Last Admin: 01/28/21 08:26 Dose: 50 mg Documented by: MADISON Methylprednisolone Sodium Succinate (Methylprednisolone Sod Succ 40 Mg/Ml Vial) 40 mg IVPUSH Q12H [facility] Last Admin: 01/28/21 09:46 Dose: 40 mg Documented by: MADISON Metoprolol Succinate (Metoprolol Succinate Er 25 Mg Tab.Er.24h) 25 mg PO DAILY [facility]; Protocol Last Admin: 01/28/21 08:26 Dose: 25 mg Documented by: MADISON Sodium Chloride (0.9 % Sodium Chloride Flush 3 Ml Syringe) 3 ml IVFLUSH QSHIFT [facility] Last Admin: 01/28/21 09:46 Dose: 3 ml Documented by: MADISON Zinc Sulfate (Zinc Sulfate 220 Mg Capsule) 220 mg PO DAILY [facility] Last Admin: 01/28/21 08:26 Dose: 220 mg Documented by: MADISON Labs CBC & Chem 7: 01/28/21 06:25 01/28/21 06:25 Labs: Laboratory Results - last 24 hr 01/28/21 01/28/21 06:25 06:25 MCV 88.1 MCH 29.4 MCHC 33.4 RDW 13.2 Plt Count 479 H D MPV 9.5 Absolute Nucleated RBC 0.000 Nucleated RBC % (auto) 0.0 Anion Gap 16 Estim Creat Clear Calc 56.5 Estimated GFR > 60 Random Glucose 162 H Calcium 8.0 L D Ferritin 502 H C-Reactive Protein 2.93 H Assessment and Plan (1) Acute hypoxemic respiratory failure: Status: Acute (2) COVID-19: Status: Acute (3) Hypoxia: Status: Acute Assessment and Plan: 1. Acute hypoxemic respiratory d/t covid PNA persistent hypoxia, and possible superimposed PNA continue supportive care wean O2 as feasible continue steroid add Pepcid, Zinc--not well validated options but low risk for harm echo 2. HLD: continue statin 3. HTN--Toprololx, Losartan, Norvasc 3. Anxiety:? Continue home anxiety medication DVT prophylaxis:? Lovenox Quality Stroke Does the patient have a stroke diagnosis?: No VTE Prior VTE?: No VTE Risk Level:: Medical - moderate - high VTE Device Contraindication: N/A - Device Ordered VTE Drug Contraindication: N/A - Med Ordered
[2021-01-28] MEDS: Morphine Sulfate 2 MG/ML CARTRIDGE 1 MG IVPUSH (17:26)
[2021-01-28] MEDS: Enoxaparin Sodium 40 MG/0.4 ML SYRINGE SUBCUT (17:27)
[2021-01-28] MEDS: Azithromycin 500 MG TABLET PO (17:27)
[2021-01-28] MEDS: LORazepam 1 MG TABLET PO (21:00)
[2021-01-28] MEDS: guaiFEN/Codeine SF 200/20/10ML 10 ML LIQUID 5 ML PO (21:00)
[2021-01-28] MEDS: Famotidine 20 MG TABLET 40 MG PO (21:00)
[2021-01-29] VITALS (8 sets, daily range): BP systolic 119–162; BP diastolic 55–83; PULSE 55–75; RESP 17–22; TEMP 35.5–36.8; O2SAT 90–100
[2021-01-29] MEDS: Famotidine 20 MG TABLET 40 MG PO ×2 (08:56→20:12)
[2021-01-29] MEDS: Famotidine 20 MG TABLET PO ×2 (08:56→20:12)
[2021-01-29] MEDS: Ezetimibe 10 MG TABLET PO (08:57)
[2021-01-29] MEDS: Zinc Sulfate 220 MG CAPSULE PO (08:57)
[2021-01-29] MEDS: Losartan Potassium 50 MG TABLET PO (08:57)
[2021-01-29] MEDS: Metoprolol Succinate ER 25 MG TAB.ER.24H PO (08:57)
[2021-01-29] MEDS: amLODIPine Besylate 2.5 MG TABLET PO (08:58)
[2021-01-29] MEDS: methylPREDNISolone Sod Succ 40 MG/ML VIAL IVPUSH ×2 (08:59→20:11)
[2021-01-29] MEDS: 0.9 % Sodium Chloride Flush 3 ML SYRINGE IVFLUSH ×3 (08:59→20:12)
[2021-01-29 11:07] LABS: Legionella Ag Urine Not Detected (Not Detected)
[2021-01-29] MEDS: Azithromycin 500 MG TABLET PO (16:48)
[2021-01-29] MEDS: Benzonatate 100 MG CAPSULE PO (16:50)
--- NOTE | 2021-01-29 17:09 | P.PNIM_ITS ---
Subjective Subjective Date of Service: 01/29/21 Interval History: f/u on covid related acute hypoxic resp failure still shob and still requiring high amount of O2 but clinically feels beter Review of Systems no fever no sob Physical Exam Vital Signs: Vital Signs: Last Vital Signs Temp 98.0 F 01/29/21 15:14 Pulse 66 01/29/21 15:14 Resp 20 01/29/21 15:14 BP 119/65 01/29/21 15:14 Pulse Ox 98 01/29/21 15:14 Oxygen Flow Rate 4 01/21/21 10:50 Body Mass Index 26.9 Const: Other: General: AO X 3, no acute distress Resp: black rhonchi CVS: S1,S2,RRR GI: +BS, NT, no distention Skin: No rash Neuro: motor grossly intact Psych: appropriate affect Objective Data Active Medications Amlodipine Besylate (Amlodipine Besylate 2.5 Mg Tablet) 2.5 mg PO DAILY [facility]; Protocol Last Admin: 01/29/21 08:58 Dose: 2.5 mg Documented by: JAKE Azithromycin (Azithromycin 500 Mg Tablet) 500 mg PO Q24H [facility] Last Admin: 01/29/21 16:48 Dose: 500 mg Documented by: JAKE Benzonatate (Benzonatate 100 Mg Capsule) 100 mg PO TID PRN PRN Reason: Cough Last Admin: 01/29/21 16:50 Dose: 100 mg Documented by: JAKE Ezetimibe (Ezetimibe 10 Mg Tablet) 10 mg PO DAILY [facility] Last Admin: 01/29/21 08:57 Dose: 10 mg Documented by: JAKE Enoxaparin Sodium (Enoxaparin Sodium 40 Mg/0.4 Ml Syringe) 40 mg SUBCUT Q24H [facility] Last Admin: 01/28/21 17:27 Dose: 40 mg Documented by: MADISON Famotidine (Famotidine 20 Mg Tablet) 20 mg PO BID [facility] Last Admin: 01/29/21 08:56 Dose: 20 mg Documented by: JAKE Famotidine (Famotidine 20 Mg Tablet) 40 mg PO BID [facility] Last Admin: 01/29/21 08:56 Dose: 40 mg Documented by: JAKE Guaifenesin/Codeine Phosphate (Guaifen/Codeine Sf 200/20/10ml 10 Ml Liquid) 5 ml PO Q4H PRN PRN Reason: Cough Last Admin: 01/28/21 21:00 Dose: 5 ml Documented by: NOELLE Lorazepam (Lorazepam 1 Mg Tablet) 1 mg PO BID PRN PRN Reason: anxiety/sleep Last Admin: 01/28/21 21:00 Dose: 1 mg Documented by: NOELLE Losartan Potassium (Losartan Potassium 50 Mg Tablet) 50 mg PO DAILY [facility]; Protocol Last Admin: 01/29/21 08:57 Dose: 50 mg Documented by: JAKE Methylprednisolone Sodium Succinate (Methylprednisolone Sod Succ 40 Mg/Ml Vial) 40 mg IVPUSH Q12H [facility] Last Admin: 01/29/21 08:59 Dose: 40 mg Documented by: JAKE Metoprolol Succinate (Metoprolol Succinate Er 25 Mg Tab.Er.24h) 25 mg PO DAILY [facility]; Protocol Last Admin: 01/29/21 08:57 Dose: 25 mg Documented by: JAKE Morphine Sulfate (Morphine Sulfate 2 Mg/Ml Cartridge) 1 mg IVPUSH Q4H PRN; Protocol PRN Reason: Pain, Severe (Pain Scale 7-10) Last Admin: 01/28/21 17:26 Dose: 1 mg Documented by: BROAnderson Sodium Chloride (0.9 % Sodium Chloride Flush 3 Ml Syringe) 3 ml IVFLUSH QSHIFT [facility] Last Admin: 01/29/21 16:48 Dose: 3 ml Documented by: JAKE Zinc Sulfate (Zinc Sulfate 220 Mg Capsule) 220 mg PO DAILY [facility] Last Admin: 01/29/21 08:57 Dose: 220 mg Documented by: JAKE Labs CBC & Chem 7: 01/28/21 06:25 01/28/21 06:25 Labs: Laboratory Results - last 24 hr 01/22/21 19:30 Ur L.pneumophila Ag Not Detected Assessment and Plan (1) Acute hypoxemic respiratory failure: Status: Acute (2) COVID-19: Status: Acute (3) Hypoxia: Status: Acute Assessment and Plan: 1. Acute hypoxemic respiratory d/t covid PNA persistent hypoxia, and possible superimposed PNA continue supportive care wean O2 as feasible continue steroid add Pepcid, Zinc--not well validated options but low risk for harm echo pending 2. HLD: continue statin 3. HTN--Toprololx, Losartan, Norvasc 3. Anxiety:? Continue home anxiety medication DVT prophylaxis:? Lovenox Quality Stroke Does the patient have a stroke diagnosis?: No VTE Prior VTE?: No VTE Risk Level:: Medical - moderate - high VTE Device Contraindication: N/A - Device Ordered VTE Drug Contraindication: N/A - Med Ordered
[2021-01-29] MEDS: guaiFEN/Codeine SF 200/20/10ML 10 ML LIQUID 5 ML PO (20:11)
[2021-01-29] MEDS: LORazepam 1 MG TABLET PO (21:25)
[2021-01-30 03:11] VITALS: BP 123/50; PULSE 72; RESP 20; TEMP 36.2; O2SAT 99
--- NOTE | 2021-01-30 06:41 | PC.NURSE ---
Patient's O2 sats sustaining around 85%. Pt assessed, HFNC on. Respiratory called and at bedside. HFNC increased to 70%
[2021-01-30 08:00] VITALS: BP 139/90; PULSE 87; RESP 18; TEMP 36.4; O2SAT 92
[2021-01-30] MEDS: 0.9 % Sodium Chloride Flush 3 ML SYRINGE IVFLUSH ×3 (08:45→21:20)
[2021-01-30] MEDS: Famotidine 20 MG TABLET 40 MG PO ×2 (08:45→21:20)
[2021-01-30] MEDS: Losartan Potassium 50 MG TABLET PO (08:46)
[2021-01-30] MEDS: Ezetimibe 10 MG TABLET PO (08:46)
[2021-01-30] MEDS: Metoprolol Succinate ER 25 MG TAB.ER.24H PO (08:46)
[2021-01-30] MEDS: LORazepam 1 MG TABLET PO ×2 (08:46→21:20)
[2021-01-30] MEDS: Benzonatate 100 MG CAPSULE PO ×2 (08:46→18:23)
[2021-01-30] MEDS: amLODIPine Besylate 2.5 MG TABLET PO (08:46)
[2021-01-30] MEDS: Famotidine 20 MG TABLET PO ×2 (08:47→21:20)
[2021-01-30] MEDS: methylPREDNISolone Sod Succ 40 MG/ML VIAL IVPUSH ×2 (08:47→21:20)
[2021-01-30] MEDS: Zinc Sulfate 220 MG CAPSULE PO (08:47)
[2021-01-30 11:19] VITALS: BP 128/59; PULSE 82; RESP 22; TEMP 37.3; O2SAT 97
[2021-01-30] MEDS: guaiFEN/Codeine SF 200/20/10ML 10 ML LIQUID 5 ML PO ×2 (12:18→18:23)
[2021-01-30 15:14] VITALS: BP 115/48; PULSE 80; RESP 20; TEMP 36.6; O2SAT 100
--- NOTE | 2021-01-30 15:56 | HO.PM.IMPN ---
Subjective Subjective Date of Service: 01/30/21 Interval History: patient seen and examined at bedside. She is complaining of improving chest pain with cough and deep inspiration, she is also reporting improvement in her shortness of breath. She has no abdominal pain, no nausea or vomiting, no diarrhea constipation, no urinary symptoms and no lower extremity edema. She would like to walk around, has been eating well. Review of Systems Review of Systems: Yes all other systems are reviewed and are negative Physical Exam Vital Signs: Vital Signs: Last Vital Signs Temp 97.8 F 01/30/21 15:14 Pulse 80 01/30/21 15:14 Resp 20 01/30/21 15:14 BP 115/48 L 01/30/21 15:14 Pulse Ox 100 01/30/21 15:14 Oxygen Flow Rate 4 01/21/21 10:50 Body Mass Index 26.9 Const: General: cooperative and no acute distress Orientation/consciousness: patient oriented x3 Resp: Other: Crackles bilaterally Effort & Inspection: normal respiratory effort Cardio: Rate: regular rate Rhythm: regular rhythm GI: Palpation (GI): Soft to palpation Auscultation: normal bowel sounds Neuro: General: patient oriented x3 Extrem: General: Yes normal to inspection and Yes no pedal edema Objective Data Active Medications Amlodipine Besylate (Amlodipine Besylate 2.5 Mg Tablet) 2.5 mg PO DAILY [facility]; Protocol Last Admin: 01/30/21 08:46 Dose: 2.5 mg Documented by: SWETHA Azithromycin (Azithromycin 500 Mg Tablet) 500 mg PO Q24H [facility] Last Admin: 01/29/21 16:48 Dose: 500 mg Documented by: JAKE Benzonatate (Benzonatate 100 Mg Capsule) 100 mg PO TID PRN PRN Reason: Cough Last Admin: 01/30/21 08:46 Dose: 100 mg Documented by: SWETHA Ezetimibe (Ezetimibe 10 Mg Tablet) 10 mg PO DAILY [facility] Last Admin: 01/30/21 08:46 Dose: 10 mg Documented by: SWETHA Enoxaparin Sodium (Enoxaparin Sodium 40 Mg/0.4 Ml Syringe) 40 mg SUBCUT Q24H [facility] Last Admin: 01/29/21 17:11 Dose: Not Given Documented by: JAKE Non-Admin Reason: Patient Refused Famotidine (Famotidine 20 Mg Tablet) 20 mg PO BID [facility] Last Admin: 01/30/21 08:47 Dose: 20 mg Documented by: SWETHA Famotidine (Famotidine 20 Mg Tablet) 40 mg PO BID [facility] Last Admin: 01/30/21 08:45 Dose: 40 mg Documented by: SWETHA Guaifenesin/Codeine Phosphate (Guaifen/Codeine Sf 200/20/10ml 10 Ml Liquid) 5 ml PO Q4H PRN PRN Reason: Cough Last Admin: 01/30/21 12:18 Dose: 5 ml Documented by: SWETHA Lorazepam (Lorazepam 1 Mg Tablet) 1 mg PO BID PRN PRN Reason: anxiety/sleep Last Admin: 01/30/21 08:46 Dose: 1 mg Documented by: SWETHA Losartan Potassium (Losartan Potassium 50 Mg Tablet) 50 mg PO DAILY [facility]; Protocol Last Admin: 01/30/21 08:46 Dose: 50 mg Documented by: SWETHA Methylprednisolone Sodium Succinate (Methylprednisolone Sod Succ 40 Mg/Ml Vial) 40 mg IVPUSH Q12H [facility] Last Admin: 01/30/21 08:47 Dose: 40 mg Documented by: SWETHA Metoprolol Succinate (Metoprolol Succinate Er 25 Mg Tab.Er.24h) 25 mg PO DAILY [facility]; Protocol Last Admin: 01/30/21 08:46 Dose: 25 mg Documented by: SWTEHA Morphine Sulfate (Morphine Sulfate 2 Mg/Ml Cartridge) 1 mg IVPUSH Q4H PRN; Protocol PRN Reason: Pain, Severe (Pain Scale 7-10) Last Admin: 01/28/21 17:26 Dose: 1 mg Documented by: MADISON Sodium Chloride (0.9 % Sodium Chloride Flush 3 Ml Syringe) 3 ml IVFLUSH QSHIFT [facility] Last Admin: 01/30/21 08:45 Dose: 3 ml Documented by: SWETHA Zinc Sulfate (Zinc Sulfate 220 Mg Capsule) 220 mg PO DAILY [facility] Last Admin: 01/30/21 08:47 Dose: 220 mg Documented by: SWETHA Labs CBC & Chem 7: 01/28/21 06:25 01/28/21 06:25 Assessment and Plan (1) Acute hypoxemic respiratory failure: Status: Acute (2) COVID-19: Status: Acute Assessment and Plan: 75-year-old female admitted to the hospital for acute hypoxic respiratory failure secondary to pneumonia #. Acute hypoxemic respiratory d/t covid PNA - hypoxia, and possible superimposed PNA - continue supportive care, cough suppressants - wean O2 as tolerated - continue steroid - continue Pepcid, Zinc--not well validated? options but low risk for harm - echo pending # chest pain - pleuretic worse with cough and deep inspiration - most likely due to cough - had a CT angiogram done on 01/21 which was negative for VTE - reports improvement in the chest pain - will monitor, if she continues to have this chest pain, consider repeating CT angiogram #. HLD: continue statin #. HTN--Toprololx, Losartan, Norvasc #. Anxiety:? Continue home anxiety medication DVT prophylaxis:? Lovenox Quality Stroke Does the patient have a stroke diagnosis?: No VTE Prior VTE?: No VTE Risk Level:: Medical - moderate - high VTE Device Contraindication: N/A - Device Ordered VTE Drug Contraindication: N/A - Med Ordered
[2021-01-30] MEDS: Azithromycin 500 MG TABLET PO (18:23)
[2021-01-30 19:04] VITALS: BP 103/52; PULSE 59; RESP 20; TEMP 36.6; O2SAT 100
[2021-01-30 23:14] VITALS: BP 119/43; PULSE 66; RESP 20; TEMP 36.1; O2SAT 99
[2021-01-31] VITALS (9 sets, daily range): BP systolic 99–135; BP diastolic 43–60; PULSE 59–90; RESP 20–22; TEMP 36.2–37.1; O2SAT 90–99
[2021-01-31] MEDS: Morphine Sulfate 2 MG/ML CARTRIDGE 1 MG IVPUSH (04:09)
[2021-01-31] MEDS: Famotidine 20 MG TABLET 40 MG PO ×2 (09:44→20:48)
[2021-01-31] MEDS: LORazepam 1 MG TABLET PO ×2 (09:44→20:48)
[2021-01-31] MEDS: Metoprolol Succinate ER 25 MG TAB.ER.24H PO (09:44)
[2021-01-31] MEDS: Zinc Sulfate 220 MG CAPSULE PO (09:44)
[2021-01-31] MEDS: 0.9 % Sodium Chloride Flush 3 ML SYRINGE IVFLUSH ×3 (09:45→20:50)
[2021-01-31] MEDS: Losartan Potassium 50 MG TABLET PO (09:45)
[2021-01-31] MEDS: amLODIPine Besylate 2.5 MG TABLET PO (09:45)
[2021-01-31] MEDS: Ezetimibe 10 MG TABLET PO (09:45)
[2021-01-31] MEDS: methylPREDNISolone Sod Succ 40 MG/ML VIAL IVPUSH (09:46)
--- NOTE | 2021-01-31 11:31 | ECG_ITS ---
Test Reason : CHEST PAIN Blood Pressure : / mmHG Vent. Rate : 064 BPM Atrial Rate : 064 BPM P-R Int : 136 ms QRS Dur : 074 ms QT Int : 386 ms P-R-T Axes : 025 -17 -29 degrees QTc Int : 398 ms Normal sinus rhythm Voltage criteria for left ventricular hypertrophy Nonspecific ST and T wave abnormality Abnormal ECG Heart rate has decreased Referred By: Stefani Valdivia Electronically Signed By:JOVANA PHAM MD
--- NOTE | 2021-01-31 11:35 | P.PNIM_ITS ---
Subjective Subjective Date of Service: 01/31/21 Interval History: seen and examined this morning follow up for covid pneumonia/respiratory failure reporting chest pain Review of Systems Review of Systems: Yes all other systems are reviewed and are negative Constitutional Constitutional: Denies chills and Denies fever(s) Respiratory Respiratory: Denies cough Gastrointestinal Gastrointestinal: Denies abdominal pain Physical Exam Vital Signs: Vital Signs: Last Vital Signs Temp 98.7 F 01/31/21 11:28 Pulse 86 01/31/21 11:28 Resp 20 01/31/21 11:28 BP 110/60 01/31/21 11:28 Pulse Ox 90 L 01/31/21 11:28 Oxygen Flow Rate 4 01/21/21 10:50 Body Mass Index 26.9 Const: General: comfortable, alert and awake Nutritional Appearance: well nourished Orientation/consciousness: patient oriented x3 HENMT: Head: Yes normocephalic and Yes atraumatic Eyes: Sclerae: sclerae normal Resp: Other: becomes short of breath after talking for a minute or two Effort & Inspection: tachypneic Cardio: Rate: regular rate Rhythm: regular rhythm GI: Palpation (GI): Soft to palpation and nontender Neuro: General: patient oriented x3 Cranial nerves: Yes CN's II-XII intact bilaterally and Yes Bilaterally intact EOM present Extrem: Other: no leg edema Objective Data Active Medications Amlodipine Besylate (Amlodipine Besylate 2.5 Mg Tablet) 2.5 mg PO DAILY [facility]; Protocol Last Admin: 01/31/21 09:45 Dose: 2.5 mg Documented by: JAN Azithromycin (Azithromycin 500 Mg Tablet) 500 mg PO Q24H [facility] Last Admin: 01/30/21 18:23 Dose: 500 mg Documented by: SWETHA Benzonatate (Benzonatate 100 Mg Capsule) 100 mg PO TID PRN PRN Reason: Cough Last Admin: 01/30/21 18:23 Dose: 100 mg Documented by: SWETHA Ezetimibe (Ezetimibe 10 Mg Tablet) 10 mg PO DAILY [facility] Last Admin: 01/31/21 09:45 Dose: 10 mg Documented by: JAN Enoxaparin Sodium (Enoxaparin Sodium 40 Mg/0.4 Ml Syringe) 40 mg SUBCUT Q24H [facility] Last Admin: 01/30/21 18:27 Dose: Not Given Documented by: SWETHA Non-Admin Reason: Patient Refused Famotidine (Famotidine 20 Mg Tablet) 20 mg PO BID [facility] Last Admin: 01/31/21 09:41 Dose: Not Given Documented by: JAN Non-Admin Reason: duplicate Famotidine (Famotidine 20 Mg Tablet) 40 mg PO BID [facility] Last Admin: 01/31/21 09:44 Dose: 40 mg Documented by: JAN Lorazepam (Lorazepam 1 Mg Tablet) 1 mg PO BID PRN PRN Reason: anxiety/sleep Last Admin: 01/31/21 09:44 Dose: 1 mg Documented by: JAN Losartan Potassium (Losartan Potassium 50 Mg Tablet) 50 mg PO DAILY [facility]; Protocol Last Admin: 01/31/21 09:45 Dose: 50 mg Documented by: JAN Methylprednisolone Sodium Succinate (Methylprednisolone Sod Succ 40 Mg/Ml Vial) 40 mg IVPUSH Q12H [facility] Last Admin: 01/31/21 09:46 Dose: 40 mg Documented by: JAN Metoprolol Succinate (Metoprolol Succinate Er 25 Mg Tab.Er.24h) 25 mg PO DAILY [facility]; Protocol Last Admin: 01/31/21 09:44 Dose: 25 mg Documented by: JAN Morphine Sulfate (Morphine Sulfate 2 Mg/Ml Cartridge) 1 mg IVPUSH Q4H PRN; Protocol PRN Reason: Pain, Severe (Pain Scale 7-10) Last Admin: 01/31/21 04:09 Dose: 1 mg Documented by: ARNULFO Sodium Chloride (0.9 % Sodium Chloride Flush 3 Ml Syringe) 3 ml IVFLUSH QSHIFT [facility] Last Admin: 01/31/21 09:45 Dose: 3 ml Documented by: JAN Zinc Sulfate (Zinc Sulfate 220 Mg Capsule) 220 mg PO DAILY [facility] Last Admin: 01/31/21 09:44 Dose: 220 mg Documented by: JAN Labs CBC & Chem 7: 01/28/21 06:25 01/28/21 06:25 Assessment and Plan (1) Acute hypoxemic respiratory failure: Status: Acute (2) COVID-19: Status: Acute Assessment and Plan: 75-year-old female admitted to the hospital for acute hypoxic respiratory failure secondary to pneumonia Acute hypoxemic respiratory d/t covid PNA still requiring 15L NC s/p 7 days Azithromycin - continue supportive care, cough suppressants - wean O2 as tolerated - IV solumedrol, day 10 - continue Pepcid, Zinc--not well validated?options but low risk for harm - echo pending chest pain CTA from 01/21 which was negative for PE trops on admission flat -repeat trop, EKG, ddimer -consider repeat CTA -echo pending HLD continue zetia HTN BP controlled Continue Toprololx, Losartan, Norvasc Anxiety:? Continue home anxiety medication DVT prophylaxis:? Lovenox Attending: Dr. Lei Quality Stroke Does the patient have a stroke diagnosis?: No VTE Prior VTE?: No VTE Risk Level:: Medical - moderate - high VTE Device Contraindication: N/A - Device Ordered VTE Drug Contraindication: N/A - Med Ordered
[2021-01-31 12:55] LABS: D Dimer High Sensitivity 356 NG/ML
[2021-01-31 12:57] LABS: Anion Gap 17 (12-20); Blood Urea Nitrogen 29 mg/dL (9-16); Calcium 8.2 mg/dL (8.4-10.2); Carbon Dioxide 23 mmol/L (22-29); Chloride 99 mmol/L (96-108); Creatinine Clr Calc Pharmacy 54.1; Estimated Glomerular Filt Rate > 60; Glucose Random 247 mg/dL (60-115); Potassium 4.9 mmol/L (3.3-5.1); Sodium 134 mmol/L (135-145)
[2021-01-31 13:03] LABS: Troponin-I High Sensitivity 4.6 ng/L (<3.5-17.0)
--- NOTE | 2021-01-31 15:00 | CA_ITS ---
Transthoracic Echocardiogram Patient (Last, First, Middle): Nohemy Mullins, Gender: Female Date of : 1945 Age: 75 Procedure Date: 01/31/2021 Procedure Type: Transthoracic Echocardiogram Location: [facility] Height: 149.86 cm Weight: 58.97 kg BSA: 1.54 m2 Heart Rate: bpm Agricultural Adviser: KYA Mcdonough MD: Jak Jimenez MD Front Load Trash Truck Driver: Anoop Hanson MD Symptoms: hypoxia /elevated troponin Study Quality: Fair ECG Rhythm: Sinus Conclusions: - 1. Normal LV systolic function with grade 1 diastolic dysfunction 2. Normal cardiac valvular Doppler 3. Normal RV systolic pressure 4. No gross pericardial effusion Findings Left Ventricle Normal left ventricular size, thickness, and systolic function. The visually estimated ejection fraction is between 60-65%. Spectral Doppler is indicative of an impaired relaxation filling pattern. E/E prime ratio is <8, consistent with normal filling pressures. Evidence suggests grade I (mild) diastolic dysfunction. Right Ventricle Normal right ventricular cavity size and systolic function. Atria Both atria are normal in size. There is lipomatous hypertrophy of the interatrial septum. There is no evidence of interatrial shunt. Aortic Valve Normal aortic valve structure and function. There is no aortic valve stenosis. There is no aortic valve regurgitation. Mitral Valve Normal mitral valve structure and function. There is trace mitral valve regurgitation. There is no mitral valve stenosis. Pulmonic Valve The pulmonic valve is likely normal. There is trace to mild pulmonic valve regurgitation. Tricuspid Valve Normal tricuspid valve structure. There is mild tricuspid valve regurgitation. The right ventricular systolic pressure is normal. The right ventricular systolic pressure is 33 mmHg. Normal right atrial pressure. There is no evidence of pulmonary hypertension. Great Vessels All visible segments of the aorta are normal in size. The pulmonary artery was not well visualized. Venous The inferior vena cava is normal in size and collapses greater than 50% with inspiration. Pericardium/Pleural There is no evidence of pericardial effusion. Prior Study Comparison No prior study available for comparison. Measurements 2D Linear Measurements IVSd: 1.04 0.6-0.9/0.6-1.0 cm LVIDd: 4.01 3.9-5.3/4.2-5.9 cm LVIDd Index: 2.60 2.4-3.2/2.2-3.1 cm/m2 LVIDs: 2.38 2.0-3.6 cm LVPWd: 0.97 0.7-1.1 cm Ao Root: 2.90 2.1-3.5 cm LA Diam: 3.90 2.7-3.8/3.0-4.0 cm LAIDs Index: 2.53 1.5-2.3 cm/m2 LV Mass: 159.72 67-162/88-224 g LV Mass Index: 103.71 43-95/49-115 g/m2 LVOT Diam: 1.90 3.0+(-)1.3 cm Mitral Valve MV Pk E: 1.02 MV PK A: 1.25 MV Decel Time: 222.00 E/A: 0.80 E'Lateral: 8.92 E'Medial: 6.53 E/E' Med: 15.60 E/E' Lat: 11.40 PHT: 65.00 MVA PHT: 3.38 Decel Kidder: 4.60 Aortic Valve AoV Pk Milton: 1.52 AoV Mn Milton: 0.95 AoV VTI: 0.29 AoV Pk Grad: 9.00 Aov Mn Grad: 4.00 JAYDEN Cont.VTI: 2.27 LVOT LVOT Pk Milton: 1.08 LVOT Mn Milton: 0.68 LVOT VTI: 0.23 LVOT Pk Grad: 5.00 LVOT Mn Grad: 2.00 LVOT Diam: 1.90 LVOT Area: 2.84 Diastolic Function MV Pk E: 1.02 MV Pk A: 1.25 E/A: 0.80 E'Medial: 6.53 E/E' Med: 15.60 E' Laterial: 8.92 E/E' Lat: 11.40 Right Ventricle TAPSE (mm): 2.30 TVS' Milton: 11.60 Tricuspid Valve TR Pk Milton: 2.73 TR Pk Grad: 30.00 RA Press: 3.00 RVSP: 33.00 Great Vessels Aorta Ao Root-2D: 2.90 2.0-3.7 cm Ao Asc: 2.90 2.1-3.4 cm Updated in Other Vendor System with Status of Final Anoop Hanson MD electronically signed on 01/31/2021 2:08:50 PM with status of Final
[2021-01-31] MEDS: Enoxaparin Sodium 40 MG/0.4 ML SYRINGE SUBCUT (16:16)
[2021-02-01] VITALS (7 sets, daily range): BP systolic 99–132; BP diastolic 41–63; PULSE 71–98; RESP 18–30; TEMP 36.3–36.7; O2SAT 90–99
[2021-02-01] MEDS: Morphine Sulfate 2 MG/ML CARTRIDGE 1 MG IVPUSH ×2 (06:32→13:58)
[2021-02-01] MEDS: Ezetimibe 10 MG TABLET PO (08:48)
[2021-02-01] MEDS: Zinc Sulfate 220 MG CAPSULE PO (08:48)
[2021-02-01] MEDS: Losartan Potassium 50 MG TABLET PO (08:48)
[2021-02-01] MEDS: Metoprolol Succinate ER 25 MG TAB.ER.24H PO (08:48)
[2021-02-01] MEDS: amLODIPine Besylate 2.5 MG TABLET PO (08:48)
[2021-02-01] MEDS: Famotidine 20 MG TABLET 40 MG PO ×2 (08:48→20:19)
[2021-02-01] MEDS: 0.9 % Sodium Chloride Flush 3 ML SYRINGE IVFLUSH ×3 (08:49→20:21)
[2021-02-01] MEDS: predniSONE 20 MG TABLET 40 MG PO (08:49)
--- NOTE | 2021-02-01 14:27 | P.PNIM_ITS ---
Subjective Subjective Date of Service: 02/01/21 Interval History: late entry note from 02/01/21 f/u on covid pna, acute hypoxia, peristent hypoxia Review of Systems no fever, + sob Physical Exam Vital Signs: Vital Signs: Last Vital Signs 02/01/ were reviewed in Const: Other: General: AO X 3, no acute distress Resp:? Clear lungs bilaterally, no accessory muscle use, she is toxin full sentences. CVS: S1,S2,RRR GI: +BS, NT, no distention Skin: No rash Neuro:? motor grossly intact Psych: appropriate affect Objective Data Active Medications Amlodipine Besylate (Amlodipine Besylate 2.5 Mg Tablet) 2.5 mg PO DAILY [facility]; Protocol Last Admin: 02/02/21 10:11 Dose: Not Given Documented by: HALINA Non-Admin Reason: Decreased Blood Pressure Benzonatate (Benzonatate 100 Mg Capsule) 100 mg PO TID PRN PRN Reason: Cough Last Admin: 02/02/21 09:59 Dose: 100 mg Documented by: HALINA Ezetimibe (Ezetimibe 10 Mg Tablet) 10 mg PO DAILY [facility] Last Admin: 02/02/21 09:57 Dose: 10 mg Documented by: HALINA Enoxaparin Sodium (Enoxaparin Sodium 40 Mg/0.4 Ml Syringe) 40 mg SUBCUT Q24H [facility] Last Admin: 02/01/21 17:00 Dose: 40 mg Documented by: HALINA Famotidine (Famotidine 20 Mg Tablet) 40 mg PO BID [facility] Last Admin: 02/02/21 09:59 Dose: 40 mg Documented by: HALINA Guaifenesin/Codeine Phosphate (Guaifen/Codeine Sf 200/20/10ml 10 Ml Liquid) 5 ml PO Q6H PRN PRN Reason: Cough Last Admin: 02/02/21 09:59 Dose: 5 ml Documented by: HALINA Losartan Potassium (Losartan Potassium 50 Mg Tablet) 50 mg PO DAILY [facility]; Protocol Last Admin: 02/02/21 09:57 Dose: 50 mg Documented by: HALINA Metoprolol Succinate (Metoprolol Succinate Er 25 Mg Tab.Er.24h) 25 mg PO DAILY [facility]; Protocol Last Admin: 02/02/21 10:00 Dose: 25 mg Documented by: HALINA Morphine Sulfate (Morphine Sulfate 2 Mg/Ml Cartridge) 1 mg IVPUSH Q4H PRN; Protocol PRN Reason: Pain, Severe (Pain Scale 7-10) Last Admin: 02/01/21 13:58 Dose: 1 mg Documented by: HALINA Prednisone (Prednisone 20 Mg Tablet) 40 mg PO DAILY [facility] Last Admin: 02/02/21 09:57 Dose: 40 mg Documented by: HALINA Sodium Chloride (0.9 % Sodium Chloride Flush 3 Ml Syringe) 3 ml IVFLUSH QSHIFT [facility] Last Admin: 02/02/21 09:57 Dose: 3 ml Documented by: HALINA Zinc Sulfate (Zinc Sulfate 220 Mg Capsule) 220 mg PO DAILY [facility] Last Admin: 02/02/21 09:58 Dose: 220 mg Documented by: HALINA Labs CBC & Chem 7: 01/28/21 06:25 01/31/21 12:34 Assessment and Plan (1) Acute hypoxemic respiratory failure: Status: Acute (2) COVID-19: Status: Acute Assessment and Plan: 75/F with covid related hypoxic resp failure 1. Acute hypoxemic respiratory d/t covid PNA persisten hypoxia, continue supportive care wean O2 as feasible continue steroid, prednisone Pepcid, Zinc--not well validated options but low risk for harm echo with normal EF, 2. HLD: continue statin 3. HTN--Toprololx, Losartan, Norvasc 3. Anxiety:? Continue home anxiety medication DVT prophylaxis:? Lovenox Discussed with patient and over the phone, Late entry note from 02/01/21 Quality Stroke Does the patient have a stroke diagnosis?: No VTE Prior VTE?: No VTE Risk Level:: Medical - moderate - high VTE Device Contraindication: N/A - Device Ordered VTE Drug Contraindication: N/A - Med Ordered
[2021-02-01] MEDS: Enoxaparin Sodium 40 MG/0.4 ML SYRINGE SUBCUT (17:00)
--- NOTE | 2021-02-01 17:58 | PC.NURSE ---
02 12L via [place] cath Voiding qs in commode. Cont to c/o some chest pain with deep breaths. Morphine 1mg given with some eff.
[2021-02-01] MEDS: guaiFEN/Codeine SF 200/20/10ML 10 ML LIQUID 5 ML PO (20:22)
[2021-02-02 03:33] VITALS: BP 103/41; PULSE 84; RESP 20; TEMP 36.6; O2SAT 99
[2021-02-02 08:00] VITALS: BP 111/46; PULSE 97; RESP 18; TEMP 37.2; O2SAT 93
[2021-02-02] MEDS: 0.9 % Sodium Chloride Flush 3 ML SYRINGE IVFLUSH ×3 (09:57→20:26)
[2021-02-02] MEDS: Ezetimibe 10 MG TABLET PO (09:57)
[2021-02-02] MEDS: Losartan Potassium 50 MG TABLET PO (09:57)
[2021-02-02] MEDS: predniSONE 20 MG TABLET 40 MG PO (09:57)
[2021-02-02] MEDS: Zinc Sulfate 220 MG CAPSULE PO (09:58)
[2021-02-02] MEDS: Famotidine 20 MG TABLET 40 MG PO ×2 (09:59→20:25)
[2021-02-02] MEDS: Benzonatate 100 MG CAPSULE PO ×2 (09:59→20:32)
[2021-02-02] MEDS: guaiFEN/Codeine SF 200/20/10ML 10 ML LIQUID 5 ML PO ×2 (09:59→17:47)
[2021-02-02] MEDS: Metoprolol Succinate ER 25 MG TAB.ER.24H PO (10:00)
--- NOTE | 2021-02-02 10:00 | P.PNIM_ITS ---
Subjective Subjective Date of Service: 02/02/21 Interval History: f/u on covid related acute hypoxic resp failure still shob and still requiring high amount of O2, I attempted to reduce oxygen this morning and redo resulted in significant hypoxia and has to be put back on a higher amount of oxygen. She feel comfortable otherwise clinically. Review of Systems no fever no sob Physical Exam Vital Signs: Vital Signs: Last Vital Signs Temp 98.9 F 02/02/21 08:00 Pulse 97 02/02/21 08:00 Resp 18 02/02/21 08:00 BP 111/46 L 02/02/21 08:00 Pulse Ox 93 02/02/21 08:00 Oxygen Flow Rate 4 01/21/21 10:50 Body Mass Index 26.9 Const: Other: General: AO X 3, no acute distress Resp: Clear lungs bilaterally, no accessory muscle use, she is toxin full sentences. CVS: S1,S2,RRR GI: +BS, NT, no distention Skin: No rash Neuro: motor grossly intact Psych: appropriate affect Objective Data Active Medications Amlodipine Besylate (Amlodipine Besylate 2.5 Mg Tablet) 2.5 mg PO DAILY [facility]; Protocol Last Admin: 02/01/21 08:48 Dose: 2.5 mg Documented by: HALINA Benzonatate (Benzonatate 100 Mg Capsule) 100 mg PO TID PRN PRN Reason: Cough Last Admin: 02/02/21 09:59 Dose: 100 mg Documented by: HALINA Ezetimibe (Ezetimibe 10 Mg Tablet) 10 mg PO DAILY [facility] Last Admin: 02/02/21 09:57 Dose: 10 mg Documented by: HALINA Enoxaparin Sodium (Enoxaparin Sodium 40 Mg/0.4 Ml Syringe) 40 mg SUBCUT Q24H [facility] Last Admin: 02/01/21 17:00 Dose: 40 mg Documented by: HALINA Famotidine (Famotidine 20 Mg Tablet) 40 mg PO BID [facility] Last Admin: 02/02/21 09:59 Dose: 40 mg Documented by: HALINA Guaifenesin/Codeine Phosphate (Guaifen/Codeine Sf 200/20/10ml 10 Ml Liquid) 5 ml PO Q6H PRN PRN Reason: Cough Last Admin: 02/02/21 09:59 Dose: 5 ml Documented by: HALINA Losartan Potassium (Losartan Potassium 50 Mg Tablet) 50 mg PO DAILY [facility]; Protocol Last Admin: 02/02/21 09:57 Dose: 50 mg Documented by: HALINA Metoprolol Succinate (Metoprolol Succinate Er 25 Mg Tab.Er.24h) 25 mg PO DAILY [facility]; Protocol Last Admin: 02/01/21 08:48 Dose: 25 mg Documented by: HALINA Morphine Sulfate (Morphine Sulfate 2 Mg/Ml Cartridge) 1 mg IVPUSH Q4H PRN; Protocol PRN Reason: Pain, Severe (Pain Scale 7-10) Last Admin: 02/01/21 13:58 Dose: 1 mg Documented by: HALINA Prednisone (Prednisone 20 Mg Tablet) 40 mg PO DAILY [facility] Last Admin: 02/02/21 09:57 Dose: 40 mg Documented by: HALINA Sodium Chloride (0.9 % Sodium Chloride Flush 3 Ml Syringe) 3 ml IVFLUSH QSHIFT [facility] Last Admin: 02/02/21 09:57 Dose: 3 ml Documented by: HALINA Zinc Sulfate (Zinc Sulfate 220 Mg Capsule) 220 mg PO DAILY [facility] Last Admin: 02/02/21 09:58 Dose: 220 mg Documented by: HALINA Labs CBC & Chem 7: 01/28/21 06:25 01/31/21 12:34 Assessment and Plan (1) Acute hypoxemic respiratory failure: Status: Acute (2) COVID-19: Status: Acute Assessment and Plan: 75/F with covid related hypoxic resp failure 1. Acute hypoxemic respiratory d/t covid PNA persisten hypoxi continue supportive care wean O2 as feasible continue steroid, prednisone 40 Pepcid, Zinc--not well validated options but low risk for harm echo with normal EF, 2. HLD: continue statin 3. HTN--Toprololx, Losartan, Norvasc 3. Anxiety:? Continue home anxiety medication DVT prophylaxis:? Lovenox Quality Stroke Does the patient have a stroke diagnosis?: No VTE Prior VTE?: No VTE Risk Level:: Medical - moderate - high VTE Device Contraindication: N/A - Device Ordered VTE Drug Contraindication: N/A - Med Ordered
[2021-02-02 11:55] VITALS: BP 99/60; PULSE 82; RESP 18; TEMP 36.5; O2SAT 98
[2021-02-02 13:25] VITALS: O2SAT 96
[2021-02-02 15:53] VITALS: BP 135/61; PULSE 81; RESP 18; TEMP 36.1; O2SAT 97
[2021-02-02] MEDS: Enoxaparin Sodium 40 MG/0.4 ML SYRINGE SUBCUT (17:43)
[2021-02-02 19:51] VITALS: BP 105/51; PULSE 74; RESP 17; TEMP 36.3; O2SAT 95
[2021-02-02] MEDS: Morphine Sulfate 2 MG/ML CARTRIDGE 1 MG IVPUSH (20:32)
[2021-02-02] MEDS: HYDROmorphone HCl 0.5 MG/0.5 ML SYRINGE IVPUSH (23:47)
[2021-02-02] MEDS: Melatonin 3 MG TABLET 6 MG PO (23:47)
[2021-02-03] VITALS (9 sets, daily range): BP systolic 100–138; BP diastolic 56–78; PULSE 51–99; RESP 17–20; TEMP 36.2–37; O2SAT 90–99
[2021-02-03] MEDS: Famotidine 20 MG TABLET 40 MG PO ×2 (08:36→20:44)
[2021-02-03] MEDS: 0.9 % Sodium Chloride Flush 3 ML SYRINGE IVFLUSH ×3 (08:36→20:52)
[2021-02-03] MEDS: amLODIPine Besylate 2.5 MG TABLET PO (08:37)
[2021-02-03] MEDS: Metoprolol Succinate ER 25 MG TAB.ER.24H PO (08:37)
[2021-02-03] MEDS: predniSONE 20 MG TABLET 40 MG PO (08:37)
[2021-02-03] MEDS: Losartan Potassium 50 MG TABLET PO (08:37)
[2021-02-03] MEDS: Ezetimibe 10 MG TABLET PO (08:37)
[2021-02-03] MEDS: Zinc Sulfate 220 MG CAPSULE PO (08:37)
--- NOTE | 2021-02-03 12:28 | MHC.CM.PN ---
Female 75 DX Covid+ No discharge today. Pt continues to require oxgen at 15L. DP Home no services family transport. Depending on pts recovery, she may need STR. When she has started to recover a home PT eval will be ordered. The eval will assist with dc disposition.
--- NOTE | 2021-02-03 12:58 | MHC.CLN ---
RE: CONSULT PT WITH INCREASED NUTRITION RISK R/T FRAGILE SKIN WILL LIBERALIZE DIET TO REGULAR PO INTAKE GOOD
--- NOTE | 2021-02-03 15:58 | P.PNIM_ITS ---
Subjective Subjective Date of Service: 02/03/21 Interval History: f/u on covid related hypoxia, persistent hypoxia and now with some chest pain, no hmoptysis, still on high amount of o2 Physical Exam Vital Signs: Vital Signs: Last Vital Signs Temp 97.3 F 02/03/21 15:28 Pulse 99 02/03/21 15:28 Resp 18 02/03/21 15:28 BP 125/58 L 02/03/21 15:28 Pulse Ox 99 02/03/21 15:28 Oxygen Flow Rate 4 01/21/21 10:50 Body Mass Index 26.9 Const: Other: General: AO X 3, no acute distress Resp:? Clear lungs bilaterally, no accessory muscle use, she is toxin full sentences. CVS: S1,S2,RRR GI: +BS, NT, no distention Skin: No rash Neuro:? motor grossly intact Psych: appropriate affect Objective Data Active Medications Amlodipine Besylate (Amlodipine Besylate 2.5 Mg Tablet) 2.5 mg PO DAILY [facility]; Protocol Last Admin: 02/03/21 08:37 Dose: 2.5 mg Documented by: LALO Benzonatate (Benzonatate 100 Mg Capsule) 100 mg PO TID PRN PRN Reason: Cough Last Admin: 02/02/21 20:32 Dose: 100 mg Documented by: RASHID Ezetimibe (Ezetimibe 10 Mg Tablet) 10 mg PO DAILY [facility] Last Admin: 02/03/21 08:37 Dose: 10 mg Documented by: LALO Enoxaparin Sodium (Enoxaparin Sodium 40 Mg/0.4 Ml Syringe) 40 mg SUBCUT Q24H [facility] Last Admin: 02/02/21 17:43 Dose: 40 mg Documented by: HALINA Famotidine (Famotidine 20 Mg Tablet) 40 mg PO BID [facility] Last Admin: 02/03/21 08:36 Dose: 40 mg Documented by: LALO Guaifenesin/Codeine Phosphate (Guaifen/Codeine Sf 200/20/10ml 10 Ml Liquid) 5 ml PO Q6H PRN PRN Reason: Cough Last Admin: 02/02/21 17:47 Dose: 5 ml Documented by: HALINA Losartan Potassium (Losartan Potassium 50 Mg Tablet) 50 mg PO DAILY [facility]; Prot ocol Last Admin: 02/03/21 08:37 Dose: 50 mg Documented by: LALO Melatonin (Melatonin 3 Mg Tablet) 6 mg PO BEDTIME PRN PRN Reason: Insomnia Last Admin: 02/02/21 23:47 Dose: 6 mg Documented by: RASHID Metoprolol Succinate (Metoprolol Succinate Er 25 Mg Tab.Er.24h) 25 mg PO DAILY [facility]; Protocol Last Admin: 02/03/21 08:37 Dose: 25 mg Documented by: LALO Morphine Sulfate (Morphine Sulfate 2 Mg/Ml Cartridge) 1 mg IVPUSH Q4H PRN; Protocol PRN Reason: Pain, Severe (Pain Scale 7-10) Last Admin: 02/02/21 20:32 Dose: 1 mg Documented by: RASHID Prednisone (Prednisone 20 Mg Tablet) 40 mg PO DAILY [facility] Last Admin: 02/03/21 08:37 Dose: 40 mg Documented by: LALO Sodium Chloride (0.9 % Sodium Chloride Flush 3 Ml Syringe) 3 ml IVFLUSH QSHIFT [facility] Last Admin: 02/03/21 08:36 Dose: 3 ml Documented by: LLAO Zinc Sulfate (Zinc Sulfate 220 Mg Capsule) 220 mg PO DAILY [facility] Last Admin: 02/03/21 08:37 Dose: 220 mg Documented by: LALO Labs CBC & Chem 7: 01/28/21 06:25 01/31/21 12:34 Assessment and Plan (1) Acute hypoxemic respiratory failure: Status: Acute (2) COVID-19: Status: Acute (3) Hypoxia: Status: Acute Assessment and Plan: 75/F with covid related hypoxic resp failure 1. Acute hypoxemic respiratory d/t covid PNA persisten hypoxia, continue supportive care wean O2 as feasible continue steroid, prednisone Pepcid, Zinc--not well validated options but low risk for harm echo with normal EF CTA to rule concurent PE 2.HLD: continue statin 3.HTN--Toprololx, Losartan, Norvasc 3. Anxiety:Continue home anxiety medication DVT prophylaxis:? Lovenox Discussed with patient and over the phone, Quality Stroke Does the patient have a stroke diagnosis?: No VTE Prior VTE?: No VTE Risk Level:: Medical - moderate - high VTE Device Contraindication: N/A - Device Ordered VTE Drug Contraindication: N/A - Med Ordered
[2021-02-03] MEDS: Enoxaparin Sodium 40 MG/0.4 ML SYRINGE SUBCUT (17:35)
[2021-02-03] MEDS: iohexoL 350 MG/ML 100 ML INFUS..BTL IV (18:23)
--- NOTE | 2021-02-03 18:41 | PC.NURSE ---
This evening, patient reported increased chest pain. MD notified. EKG obtained and WNL. Chest CT was obtained earlier to r/t PE. See Expanse for assessments.
[2021-02-03] MEDS: Morphine Sulfate 2 MG/ML CARTRIDGE 1 MG IVPUSH (22:15)
[2021-02-03] MEDS: Melatonin 3 MG TABLET 6 MG PO (22:15)
--- NOTE | 2021-02-04 | ECG_ITS ---
Test Reason : pause Blood Pressure : / mmHG Vent. Rate : 060 BPM Atrial Rate : 060 BPM P-R Int : 138 ms QRS Dur : 074 ms QT Int : 396 ms P-R-T Axes : 059 008 -05 degrees QTc Int : 396 ms Normal sinus rhythm Normal ECG When compared with ECG of 03-FEB-2021 19:28, No significant change was found Referred By: Sandy Thomas Electronically Signed By:TYLER POWERS
[2021-02-04 03:41] VITALS: BP 111/49; PULSE 76; RESP 18; O2SAT 99
[2021-02-04 07:29] VITALS: BP 120/50; PULSE 63; RESP 19; TEMP 36.3; O2SAT 93
[2021-02-04] MEDS: 0.9 % Sodium Chloride Flush 3 ML SYRINGE IVFLUSH ×2 (09:32→17:05)
[2021-02-04] MEDS: Famotidine 20 MG TABLET 40 MG PO ×2 (09:32→21:32)
[2021-02-04] MEDS: Losartan Potassium 50 MG TABLET PO (09:32)
[2021-02-04] MEDS: Ezetimibe 10 MG TABLET PO (09:33)
[2021-02-04] MEDS: Metoprolol Succinate ER 25 MG TAB.ER.24H PO (09:33)
[2021-02-04] MEDS: amLODIPine Besylate 2.5 MG TABLET PO (09:33)
[2021-02-04] MEDS: Zinc Sulfate 220 MG CAPSULE PO (09:33)
[2021-02-04] MEDS: predniSONE 20 MG TABLET 40 MG PO (09:33)
[2021-02-04 11:39] VITALS: BP 114/47; PULSE 65; RESP 18; TEMP 36.5; O2SAT 100
[2021-02-04] MEDS: ALPRAZolam 0.5 MG TABLET PO (15:07)
[2021-02-04] MEDS: Lidocaine 4 % Patch ADH..PATCH 1 PATCH TRANSDERMA (15:07)
[2021-02-04 15:35] VITALS: BP 138/72; PULSE 81; RESP 18; TEMP 36.9; O2SAT 96
[2021-02-04] MEDS: Enoxaparin Sodium 40 MG/0.4 ML SYRINGE SUBCUT (17:04)
--- NOTE | 2021-02-04 17:24 | P.PNIM_ITS ---
Subjective Subjective Date of Service: 02/04/21 Interval History: acute hypoxemic respiratory failure secondary to COVID. 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 Physical Exam Vital Signs: Vital Signs: Last Vital Signs Temp 98.4 F 02/04/21 15:35 Pulse 81 02/04/21 15:35 Resp 18 02/04/21 15:35 BP 138/72 02/04/21 15:35 Pulse Ox 96 02/04/21 15:35 Oxygen Flow Rate 4 01/21/21 10:50 Body Mass Index 26.9 General: AO X 3, no acute distress Resp:? Clear lungs bilaterally, no accessory muscle use, she is toxin full sentences. CVS: S1,S2,RRR GI: +BS, NT, no distention Skin: No rash Neuro:? motor grossly intact Psych: appropriate affect Objective Data Active Medications Amlodipine Besylate (Amlodipine Besylate 2.5 Mg Tablet) 2.5 mg PO DAILY [facility]; Protocol Last Admin: 02/04/21 09:33 Dose: 2.5 mg Documented by: GERSON Benzonatate (Benzonatate 100 Mg Capsule) 100 mg PO TID PRN PRN Reason: Cough Last Admin: 02/02/21 20:32 Dose: 100 mg Documented by: RASHID Ezetimibe (Ezetimibe 10 Mg Tablet) 10 mg PO DAILY [facility] Last Admin: 02/04/21 09:33 Dose: 10 mg Documented by: GERSON Enoxaparin Sodium (Enoxaparin Sodium 40 Mg/0.4 Ml Syringe) 40 mg SUBCUT Q24H [facility] Last Admin: 02/04/21 17:04 Dose: 40 mg Documented by: JESSICA Famotidine (Famotidine 20 Mg Tablet) 40 mg PO BID [facility] Last Admin: 02/04/21 09:32 Dose: 40 mg Documented by: GERSON Guaifenesin/Codeine Phosphate (Guaifen/Codeine Sf 200/20/10ml 10 Ml Liquid) 5 ml PO Q6H PRN PRN Reason: Cough Last Admin: 02/02/21 17:47 Dose: 5 ml Documented by: HALINA Lidocaine (Lidocaine 4 % Patch Adh..Patch) 1 patch TRANSDERMA DAILY [facility]; Protocol Last Admin: 02/04/21 15:07 Dose: 1 patch Documented by: GERSON Losartan Potassium (Losartan Potassium 50 Mg Tablet) 50 mg PO DAILY [facility]; Protocol Last Admin: 02/04/21 09:32 Dose: 50 mg Documented by: GERSON Melatonin (Melatonin 3 Mg Tablet) 6 mg PO BEDTIME PRN PRN Reason: Insomnia Last Admin: 02/03/21 22:15 Dose: 6 mg Documented by: LEONIDAS Metoprolol Succinate (Metoprolol Succinate Er 25 Mg Tab.Er.24h) 25 mg PO DAILY [facility]; Protocol Last Admin: 02/04/21 09:33 Dose: 25 mg Documented by: GERSON Morphine Sulfate (Morphine Sulfate 2 Mg/Ml Cartridge) 1 mg IVPUSH Q4H PRN; Protocol PRN Reason: Pain, Severe (Pain Scale 7-10) Last Admin: 02/03/21 22:15 Dose: 1 mg Documented by: LEONIDAS Prednisone (Prednisone 20 Mg Tablet) 40 mg PO DAILY [facility] Last Admin: 02/04/21 09:33 Dose: 40 mg Documented by: GERSON Sodium Chloride (0.9 % Sodium Chloride Flush 3 Ml Syringe) 3 ml IVFLUSH QSHIFT [facility] Last Admin: 02/04/21 17:05 Dose: 3 ml Documented by: JESSICA Zinc Sulfate (Zinc Sulfate 220 Mg Capsule) 220 mg PO DAILY [facility] Last Admin: 02/04/21 09:33 Dose: 220 mg Documented by: GERSON Labs CBC & Chem 7: 01/28/21 06:25 01/31/21 12:34 Assessment and Plan (1) Acute hypoxemic respiratory failure: Status: Acute (2) COVID-19: Status: Acute (3) Hypoxia: Status: Acute Assessment and Plan: 75/F with covid related hypoxic resp failure 1. Acute hypoxemic respiratory d/t covid PNA persisten hypoxia, continue supportive care wean O2 as feasible continue steroid, prednisone Pepcid, Zinc--not well validated? options but low risk for harm echo with normal EF CTA neg for pulm embolism ,There is persistent multilobar pneumonia. Overall, the pulmonary disease is mildly improved compared to 01/21/2021. 2.HLD: continue statin 3.HTN--Toprololx, Losartan, Norvasc 3. Anxiety:Continue home anxiety medication DVT prophylaxis:? Lovenox Discussed with patient and over the phone, Quality Stroke Does the patient have a stroke diagnosis?: No VTE Prior VTE?: No VTE Risk Level:: Medical - moderate - high VTE Device Contraindication: N/A - Device Ordered VTE Drug Contraindication: N/A - Med Ordered
[2021-02-04 19:36] VITALS: BP 142/60; PULSE 67; RESP 18; TEMP 37.1; O2SAT 94
[2021-02-04] MEDS: guaiFEN/Codeine SF 200/20/10ML 10 ML LIQUID 5 ML PO (21:39)
--- NOTE | 2021-02-04 22:32 | PC.NURSE ---
Cardiac pause 3.3 seconds at 20:50 , pt alert , denied any ,chest pain ,no dizziness,no increase in sob. Cardiac strips reviewed from today and yesterday and it showed pauses less than [address] Gaitan aware .
--- NOTE | 2021-02-04 22:43 | ECG_ITS ---
Test Reason : cardiac pauses Blood Pressure : / mmHG Vent. Rate : 072 BPM Atrial Rate : 072 BPM P-R Int : 142 ms QRS Dur : 074 ms QT Int : 380 ms P-R-T Axes : 043 -06 -03 degrees QTc Int : 416 ms Normal sinus rhythm Minimal voltage criteria for LVH, may be normal variant Borderline ECG No significant changes when compared with the previous EKG of 31 jan 2021 Referred By: Sandy Thomas Electronically Signed By:TYLER POWERS
--- NOTE | 2021-02-04 22:53 | PM.EVENT ---
Event Note Date of Service: 02/04/21 Event Note: patient had multiple pauses noted on telemetry. asymptomatic. will hold Lopressor, obtain ekg, echo and consult cardiology
--- NOTE | 2021-02-04 22:54 | PC.NURSE ---
Addendum entered by Chantelle Shi RN 02/04/21 23:05: Metoprolol dc'd d/t cardiac pauses Original Note: new orders from DR Thomas d/t cardiac pauses :EKG, ECHO, cardiology consult
--- NOTE | 2021-02-04 23:44 | PC.NURSE ---
Pt reported that she has implanted device to monitor her heart rhythm. Pt stated that device was implanted in [facility].
[2021-02-05] VITALS (10 sets, daily range): BP systolic 118–138; BP diastolic 49–68; PULSE 58–100; RESP 15–20; TEMP 36.8–37.2; O2SAT 94–98
[2021-02-05] MEDS: 0.9 % Sodium Chloride Flush 3 ML SYRINGE IVFLUSH ×4 (00:42→21:01)
--- NOTE | 2021-02-05 08:09 | HO.PM.IMPN ---
Subjective Subjective Date of Service: 02/05/21 Interval History: acute hypoxemic respiratory failure secondary to COVID. Review of Systems Shortness of breath slowly improving says cough is better and anxiety chi also feeling slightly better. Denies any nausea vomiting or fever or chills or phlegm Physical Exam Vital Signs: Vital Signs: Last Vital Signs Temp 98.9 F 02/05/21 07:29 Pulse 58 02/05/21 07:29 Resp 20 02/05/21 07:29 BP 118/58 L 02/05/21 07:29 Pulse Ox 96 02/05/21 07:29 Oxygen Flow Rate 4 01/21/21 10:50 Body Mass Index 26.9 General: AO X 3, no acute distress Resp:? air entry improving,full sentences. CVS: S1,S2,RRR GI: +BS, NT, no distention Skin: No rash Neuro:? motor grossly intact Psych: appropriate affect Objective Data Active Medications Amlodipine Besylate (Amlodipine Besylate 2.5 Mg Tablet) 2.5 mg PO DAILY [facility]; Protocol Last Admin: 02/04/21 09:33 Dose: 2.5 mg Documented by: GERSON Benzonatate (Benzonatate 100 Mg Capsule) 100 mg PO TID PRN PRN Reason: Cough Last Admin: 02/02/21 20:32 Dose: 100 mg Documented by: RASHID Ezetimibe (Ezetimibe 10 Mg Tablet) 10 mg PO DAILY [facility] Last Admin: 02/04/21 09:33 Dose: 10 mg Documented by: GERSON Enoxaparin Sodium (Enoxaparin Sodium 40 Mg/0.4 Ml Syringe) 40 mg SUBCUT Q24H [facility] Last Admin: 02/04/21 17:04 Dose: 40 mg Documented by: JESSICA Famotidine (Famotidine 20 Mg Tablet) 40 mg PO BID [facility] Last Admin: 02/04/21 21:32 Dose: 40 mg Documented by: JESSICA Guaifenesin/Codeine Phosphate (Guaifen/Codeine Sf 200/20/10ml 10 Ml Liquid) 5 ml PO Q6H PRN PRN Reason: Cough Last Admin: 02/04/21 21:39 Dose: 5 ml Documented by: JESSICA Lidocaine (Lidocaine 4 % Patch Adh..Patch) 1 patch TRANSDERMA DAILY [facility]; Protocol Last Admin: 02/04/21 15:07 Dose: 1 patch Documented by: GERSON Losartan Potassium (Losartan Potassium 50 Mg Tablet) 50 mg PO DAILY [facility]; Protocol Last Admin: 02/04/21 09:32 Dose: 50 mg Documented by: GERSON Melatonin (Melatonin 3 Mg Tablet) 6 mg PO BEDTIME PRN PRN Reason: Insomnia Last Admin: 02/03/21 22:15 Dose: 6 mg Documented by: LEONIDAS Morphine Sulfate (Morphine Sulfate 2 Mg/Ml Cartridge) 1 mg IVPUSH Q4H PRN; Protocol PRN Reason: Pain, Severe (Pain Scale 7-10) Last Admin: 02/03/21 22:15 Dose: 1 mg Documented by: LEONIDAS Prednisone (Prednisone 20 Mg Tablet) 40 mg PO DAILY [facility] Last Admin: 02/04/21 09:33 Dose: 40 mg Documented by: GERSON Sodium Chloride (0.9 % Sodium Chloride Flush 3 Ml Syringe) 3 ml IVFLUSH QSHIFT [facility] Last Admin: 02/05/21 00:42 Dose: 3 ml Documented by: PATRIZIA Zinc Sulfate (Zinc Sulfate 220 Mg Capsule) 220 mg PO DAILY [facility] Last Admin: 02/04/21 09:33 Dose: 220 mg Documented by: GERSON Labs CBC & Chem 7: 01/28/21 06:25 02/05/21 09:10 Assessment and Plan (1) Acute hypoxemic respiratory failure: Status: Acute (2) COVID-19: Status: Acute (3) Hypoxia: Status: Acute Assessment and Plan: 75/F with covid related hypoxic resp failure 1. Acute hypoxemic respiratory d/t covid PNA persisten hypoxia, continue supportive care wean O2 as feasible continue steroid, prednisone Pepcid, Zinc--not well validated? options but low risk for harm echo with normal EF CTA neg for pulm embolism ,There is persistent multilobar pneumonia. Overall, the pulmonary disease is mildly improved compared to 01/21/2021. 2.HLD: continue statin 3.HTN--Toprololx, Losartan, Norvasc 4. Anxiety:Continue home anxiety medication 5. bradycardia with pauses: Will hold beta-jairo, echo, TSH asymptomatic. hold off on Cardio evaluation unless have persistent pauses. DVT prophylaxis:? Lovenox Quality Stroke Does the patient have a stroke diagnosis?: No VTE Prior VTE?: No VTE Risk Level:: Medical - moderate - high VTE Device Contraindication: N/A - Device Ordered VTE Drug Contraindication: N/A - Med Ordered
--- NOTE | 2021-02-05 08:20 | PC.NURSE ---
Skin assessment completed. Patient has redness to bilateral buttocks-barrier cream applied. No other skin issues noted at this time.
[2021-02-05] MEDS: amLODIPine Besylate 2.5 MG TABLET PO (08:49)
[2021-02-05] MEDS: predniSONE 20 MG TABLET 40 MG PO (08:49)
[2021-02-05] MEDS: Ezetimibe 10 MG TABLET PO (08:49)
[2021-02-05] MEDS: Famotidine 20 MG TABLET 40 MG PO ×2 (08:49→21:01)
[2021-02-05] MEDS: Losartan Potassium 50 MG TABLET PO (08:50)
[2021-02-05] MEDS: Zinc Sulfate 220 MG CAPSULE PO (08:50)
[2021-02-05 10:09] LABS: Anion Gap 18 (12-20); Blood Urea Nitrogen 16 mg/dL (9-16); Calcium 8.4 mg/dL (8.4-10.2); Carbon Dioxide 23 mmol/L (22-29); Chloride 103 mmol/L (96-108); Creatinine Clr Calc Pharmacy 49.3; Estimated Glomerular Filt Rate > 60; Glucose Random 241 mg/dL (60-115); Potassium 3.8 mmol/L (3.3-5.1); Sodium 140 mmol/L (135-145)
[2021-02-05 10:14] LABS: Thyroid Stimulating Hormone 1.95 uIU/mL (0.32-4.0)
--- NOTE | 2021-02-05 14:07 | MHC.CM.PN ---
Female 75 DX Covid No discharge today. Level of O2 required has decreased from 15L down to 8L. DP home with or without services. A home o2 eval and PT eval will be ordered when ss improve. The evals will assist with determining dispo @ DC.
[2021-02-05] MEDS: guaiFEN/Codeine SF 200/20/10ML 10 ML LIQUID 5 ML PO (15:40)
[2021-02-05] MEDS: Enoxaparin Sodium 40 MG/0.4 ML SYRINGE SUBCUT (18:55)
[2021-02-05] MEDS: Morphine Sulfate 2 MG/ML CARTRIDGE 1 MG IVPUSH (21:20)
[2021-02-06 03:47] VITALS: BP 133/62; PULSE 67; RESP 18; TEMP 36.9; O2SAT 96
[2021-02-06 07:46] LABS: Anion Gap 14 (12-20); Blood Urea Nitrogen 16 mg/dL (9-16); Carbon Dioxide 24 mmol/L (22-29); Chloride 106 mmol/L (96-108); Estimated Glomerular Filt Rate > 60; Glucose Random 98 mg/dL (60-115); Potassium 4.8 mmol/L (3.3-5.1); Sodium 139 mmol/L (135-145)
[2021-02-06 07:49] VITALS: BP 130/56; PULSE 79; RESP 20; TEMP 36.5; O2SAT 94
[2021-02-06] MEDS: predniSONE 20 MG TABLET 40 MG PO (08:05)
[2021-02-06] MEDS: Ezetimibe 10 MG TABLET PO (08:06)
[2021-02-06] MEDS: amLODIPine Besylate 2.5 MG TABLET PO (08:06)
[2021-02-06] MEDS: Zinc Sulfate 220 MG CAPSULE PO (08:06)
[2021-02-06] MEDS: Losartan Potassium 50 MG TABLET PO (08:06)
[2021-02-06] MEDS: Famotidine 20 MG TABLET 40 MG PO ×2 (08:06→21:12)
[2021-02-06] MEDS: guaiFEN/Codeine SF 200/20/10ML 10 ML LIQUID 5 ML PO (08:06)
[2021-02-06] MEDS: 0.9 % Sodium Chloride Flush 3 ML SYRINGE IVFLUSH ×3 (08:07→21:12)
[2021-02-06] MEDS: Lidocaine 4 % Patch ADH..PATCH 1 PATCH TRANSDERMA (08:08)
[2021-02-06 12:00] VITALS: BP 135/63; PULSE 107; RESP 19; TEMP 36.8; O2SAT 93
--- NOTE | 2021-02-06 13:12 | P.PNIM_ITS ---
Subjective Subjective Date of Service: 02/06/21 Interval History: Acute hypoxemic respiratory failure secondary to COVID. Review of Systems Shortness of breath chi slightly better this morning but still feels anxious Denies any chest pain or abdominal pain or cough or phlegm or fever or chills. Physical Exam Vital Signs: Vital Signs: Last Vital Signs Temp 98.2 F 02/06/21 12:00 Pulse 107 H 02/06/21 12:00 Resp 19 02/06/21 12:00 BP 135/63 02/06/21 12:00 Pulse Ox 93 02/06/21 12:00 Oxygen Flow Rate 4 01/21/21 10:50 BMI result Body Mass Index 26.9 General: AO X 3, no acute distress Resp:? air entry improvin, no rales or wheezing. CVS: S1,S2,RRR GI: +BS, NT, no distention Skin: No rash Neuro:? motor grossly intact Psych: appropriate affect Objective Data Active Medications Alprazolam (Alprazolam 0.5 Mg Tablet) 0.5 mg PO BID PRN PRN Reason: Anxiety Amlodipine Besylate (Amlodipine Besylate 2.5 Mg Tablet) 2.5 mg PO DAILY [facility]; Protocol Last Admin: 02/06/21 08:06 Dose: 2.5 mg Documented by: SWETHA Benzonatate (Benzonatate 100 Mg Capsule) 100 mg PO TID PRN PRN Reason: Cough Last Admin: 02/02/21 20:32 Dose: 100 mg Documented by: RASHID Ezetimibe (Ezetimibe 10 Mg Tablet) 10 mg PO DAILY [facility] Last Admin: 02/06/21 08:06 Dose: 10 mg Documented by: SWETHA Enoxaparin Sodium (Enoxaparin Sodium 40 Mg/0.4 Ml Syringe) 40 mg SUBCUT Q24H [facility] Last Admin: 02/05/21 18:55 Dose: 40 mg Documented by: RICHARD Famotidine (Famotidine 20 Mg Tablet) 40 mg PO BID [facility] Last Admin: 02/06/21 08:06 Dose: 40 mg Documented by: SWETHA Guaifenesin/Codeine Phosphate (Guaifen/Codeine Sf 200/20/10ml 10 Ml Liquid) 5 ml PO Q6H PRN PRN Reason: Cough Last Admin: 02/06/21 08:06 Dose: 5 ml Documented by: SWETHA Lidocaine (Lidocaine 4 % Patch Adh..Patch) 1 patch TRANSDERMA DAILY [facility]; Protocol Last Admin: 02/06/21 08:08 Dose: 1 patch Documented by: SWETHA Losartan Potassium (Losartan Potassium 50 Mg Tablet) 50 mg PO DAILY [facility]; Protocol Last Admin: 02/06/21 08:06 Dose: 50 mg Documented by: SWETHA Melatonin (Melatonin 3 Mg Tablet) 6 mg PO BEDTIME PRN PRN Reason: Insomnia Last Admin: 02/03/21 22:15 Dose: 6 mg Documented by: Morphine Sulfate (Morphine Sulfate 2 Mg/Ml Cartridge) 1 mg IVPUSH Q4H PRN; Protocol PRN Reason: Pain, Severe (Pain Scale 7-10) Last Admin: 02/05/21 21:20 Dose: 1 mg Documented by: MAHAMED Prednisone (Prednisone 20 Mg Tablet) 40 mg PO DAILY [facility] Last Admin: 02/06/21 08:05 Dose: 40 mg Documented by: SWETHA Sodium Chloride (0.9 % Sodium Chloride Flush 3 Ml Syringe) 3 ml IVFLUSH QSHIFT [facility] Last Admin: 02/06/21 08:07 Dose: 3 ml Documented by: SWETHA Zinc Sulfate (Zinc Sulfate 220 Mg Capsule) 220 mg PO DAILY [facility] Last Admin: 02/06/21 08:06 Dose: 220 mg Documented by: SWETHA Labs CBC & Chem 7: 01/28/21 06:25 02/06/21 06:39 Labs: Laboratory Results - last 24 hr 02/06/21 06:39 Anion Gap 14 Estim Creat Clear Calc 61.0 Estimated GFR > 60 Random Glucose 98 Calcium 8.0 L Assessment and Plan (1) Acute hypoxemic respiratory failure: Status: Acute (2) COVID-19: Status: Acute Assessment and Plan: 75/F with covid related hypoxic resp failure 1. Acute hypoxemic respiratory d/t covid PNA persistent hypoxia slightly improving continue supportive care-wean O2 as feasible, steroid, prednisone,Pepcid, Zinc--not well validated? options but low risk for harm echo with normal EF CTA neg for pulm embolism ,There is persistent multilobar pneumonia. Overall, the pulmonary disease is mildly improved compared to 01/21/2021. 2.HLD: continue statin. 3.HTN--Toprololx, Losartan, Norvasc. 4. Anxiety:Continue home anxiety medication. 5. bradycardia with pauses: ? Will hold beta-jairo, TSH normal ?asymptomatic. Discussed with Cardiology yesterday- bradycardia and pauses probably related to beta-jairo hold off- beta-jairo for now. Echo pending if further bradycardia and pauses we will reconsider Cardio evaluation. DVT prophylaxis:? Lovenox Quality Stroke Does the patient have a stroke diagnosis?: No VTE Prior VTE?: No VTE Risk Level:: Medical - moderate - high VTE Device Contraindication: N/A - Device Ordered VTE Drug Contraindication: N/A - Med Ordered
[2021-02-06 15:41] VITALS: BP 99/52; PULSE 80; RESP 20; TEMP 36.1; O2SAT 97
[2021-02-06] MEDS: Enoxaparin Sodium 40 MG/0.4 ML SYRINGE SUBCUT (17:22)
[2021-02-06 19:17] VITALS: BP 110/40; PULSE 80; RESP 20; TEMP 36.2; O2SAT 96
[2021-02-06] MEDS: ALPRAZolam 0.5 MG TABLET PO (21:12)
[2021-02-06 23:04] VITALS: BP 102/42; PULSE 80; RESP 20; TEMP 36.1; O2SAT 100
[2021-02-07 04:00] VITALS: BP 135/64; PULSE 58; RESP 17; TEMP 36.5; O2SAT 100
[2021-02-07 04:57] LABS: SARS COV2 IgG Positive (Negative)
--- NOTE | 2021-02-07 07:54 | HO.PM.IMPN ---
Subjective Subjective Date of Service: 02/07/21 Interval History: acute hypoxemic respiratory failure secondary to COVID Review of Systems shortness of breath slightly improving than yesterday denies any cough or chest pain or abdominal pain or nausea or vomiting. Physical Exam Vital Signs: Vital Signs: Last Vital Signs Temp 97.7 F 02/07/21 04:00 Pulse 58 02/07/21 04:00 Resp 17 02/07/21 04:00 BP 135/64 02/07/21 04:00 Pulse Ox 100 02/07/21 04:00 Oxygen Flow Rate 4 01/21/21 10:50 BMI result Body Mass Index 26.9 General: AO X 3, no acute distress Resp:? air entry improvin, no rales or wheezing. CVS: S1,S2,RRR GI: +BS, NT, no distention Skin: No rash Neuro:? motor grossly intact Psych: appropriate affect Objective Data Active Medications Alprazolam (Alprazolam 0.5 Mg Tablet) 0.5 mg PO BID PRN PRN Reason: Anxiety Last Admin: 02/06/21 21:12 Dose: 0.5 mg Documented by: MAHAMED Amlodipine Besylate (Amlodipine Besylate 2.5 Mg Tablet) 2.5 mg PO DAILY [facility]; Protocol Last Admin: 02/06/21 08:06 Dose: 2.5 mg Documented by: SWETHA Benzonatate (Benzonatate 100 Mg Capsule) 100 mg PO TID PRN PRN Reason: Cough Last Admin: 02/02/21 20:32 Dose: 100 mg Documented by: RASHID Ezetimibe (Ezetimibe 10 Mg Tablet) 10 mg PO DAILY [facility] Last Admin: 02/06/21 08:06 Dose: 10 mg Documented by: SWETHA Enoxaparin Sodium (Enoxaparin Sodium 40 Mg/0.4 Ml Syringe) 40 mg SUBCUT Q24H [facility] Last Admin: 02/06/21 17:22 Dose: 40 mg Documented by: SWETHA Famotidine (Famotidine 20 Mg Tablet) 40 mg PO BID [facility] Last Admin: 02/06/21 21:12 Dose: 40 mg Documented by: MAHAMED Guaifenesin/Codeine Phosphate (Guaifen/Codeine Sf 200/20/10ml 10 Ml Liquid) 5 ml PO Q6H PRN PRN Reason: Cough Last Admin: 02/06/21 08:06 Dose: 5 ml Documented by: Lidocaine (Lidocaine 4 % Patch Adh..Patch) 1 patch TRANSDERMA DAILY [facility]; Protocol Last Admin: 02/06/21 08:08 Dose: 1 patch Documented by: SWETHA Losartan Potassium (Losartan Potassium 50 Mg Tablet) 50 mg PO DAILY [facility]; Protocol Last Admin: 02/06/21 08:06 Dose: 50 mg Documented by: SWETHA Melatonin (Melatonin 3 Mg Tablet) 6 mg PO BEDTIME PRN PRN Reason: Insomnia Last Admin: 02/03/21 22:15 Dose: 6 mg Documented by: Morphine Sulfate (Morphine Sulfate 2 Mg/Ml Cartridge) 1 mg IVPUSH Q4H PRN; Protocol PRN Reason: Pain, Severe (Pain Scale 7-10) Last Admin: 02/05/21 21:20 Dose: 1 mg Documented by: MAHAMED Prednisone (Prednisone 20 Mg Tablet) 40 mg PO DAILY [facility] Last Admin: 02/06/21 08:05 Dose: 40 mg Documented by: SWETHA Sodium Chloride (0.9 % Sodium Chloride Flush 3 Ml Syringe) 3 ml IVFLUSH QSHIFT [facility] Last Admin: 02/06/21 21:12 Dose: 3 ml Documented by: MAHAMED Zinc Sulfate (Zinc Sulfate 220 Mg Capsule) 220 mg PO DAILY [facility] Last Admin: 02/06/21 08:06 Dose: 220 mg Documented by: SWETHA Labs CBC & Chem 7: 01/28/21 06:25 02/06/21 06:39 Labs: Laboratory Results - last 24 hr 02/06/21 06:39 SARS-CoV-2 IgG Ab Positive Assessment and Plan (1) Acute hypoxemic respiratory failure: Status: Acute (2) COVID-19: Status: Acute Assessment and Plan: 75/F with covid related hypoxic resp failure 1. Acute hypoxemic respiratory d/t covid PNA persistent hypoxia slightly improving continue supportive care-wean O2 as feasible, steroid, prednisone,Pepcid, Zinc--not well validated? options but low risk for harm echo with normal EF CTA neg for pulm embolism ,There is persistent multilobar pneumonia. Overall, the pulmonary disease is mildly improved compared to 01/21/2021. 2.HLD: continue statin. 3.HTN--Toprololx, Losartan, Norvasc. 4. Anxiety:Continue home anxiety medication. 5. bradycardia with pauses: ? Will hold beta-jairo, TSH normal ?asymptomatic. ? Discussed with Cardiology yesterday- bradycardia and pauses probably related to beta-jairo hold off- beta-jairo for now.? Echo :01/31: Normal left ventricular size, thickness, and systolic function. The visually estimated ejection fraction is between 60-65%.? Spectral Doppler is indicative of an impaired relaxation filling pattern.? E/E prime ratio is <8, consistent with normal filling pressures.? Evidence suggests grade I (mild) diastolic dysfunction. DVT prophylaxis:? Lovenox. Quality Stroke Does the patient have a stroke diagnosis?: No VTE Prior VTE?: No VTE Risk Level:: Medical - moderate - high VTE Device Contraindication: N/A - Device Ordered VTE Drug Contraindication: N/A - Med Ordered
[2021-02-07 08:00] VITALS: BP 133/49; PULSE 86; RESP 19; TEMP 37.1; O2SAT 94
--- NOTE | 2021-02-07 09:48 | MHC.CM.PN ---
Female 75 DX Covid+ Patient continues to be weaned from O2. She is requiring 7L today. DP home no services. Pt's family will provide transportation. She will need a Home O2 eval closer to discharge. Once she is requiring less O2.
[2021-02-07] MEDS: Famotidine 20 MG TABLET 40 MG PO ×2 (10:18→22:17)
[2021-02-07] MEDS: 0.9 % Sodium Chloride Flush 3 ML SYRINGE IVFLUSH ×3 (10:18→22:30)
[2021-02-07] MEDS: predniSONE 20 MG TABLET 40 MG PO (10:19)
[2021-02-07] MEDS: Zinc Sulfate 220 MG CAPSULE PO (10:19)
[2021-02-07] MEDS: amLODIPine Besylate 2.5 MG TABLET PO (10:19)
[2021-02-07] MEDS: Ezetimibe 10 MG TABLET PO (10:20)
[2021-02-07] MEDS: ALPRAZolam 0.5 MG TABLET PO ×2 (10:20→22:18)
[2021-02-07] MEDS: Losartan Potassium 50 MG TABLET PO (10:20)
[2021-02-07 11:10] VITALS: BP 106/58; PULSE 91; RESP 19; TEMP 36.4; O2SAT 98
[2021-02-07 15:51] VITALS: BP 115/51; PULSE 83; RESP 22; TEMP 36.9; O2SAT 100
[2021-02-07] MEDS: Enoxaparin Sodium 40 MG/0.4 ML SYRINGE SUBCUT (16:21)
[2021-02-07 19:40] VITALS: BP 109/55; PULSE 96; RESP 20; TEMP 36.8; O2SAT 97
[2021-02-08] VITALS (8 sets, daily range): BP systolic 113–153; BP diastolic 53–72; PULSE 54–95; RESP 18–21; TEMP 36.1–36.9; O2SAT 92–100
[2021-02-08] MEDS: predniSONE 20 MG TABLET 40 MG PO (09:59)
[2021-02-08] MEDS: amLODIPine Besylate 2.5 MG TABLET PO (09:59)
[2021-02-08] MEDS: Zinc Sulfate 220 MG CAPSULE PO (09:59)
[2021-02-08] MEDS: 0.9 % Sodium Chloride Flush 3 ML SYRINGE IVFLUSH ×3 (09:59→21:10)
[2021-02-08] MEDS: Famotidine 20 MG TABLET 40 MG PO ×2 (09:59→21:10)
[2021-02-08] MEDS: Losartan Potassium 50 MG TABLET PO (09:59)
[2021-02-08] MEDS: Ezetimibe 10 MG TABLET PO (09:59)
--- NOTE | 2021-02-08 13:32 | HO.PM.IMPN ---
Subjective Subjective Date of Service: 02/08/21 Interval History: Acute hypoxemic respiratory failure secondary to COVID pneumonia. Review of Systems Shortness of breath seems improving day by day, denies chest pain or abdominal pain or fever chills or cough or phlegm anxiety chi also improving. Physical Exam Vital Signs: Vital Signs: Last Vital Signs Temp 97.9 F 02/08/21 12:00 Pulse 78 02/08/21 12:00 Resp 18 02/08/21 12:00 BP 149/72 H 02/08/21 12:00 Pulse Ox 92 02/08/21 12:00 Oxygen Flow Rate 4 01/21/21 10:50 BMI result Body Mass Index 26.9 General: AO X 3, no acute distress Resp:? air entry improvin, no rales or wheezing. CVS: S1,S2,RRR GI: +BS, NT, no distention Skin: No rash Neuro:? motor grossly intact Psych: appropriate affect Objective Data Active Medications Alprazolam (Alprazolam 0.5 Mg Tablet) 0.5 mg PO BID PRN PRN Reason: Anxiety Last Admin: 02/07/21 22:18 Dose: 0.5 mg Documented by: TANJA Amlodipine Besylate (Amlodipine Besylate 2.5 Mg Tablet) 2.5 mg PO DAILY [facility]; Protocol Last Admin: 02/08/21 09:59 Dose: 2.5 mg Documented by: ZECHARIAH Benzonatate (Benzonatate 100 Mg Capsule) 100 mg PO TID PRN PRN Reason: Cough Last Admin: 02/02/21 20:32 Dose: 100 mg Documented by: RASHID Ezetimibe (Ezetimibe 10 Mg Tablet) 10 mg PO DAILY [facility] Last Admin: 02/08/21 09:59 Dose: 10 mg Documented by: ZECHARIAH Enoxaparin Sodium (Enoxaparin Sodium 40 Mg/0.4 Ml Syringe) 40 mg SUBCUT Q24H [facility] Last Admin: 02/07/21 16:21 Dose: 40 mg Documented by: SWETHA Famotidine (Famotidine 20 Mg Tablet) 40 mg PO BID [facility] Last Admin: 02/08/21 09:59 Dose: 40 mg Documented by: ZECHARIAH Guaifenesin/Codeine Phosphate (Guaifen/Codeine Sf 200/20/10ml 10 Ml Liquid) 5 ml PO Q6H PRN PRN Reason: Cough Last Admin: 02/06/21 08:06 Dose: 5 ml Documented by: Lidocaine (Lidocaine 4 % Patch Adh..Patch) 1 patch TRANSDERMA DAILY [facility]; Protocol Last Admin: 02/08/21 09:59 Dose: 1 patch Documented by: ZECHARIAH Losartan Potassium (Losartan Potassium 50 Mg Tablet) 50 mg PO DAILY [facility]; Protocol Last Admin: 02/08/21 09:59 Dose: 50 mg Documented by: ZECHARIAH Melatonin (Melatonin 3 Mg Tablet) 6 mg PO BEDTIME PRN PRN Reason: Insomnia Last Admin: 02/03/21 22:15 Dose: 6 mg Documented by: Prednisone (Prednisone 20 Mg Tablet) 40 mg PO DAILY [facility] Last Admin: 02/08/21 09:59 Dose: 40 mg Documented by: ZECHARIAH Sodium Chloride (0.9 % Sodium Chloride Flush 3 Ml Syringe) 3 ml IVFLUSH QSHIFT [facility] Last Admin: 02/08/21 09:59 Dose: 3 ml Documented by: ZECHARIAH Zinc Sulfate (Zinc Sulfate 220 Mg Capsule) 220 mg PO DAILY [facility] Last Admin: 02/08/21 09:59 Dose: 220 mg Documented by: ZECHARIAH Labs CBC & Chem 7: 01/28/21 06:25 02/06/21 06:39 Assessment and Plan (1) Acute hypoxemic respiratory failure: Status: Acute (2) COVID-19: Status: Acute Assessment and Plan: 75/F with covid related hypoxic resp failure 1. Acute hypoxemic respiratory d/t covid PNA persistent hypoxia slightly improving continue supportive care-continue to wean O2 slowly, steroid, prednisone,Pepcid, Zinc--not well validated? options but low risk for harm echo with normal EF CTA neg for pulm embolism ,There is persistent multilobar pneumonia. Overall, the pulmonary disease is mildly improved compared to 01/21/2021. 2.HLD: continue statin. 3.HTN--Toprololx, Losartan, Norvasc. 4. Anxiety:Continue home anxiety medication. 5. bradycardia with pauses: ? Will hold beta-jairo, TSH normal ?asymptomatic. ? Discussed with Cardiology yesterday- bradycardia and pauses probably related to beta-jairo hold off- beta-jairo for now.? Echo :01/31: Normal left ventricular size, thickness, and systolic function. The visually estimated ejection fraction is between 60-65%.? Spectral Doppler is indicative of an impaired relaxation filling pattern.? E/E prime ratio is <8, consistent with normal filling pressures.? Evidence suggests grade I (mild) diastolic dysfunction. DVT prophylaxis:? Lovenox. Quality Stroke Does the patient have a stroke diagnosis?: No VTE Prior VTE?: No VTE Risk Level:: Medical - moderate - high VTE Device Contraindication: N/A - Device Ordered VTE Drug Contraindication: N/A - Med Ordered
[2021-02-08] MEDS: Enoxaparin Sodium 40 MG/0.4 ML SYRINGE SUBCUT (17:36)
[2021-02-08] MEDS: ALPRAZolam 0.5 MG TABLET PO (21:10)
[2021-02-09] VITALS (8 sets, daily range): BP systolic 100–152; BP diastolic 48–86; PULSE 76–108; RESP 18–20; TEMP 36.1–37.1; O2SAT 94–100
[2021-02-09] MEDS: Famotidine 20 MG TABLET 40 MG PO ×2 (09:36→20:50)
[2021-02-09] MEDS: Zinc Sulfate 220 MG CAPSULE PO (09:36)
[2021-02-09] MEDS: predniSONE 10 MG TABLET 30 MG PO (09:36)
[2021-02-09] MEDS: 0.9 % Sodium Chloride Flush 3 ML SYRINGE IVFLUSH ×3 (09:36→20:51)
[2021-02-09] MEDS: ALPRAZolam 0.5 MG TABLET PO ×2 (09:36→20:51)
[2021-02-09] MEDS: Losartan Potassium 50 MG TABLET PO (09:37)
[2021-02-09] MEDS: amLODIPine Besylate 2.5 MG TABLET PO (09:37)
[2021-02-09] MEDS: Ezetimibe 10 MG TABLET PO (09:54)
--- NOTE | 2021-02-09 13:36 | HO.PM.IMPN ---
Subjective Subjective Date of Service: 02/09/21 Interval History: acute hypoxemic respiratory failure secondary to COVID infection. Review of Systems Shortness of breath is slowly improving, anxiety is also under control seems like today. She said she has also could able to walk up bathroom with oxygen. Denies any chest pain or abdominal pain or nausea or vomiting or fever. Physical Exam Vital Signs: Vital Signs: Last Vital Signs Temp 98.5 F 02/09/21 10:58 Pulse 92 02/09/21 10:58 Resp 18 02/09/21 10:58 BP 136/60 02/09/21 10:58 Pulse Ox 95 02/09/21 10:58 Oxygen Flow Rate 4 01/21/21 10:50 BMI result Body Mass Index 26.9 General: AO X 3, no acute distress Resp:? air entry improvin, no rales or wheezing. CVS: S1,S2,RRR GI: +BS, NT, no distention Skin: No rash Neuro:? motor grossly intact Psych: appropriate affect Objective Data Active Medications Alprazolam (Alprazolam 0.5 Mg Tablet) 0.5 mg PO BID PRN PRN Reason: Anxiety Last Admin: 02/09/21 09:36 Dose: 0.5 mg Documented by: ZECHARIAH Amlodipine Besylate (Amlodipine Besylate 2.5 Mg Tablet) 2.5 mg PO DAILY [facility]; Protocol Last Admin: 02/09/21 09:37 Dose: 2.5 mg Documented by: ZECHARIAH Benzonatate (Benzonatate 100 Mg Capsule) 100 mg PO TID PRN PRN Reason: Cough Last Admin: 02/02/21 20:32 Dose: 100 mg Documented by: RASHID Ezetimibe (Ezetimibe 10 Mg Tablet) 10 mg PO DAILY [facility] Last Admin: 02/09/21 09:54 Dose: 10 mg Documented by: ZECHARIAH Enoxaparin Sodium (Enoxaparin Sodium 40 Mg/0.4 Ml Syringe) 40 mg SUBCUT Q24H [facility] Last Admin: 02/08/21 17:36 Dose: 40 mg Documented by: ZECHARIAH Famotidine (Famotidine 20 Mg Tablet) 40 mg PO BID [facility] Last Admin: 02/09/21 09:36 Dose: 40 mg Documented by: ZECHARIAH Guaifenesin/Codeine Phosphate (Guaifen/Codeine Sf 200/20/10ml 10 Ml Liquid) 5 ml PO Q6H PRN PRN Reason: Cough Last Admin: 02/06/21 08:06 Dose: 5 ml Documented by: Lidocaine (Lidocaine 4 % Patch Adh..Patch) 1 patch TRANSDERMA DAILY [facility]; Protocol Last Admin: 02/09/21 09:54 Dose: Not Given Documented by: ZECHARIAH Non-Admin Reason: Patient Refused Losartan Potassium (Losartan Potassium 50 Mg Tablet) 50 mg PO DAILY [facility]; Protocol Last Admin: 02/09/21 09:37 Dose: 50 mg Documented by: ZECHARIAH Melatonin (Melatonin 3 Mg Tablet) 6 mg PO BEDTIME PRN PRN Reason: Insomnia Last Admin: 02/03/21 22:15 Dose: 6 mg Documented by: Prednisone (Prednisone 10 Mg Tablet) 30 mg PO DAILY [facility] Last Admin: 02/09/21 09:36 Dose: 30 mg Documented by: ZECHARIAH Sodium Chloride (0.9 % Sodium Chloride Flush 3 Ml Syringe) 3 ml IVFLUSH QSHIFT [facility] Last Admin: 02/09/21 09:36 Dose: 3 ml Documented by: ZECHARIAH Zinc Sulfate (Zinc Sulfate 220 Mg Capsule) 220 mg PO DAILY [facility] Last Admin: 02/09/21 09:36 Dose: 220 mg Documented by: ZECHARIAH Labs CBC & Chem 7: 01/28/21 06:25 02/06/21 06:39 Assessment and Plan (1) Acute hypoxemic respiratory failure: Status: Acute (2) COVID-19: Status: Acute Assessment and Plan: 75/F with covid related hypoxic resp failure 1. Acute hypoxemic respiratory d/t covid PNA persistent hypoxia improving day by day Says echo with normal EF CTA neg for pulm embolism ,There is persistent multilobar pneumonia. Overall, the pulmonary disease is mildly improved compared to 01/21/2021. Her oxygen demand is improving day by day so we will get home oxygen evaluation in the morning and planned discharge if she continue to improve. continue supportive care-continue to wean O2 slowly,taper steroid, prednisone,Pepcid, Zinc--not well validated? options but low risk for harm 2.HLD: continue statin. 3.HTN--Toprololx, Losartan, Norvasc. 4. Anxiety:Continue home anxiety medication. 5. bradycardia with pauses: ? Will hold beta-jairo, TSH normal ?asymptomatic. ? Discussed with Cardiology yesterday- bradycardia and pauses probably related to beta-jairo hold off- beta-jairo for now.? Echo :01/31: Normal left ventricular size, thickness, and systolic function. The visually estimated ejection fraction is between 60-65%.? Spectral Doppler is indicative of an impaired relaxation filling pattern.? E/E prime ratio is <8, consistent with normal filling pressures.? Evidence suggests grade I (mild) diastolic dysfunction. DVT prophylaxis:? Lovenox. Quality Stroke Does the patient have a stroke diagnosis?: No VTE Prior VTE?: No VTE Risk Level:: Medical - moderate - high VTE Device Contraindication: N/A - Device Ordered VTE Drug Contraindication: N/A - Med Ordered
[2021-02-09] MEDS: guaiFEN/Codeine SF 200/20/10ML 10 ML LIQUID 5 ML PO ×2 (15:28→20:51)
[2021-02-09] MEDS: Enoxaparin Sodium 40 MG/0.4 ML SYRINGE SUBCUT (17:53)
--- NOTE | 2021-02-09 22:22 | PC.NURSE ---
2047 pt had 7 beat v-tach notified.ordered mag and bnp.pt asymptomatic
[2021-02-09 22:25] LABS: Glucose Random 264 mg/dL (60-115)
[2021-02-09 22:30] LABS: Anion Gap 13 (12-20); Blood Urea Nitrogen 29 mg/dL (9-16); Calcium 8.7 mg/dL (8.4-10.2); Carbon Dioxide 25 mmol/L (22-29); Chloride 103 mmol/L (96-108); Creatinine Clr Calc Pharmacy 49.9; Estimated Glomerular Filt Rate > 60; Magnesium 1.9 mg/dL (1.6-2.6); Potassium 4.4 mmol/L (3.3-5.1); Sodium 137 mmol/L (135-145)
[2021-02-10 03:19] VITALS: BP 138/76; PULSE 64; RESP 20; TEMP 37; O2SAT 96
[2021-02-10 08:00] VITALS: BP 132/67; PULSE 79; RESP 18; TEMP 36.6; O2SAT 95
--- NOTE | 2021-02-10 08:40 | HO.PM.IMPN ---
Subjective Subjective Date of Service: 02/10/21 Physical Exam Vital Signs: Vital Signs: Last Vital Signs Temp 97.9 F 02/10/21 08:00 Pulse 79 02/10/21 08:00 Resp 18 02/10/21 08:00 BP 132/67 02/10/21 08:00 Pulse Ox 95 02/10/21 08:00 Oxygen Flow Rate 4 01/21/21 10:50 BMI result Body Mass Index 26.9 Objective Data Active Medications Alprazolam (Alprazolam 0.5 Mg Tablet) 0.5 mg PO BID PRN PRN Reason: Anxiety Last Admin: 02/09/21 20:51 Dose: 0.5 mg Documented by: SACHIN Amlodipine Besylate (Amlodipine Besylate 2.5 Mg Tablet) 2.5 mg PO DAILY [facility]; Protocol Last Admin: 02/09/21 09:37 Dose: 2.5 mg Documented by: ZECHARIAH Benzonatate (Benzonatate 100 Mg Capsule) 100 mg PO TID PRN PRN Reason: Cough Last Admin: 02/02/21 20:32 Dose: 100 mg Documented by: RASHID Ezetimibe (Ezetimibe 10 Mg Tablet) 10 mg PO DAILY [facility] Last Admin: 02/09/21 09:54 Dose: 10 mg Documented by: ZECHARIAH Enoxaparin Sodium (Enoxaparin Sodium 40 Mg/0.4 Ml Syringe) 40 mg SUBCUT Q24H [facility] Last Admin: 02/09/21 17:53 Dose: 40 mg Documented by: ZECHARIAH Famotidine (Famotidine 20 Mg Tablet) 40 mg PO BID [facility] Last Admin: 02/09/21 20:50 Dose: 40 mg Documented by: SACHIN Guaifenesin/Codeine Phosphate (Guaifen/Codeine Sf 200/20/10ml 10 Ml Liquid) 5 ml PO Q6H PRN PRN Reason: Cough Last Admin: 02/09/21 20:51 Dose: 5 ml Documented by: SACHIN Lidocaine (Lidocaine 4 % Patch Adh..Patch) 1 patch TRANSDERMA DAILY [facility]; Protocol Last Admin: 02/09/21 09:54 Dose: Not Given Documented by: ZECHARIAH Non-Admin Reason: Patient Refused Losartan Potassium (Losartan Potassium 50 Mg Tablet) 50 mg PO DAILY [facility]; Protocol Last Admin: 02/09/21 09:37 Dose: 50 mg Documented by: ZECHARIAH Melatonin (Melatonin 3 Mg Tablet) 6 mg PO BEDTIME PRN PRN Reason: Insomnia Last Admin: 02/03/21 22:15 Dose: 6 mg Documented by: Prednisone (Prednisone 10 Mg Tablet) 30 mg PO DAILY [facility] Last Admin: 02/09/21 09:36 Dose: 30 mg Documented by: ZECHARIAH Sodium Chloride (0.9 % Sodium Chloride Flush 3 Ml Syringe) 3 ml IVFLUSH QSHIFT [facility] Last Admin: 02/09/21 20:51 Dose: 3 ml Documented by: SACHIN Zinc Sulfate (Zinc Sulfate 220 Mg Capsule) 220 mg PO DAILY [facility] Last Admin: 02/09/21 09:36 Dose: 220 mg Documented by: ZECHARIAH Labs CBC & Chem 7: 01/28/21 06:25 02/09/21 21:56 Labs: Laboratory Results - last 24 hr 02/09/21 21:56 Anion Gap 13 Estim Creat Clear Calc 49.9 Estimated GFR > 60 Random Glucose 264 H Calcium 8.7 D Magnesium 1.9 Quality Stroke Does the patient have a stroke diagnosis?: No VTE Prior VTE?: No VTE Risk Level:: Medical - moderate - high VTE Device Contraindication: N/A - Device Ordered VTE Drug Contraindication: N/A - Med Ordered
--- NOTE | 2021-02-10 08:44 | P.DS_ITS ---
DS: Providers Provider Date of Service: 02/10/21 Date of admission: 01/21/21 15:38 Primary care physician: Davidson Lopez MD Consults: 01/21/21 15:40 Consult to Infectious Diseases Routine Consulting Provider: Paty Lino Reason for consultation: COVID pneumonia/may need remdesivir has hypoxia. Has provider been notified: No 02/06/21 13:15 Consult to Care Team Routine Comment: Reason for consultation: anxiety DS: Diagnosis Discharge Diagnosis (1) Acute hypoxemic respiratory failure: Status: Acute (2) COVID-19: Status: Acute DS: Summary Hospital Course Hospital Course: 75-year-old female she was in the hospital 3 days back because of fever chills and fatigue-that time patient saturation was fine, and was sent home with p.o. azithromycin and prednisone. As per the previous ED provider note patient had symptoms for 1 week but currently patient is saying she has symptom for 5-6 days since her had symptom for 1week duration. Currently she is short of breath, no cough She is not vaccinated. She said her had similar symptom 1 day before her. Denies any new complaint of chest pain? or abdominal pain or fever or chills or nausea or vomiting or headache or dizziness. Denies any cough Denies any weakness or numbness. Hospital course :patient came with acute hypoxemic respiratory failure secondary to COVID- improved with steroid and supportive care, now off home oxygen. Otherwise patient is walking fine , denies any new symptoms. Patient was on steroids for prolonged hospital stay, so will taper steroids upon discharge. also during this admission bradycardia with pauses intially: ? TSH normal,asymptomatic.? Echo :01/31: Normal left ventricular size, thickness, and systolic function. The visually estimated ejection fraction is between 60-65%.? Spectral Doppler is indicative of an impaired relaxation filling pattern.? E/E prime ratio is <8, consistent with normal filling pressures.? Evidence suggests grade I (mild) diastolic dysfunction. discussed with Cardiology-possible related to atenolol, stopped at atenolol, patient bradycardia improved. Further management and workup outpatient - consider outpatient cardiology evaluation. hypertension chi started on amlodipine upon discharge. Above management discussed with the patient in detail length she understand and in agreement with the above plan, time spent 50 minutes and 50% time spent on counseling. Significant findings: As above. Procedures performed: None. Treatment and response: As above. Complications: None. Time Spent with Patient Time attestation: Total time spent providing and/or coordinating discharge services: Discharge coordination time: Greater than 30 minutes Quality: Stroke Does the patient have a stroke diagnosis?: No Physical Exam Vital Signs: Vital Signs: Last Vital Signs Temp 97.9 F 02/10/21 08:00 Pulse 79 02/10/21 08:00 Resp 18 02/10/21 08:00 BP 132/67 02/10/21 08:00 Pulse Ox 95 02/10/21 08:00 Oxygen Flow Rate 4 01/21/21 10:50 BMI result Body Mass Index 26.9 General: AO X 3, no acute distress Resp:? air entry improved, no rales or wheezing. CVS: S1,S2,RRR GI: +BS, NT, no distention Skin: No rash ext: pulses present , no cyanosis Neuro:? motor grossly intact Psych: appropriate affect DS: Data Data Completed and Pending Labs on day of discharge: Laboratory Results - last 24 hr 02/09/21 21:56 Sodium 137 Potassium 4.4 Chloride 103 Carbon Dioxide 25 Anion Gap 13 BUN 29 H D Creatinine 0.77 Estim Creat Clear Calc 49.9 Estimated GFR > 60 Random Glucose 264 H Calcium 8.7 D Magnesium 1.9 Additional Comments Additional comments: Cta: IMPRESSION: *? No evidence of pulmonary embolism. *? There is persistent multilobar pneumonia. Overall, the pulmonary disease is mildly improved compared to 01/21/2021. *? [id number] sized hiatal hernia is noted. ? Discharge Plan Discharge Patient Disposition: Home Health Service Discharge Diagnosis: Acute hypoxemic respiratory failure secondary to COVID. Referrals: [facility] [Other] - 1 Week (Oxygen provider) [facility] [Outside] - 1 Week Davidson Lopez MD [Primary Care Provider] - 1 Week Discharge Medications: New prednisone 20 mg tablet 20 mg PO DAILY Qty: 5 RF: 0 amlodipine 2.5 mg tablet 2.5 mg PO DAILY Qty: 30 RF: 0 Continued losartan 50 mg tablet 50 mg PO DAILY RF: 0 lansoprazole 30 mg capsule,delayed release(DR/EC) 30 mg PO DAILY RF: 0 lorazepam 1 mg tablet 1 mg PO BID PRN (Reason: anxiety/sleep) RF: 0 ezetimibe 10 mg tablet 10 mg PO DAILY RF: 0 prednisone 20 mg tablet 40 mg PO DAILY Qty: 10 RF: 0 benzonatate 100 mg Capsule 100 mg PO TID PRN (Reason: Cough) RF: 0 Discontinued azithromycin [Zithromax Z-Sincere] 250 mg tablet See Rx Instructions .ROUTE .COMPLEX Qty: 6 RF: 0 metoprolol succinate 25 mg tablet extended release 24 hr 25 mg PO DAILY RF: 0 Discharge Orders: Discharge Order (Routine); Ordered 02/10/21 Ordered By: Jak Jimenez Diet: advance to usual diet Activity on Discharge: As tolerated Stand Alone Forms: Patient Portal Discharge page Care Plan Goals: patient came with acute hypoxemic respiratory failure secondary to COVID- improved with steroid and supportive care- Patient going home, now off oxygen walking fine say. Recommended taper p.o. steroids. Otherwise patient is walking fine , denies any new symptoms. Health Concerns: As above. Plan of Treatment: As above. Assessment: As above.
[2021-02-10] MEDS: Famotidine 20 MG TABLET 40 MG PO (09:40)
[2021-02-10 09:41] VITALS: BP 132/67; PULSE 79
[2021-02-10] MEDS: Ezetimibe 10 MG TABLET PO (09:41)
[2021-02-10] MEDS: predniSONE 20 MG TABLET PO (09:41)
[2021-02-10] MEDS: Zinc Sulfate 220 MG CAPSULE PO (09:41)
[2021-02-10] MEDS: Losartan Potassium 50 MG TABLET PO (09:41)
[2021-02-10] MEDS: amLODIPine Besylate 2.5 MG TABLET PO (09:41)
[2021-02-10] MEDS: 0.9 % Sodium Chloride Flush 3 ML SYRINGE IVFLUSH (09:49)
[2021-02-10 11:41] VITALS: BP 146/72; PULSE 90; RESP 18; TEMP 36.1; O2SAT 93
--- NOTE | 2021-02-10 11:51 | MHC.CM.PN ---
Addendum entered by Romina Fernández 02/10/21 12:55: Patient does not qualify for home oxygen. [facility] will not be referred. Original Note: IMM 02/10/21 Female 75 Covid+ Discharged today. Home care preference obtained and referred. [facility] will provide homecare services. A Home oxygen eval is in progress. She will be sent home with O2 if she qualifies. Family is providing transportation home.
[2021-02-10 12:28] VITALS: PULSE 87; O2SAT 93
== END 2021-02-10 14:28 | disposition home health service (06) | DRG 177 ==
LOC: HO.ED 12:13 → HO.EDOVER 15:44 → HO.IMC 18:10
PROVIDERS: Internal Medicine; Physician Assistant Medical; Admitting Provider Internal Medicine; Emergency Provider Emergency Medicine; PCP Internal Medicine; Visit Provider Internal Medicine
DX: U07.1 COVID-19 (principal); J96.01 Acute respiratory failure with hypoxia; J12.82 Pneumonia due to coronavirus disease 2019; F41.9 Anxiety disorder, unspecified; E78.5 Hyperlipidemia, unspecified; Z88.6 Allergy status to analgesic agent; Z79.899 Other long term (current) drug therapy
CPT/HCPCS: 36415; 71046; 71275; 80048; 80053; 80076; 82728; 82803; 83605; 83615; 83735; 84145; 84443; 84484; 85025; 85027; 85379; 86140; 86769; 87040; 87449; 87635; 87899; 93005; 93306; 96361; 96374; 96375; 99285; 99291; J1170; J1650; J2060; J2270; J2405; J2920; J2930; Q9967

== ENCOUNTER 2021-03-20 09:02 | Outpatient (REF) | payer MEDICARE, SELFPAY ==
--- NOTE | ~2021-03-20 | XR_ITS ---
EXAMINATION: XR CHEST CLINICAL INFORMATION: Pneumonia due to Covid 19 right wrist. COMPARISON: None TECHNIQUE: 2 views of the chest were obtained. FINDINGS: The lungs are well-expanded ill-defined peripheral patchy opacities in both lungs. The heart size and pulmonary vascularity is normal. There is a cardiac recorder in the left anterior chest wall. No gross bony abnormality seen. XR/XR chest 2V IMPRESSION: Bilateral patchy airspace opacities in both lungs suspicious for developing infiltrate.
== END 2021-03-20 09:03 | disposition home or self-care (01) ==
LOC: HO.XRAY 09:02
PROVIDERS: PCP Internal Medicine; Visit Provider Internal Medicine
DX: U07.1 COVID-19 (principal); J12.82 Pneumonia due to coronavirus disease 2019
CPT/HCPCS: 71046

== ENCOUNTER 2021-04-03 07:45 | Outpatient (REF) | payer MEDICARE, SELFPAY ==
--- NOTE | ~2021-04-03 | CT_ITS ---
EXAMINATION: CT ANGIOGRAM CHEST CLINICAL INFORMATION: Pneumonia due to COVID. Dyspnea on exertion. COMPARISON: Chest CT 02/03/2021. TECHNIQUE: Multiple axial images were obtained through the chest after the administration of 65 mL of Omnipaque 350 intravenous contrast. Extensive vascular post-processing including two-dimensional and three-dimensional reformatted images were created and reviewed on an independent workstation. This CT examination was performed using dose optimization techniques as appropriate, variously including the following: *Automated exposure control *Adjustment of mA and/or kV according to patient size (this includes techniques or standardized protocols for targeted exams where dose is matched to indication/reason for exam; i.e. extremities or head) *Use of iterative reconstruction technique DLP: 109 mGy-cm FINDINGS: The thoracic aorta is normal in course and caliber. There is no evidence of dissection or other acute aortic syndrome. Streak artifacts partially obscure the origins of the arch vessels. There is a three-vessel arch with a small amount of calcific plaque at the proximal aspect of the vessels without significant stenosis. The visualized segments are unremarkable. The partially visualized abdominal aorta is normal in caliber. 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 There is mild narrowing of the celiac origin. The pulmonary arteries are normal in caliber. There are no filling defects to suggest pulmonary emboli. There is an unremarkable appearance of the central venous structures. The lungs are well expanded. Multifocal areas of patchy and confluent ground-glass opacity are again noted throughout the lungs which are similar in their distribution when compared with the prior study though have certainly reduced in their overall extent. No new consolidative opacities are seen. No areas of septal thickening or definite fibrosis. There is a region of opacity at the inferior anterior right upper lobe, as well as the anterior aspect of the right middle lobe directly abutting the pleura (images 251-325, series 9), possibly arising from the pleura itself which is similar to prior studies dating to 01/18/2021. This region measures up to 5-6 mm in thickness and up to 4.6 cm transverse. Its contour is somewhat lobulated and has a relatively nodular appearance at its inferior extent. Central and peripheral airways are patent. No pleural effusion or pneumothorax. The heart is not enlarged. No evidence of right heart strain. There is no pericardial effusion or pericardial thickening. There are subcentimeter lymph nodes at several mediastinal stations. No pathologically enlarged thoracic lymph nodes are seen. The axillae are unremarkable. The incompletely visualized upper abdomen is notable for a moderate hiatus hernia containing a portion of the proximal stomach. There is no reflux of contrast to the hepatic veins. There is no acute or aggressive bony abnormality identified. CT/CT angio chest aorta IMPRESSION: Patent arterial vasculature. There is no evidence of pulmonary embolism. Redemonstration of multifocal bilateral ground-glass opacities which are similar in their distribution, though overall have decreased in their extent from the prior. There is an indeterminate region of opacity/pleural plaque at the anterior inferior margin of the right upper lobe and anterior aspect right middle lobe with a somewhat nodular appearance at its inferior margin. The finding is unchanged from chest CTs dating to 01/18/2021, though more remote prior CTs are unavailable. This was not definitely seen on prior chest radiographs. If more remote prior studies are available elsewhere for comparison, these could be reviewed and an addendum issued. In the absence of such priors, follow-up chest CT would be recommended in 3-6 months and if not already obtained, pulmonology input would be helpful. Moderate hiatus hernia. Fleischner guidelines were followed.
[2021-04-03] MEDS: iohexoL 350 MG/ML 100 ML INFUS..BTL IV (08:57)
== END 2021-04-03 07:46 | disposition home or self-care (01) ==
LOC: HO.CT 07:45
PROVIDERS: Visit Provider Internal Medicine
DX: U07.1 COVID-19 (principal); J12.82 Pneumonia due to coronavirus disease 2019; R06.00 Dyspnea, unspecified
CPT/HCPCS: 71275; Q9967

== ENCOUNTER 2023-01-07 08:12 | Emergency (ER) | payer MEDICARE, SELFPAY ==
--- NOTE | ~2023-01-07 | XR_ITS ---
EXAMINATION: XR WRIST, RIGHT CLINICAL INFORMATION: Pain and swelling COMPARISON: Right wrist 10/07/2017 TECHNIQUE: PA, lateral, and oblique views of the right wrist. FINDINGS: There is an old healed fracture of the radial metaphysis. Marked degenerative changes are seen at the first CMC joint as well as the triscaphe joint. Degenerative changes are also present at the radial ulnar joint and the radiocarpal joint. No chondrocalcinosis. No fractures. XR/XR wrist RT min 3V IMPRESSION: Degenerative changes as described above.
[2023-01-07 08:17] VITALS: BP 146/69; PULSE 88; RESP 16; TEMP 36.4; O2SAT 97; BMI 28.3
--- NOTE | 2023-01-07 08:25 | ED.EXTPRO ---
HPI - Extremity Problem General Chief complaint: Extremity Injury, Upper Stated complaint: R Wrist inj Time Seen by Provider: 01/07/23 08:24 Source: patient Mode of arrival: ambulatory Limitations: no limitations History of Present Illness HPI Narrative: 77 yo female with PMH of anxiety, arthritis, hyperlipidemia here with c/o R wrist pain radiating to elbow. Prior fracture in that wrist. She over did it with work at home yesterday and lifted a heavy mattress. Complaint: joint swelling and joint pain Onset (ago): day(s) (yesterday ) Pain Consistency: constant Location: right and upper extremity Quality: aching and constant Radiation: proximal Relieving factors: rest Exacerbating factors: range of motion and palpation Associated symptoms: denies other symptoms Context: other (overuse) Related Data Home Medications Medication Instructions Recorded Confirmed ezetimibe 10 mg tablet 10 mg PO DAILY 01/18/21 01/21/21 lansoprazole 30 mg capsule,delayed 30 mg PO DAILY 01/18/21 01/21/21 release lorazepam 1 mg tablet 1 mg PO BID PRN anxiety/sleep 01/18/21 01/21/21 losartan 50 mg tablet 50 mg PO DAILY 01/18/21 01/21/21 benzonatate 100 mg capsule 100 mg PO TID PRN Cough 01/21/21 01/21/21 Previous Rx's Medication Instructions Recorded prednisone 20 mg tablet 40 mg (2 x 20 mg) PO DAILY #10 tabs 01/18/21 amlodipine 2.5 mg tablet 2.5 mg PO DAILY #30 tabs 02/10/21 prednisone 20 mg tablet 20 mg PO DAILY #5 tabs 02/10/21 Allergies Allergy/AdvReac Type Severity Reaction Status Date / Time Horse/Equine Containing Allergy Severe REDNESS Verified 01/18/21 19:54 Products AND [HORSE/EQUINE CONTAINING SWELLING PRODUCTS] aspirin [ASPIRIN] Allergy Unknown RASH Verified 01/18/21 19:54 ibuprofen [From MOTRIN] Allergy Unknown RASH Verified 01/18/21 19:54 latex [LATEX] Allergy Unknown RASH Verified 01/18/21 19:54 latex Allergy Unknown Unknown Uncoded 01/18/21 19:54 Motrin Allergy Unknown Unknown Uncoded 01/18/21 19:54 statins Allergy Unknown Unknown Uncoded 01/18/21 19:54 Review of Systems Review of Systems: Constitutional : No Fever, No Chills Cardiovascular : No Chest Pain, No SOB Respiratory : No Cough, No Dyspnea Gastrointestinal : No Nausea, No Vomiting, No Diarrhea, No abdominal Pain Genitourinary : No Dysuria, No Hematuria Musculoskeletal : positive joint pain, No Myalgias, pos Joint Swelling Skin : No Skin lacerations, No rash Neuro : No Weakness, No Numbness, No Loss of Consciousness, No Dizziness, No Headache All other systems reviewed and are negative [facility] Past Medical History Attestation statement: The following information was validated with the patient. Source: old records reviewed Medical History Hyperlipidemia Anxiety Arthritis Social History Social History Household Members: Spouse Housing: House Do you presently have visiting nurse or other home services: No Alcohol intake: never Patient Tobacco Use Status: Never used Tobacco Advance Directives: No service: No Current occupational status: retired Physical Exam Vital Signs: Vital Signs: Last Vital Signs Temp 97.5 F 01/07/23 08:17 Pulse 88 01/07/23 08:17 Resp 16 01/07/23 08:17 BP 146/69 H 01/07/23 08:17 Pulse Ox 97 01/07/23 08:17 O2 Del Method Room Air 01/07/23 08:17 BMI result Body Mass Index 28.3 Appearance: Alert. Oriented X3. No acute distress. Eyes: Pupils equal, round and reactive to light. ENT: Pharynx normal. Neck: Normal inspection. Neck supple. CVS: Normal heart rate and rhythm. Pulses normal. Respiratory: No respiratory distress. Abdomen: Soft and non-tender. Skin: Skin warm and dry. Normal skin color. Normal skin turgor. Extremities: R wrist mod ttp, mild swelling at wrist - distal NV intact, SILT intact 2+ radial pulse Neuro: Oriented X 3. No motor deficit. No sensory deficit. Medical Decision Making Medical Decision Making MDM Narrative: 77 yo female with PMH of anxiety, arthritis, hyperlipidemia here with c/o R wrist pain and swelling after overuse yesterday she is NV intact will obtain xray and place in splint for comfort. No redness, warmth to suggest infection or gout. Differential Diagnosis Differential Diagnoses: The differential diagnosis associated with the presentation includes sprain, strain, tendonitis Independent Interpretation I performed an independent interpretation of an: Plain X-Ray (no fracture) Radiology Impression Discussion of test interpretation with radiology: I have reviewed the radiologist's reading. External Record Review External record reviewed: Inpatient record Procedures Orthopedic Splinting/Casting Injury #1: Side: right Upper Extremity Injury Location: wrist Upper Extremity Immobilizer: wrist splint Discharge Plan Discharge Clinical Impression: Right wrist sprain Qualifiers: Encounter type: initial encounter Qualified Code(s): S63.501A - Unspecified sprain of right wrist, initial encounter Patient Disposition: Home, Self-Care Instructions: Wrist Sprain (ED) Additional Instructions: wear splint for 7 days. please take it easy. you can ice, elevate the area for the next few days. return for increased pain, redness, swelling, numbness or tingling. if not better in 5 days with rest talk to your doctor FINDINGS: There is an old healed fracture of the radial metaphysis. Marked degenerative changes are seen at the first CMC joint as well as the triscaphe joint. Degenerative changes are also present at the radial ulnar joint and the radiocarpal joint. No chondrocalcinosis. No fractures. XR/XR wrist RT min 3V IMPRESSION: Degenerative changes as described above. Prescriptions: No Action losartan 50 mg tablet 50 mg PO DAILY lansoprazole 30 mg capsule,delayed release(DR/EC) 30 mg PO DAILY lorazepam 1 mg tablet 1 mg PO BID PRN (Reason: anxiety/sleep) ezetimibe 10 mg tablet 10 mg PO DAILY prednisone 20 mg tablet 40 mg PO DAILY Qty: 10 0RF benzonatate 100 mg Capsule 100 mg PO TID PRN (Reason: Cough) prednisone 20 mg tablet 20 mg PO DAILY Qty: 5 0RF Rx Instructions: take 20 mg prednisone by mouth for next 3 there is then switched to 10 mg prednisone p.o. daily for next 3 days. then stop. amlodipine 2.5 mg tablet 2.5 mg PO DAILY Qty: 30 0RF
[2023-01-07] MEDS: Acetaminophen 325 MG TABLET 650 MG PO (08:46)
== END 2023-01-07 08:58 | disposition home or self-care (01) ==
PROVIDERS: Emergency Provider Emergency Medicine; PCP Internal Medicine
DX: S63.501A Unspecified sprain of right wrist, initial encounter (principal); M25.531 Pain in right wrist; Y33.XXXA Other specified events, undetermined intent, initial encounter; Y93.9 Activity, unspecified; Y92.9 Unspecified place or not applicable; Y99.9 Unspecified external cause status; Z79.899 Other long term (current) drug therapy
CPT/HCPCS: 29125; 73110; 99283

== ENCOUNTER 2023-06-15 12:27 | Outpatient (AMB) | payer MEDICARE, SELFPAY ==
[2023-06-15 13:18] VITALS: BP 138/72; PULSE 78; TEMP 36.6; O2SAT 98
--- NOTE | 2023-06-15 13:18 | MHC.OFFWIV ---
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) Intake Note: pt is here for wood splinter on index finger Patient Tobacco Use Status: Never used Tobacco Allergies Horse/Equine Containing Products [HORSE/EQUINE CONTAINING PRODUCTS] Allergy (Severe, Verified 06/15/23 13:20) REDNESS AND SWELLING aspirin [ASPIRIN] Allergy (Unknown, Verified 06/15/23 13:20) RASH ibuprofen [From MOTRIN] Allergy (Unknown, Verified 06/15/23 13:20) RASH latex [LATEX] Allergy (Unknown, Verified 06/15/23 13:20) RASH latex Allergy (Unknown, Uncoded 01/18/21 19:54) Unknown Motrin Allergy (Unknown, Uncoded 01/18/21 19:54) Unknown statins Allergy (Unknown, Uncoded 01/18/21 19:54) Unknown Do you need a note to return to daycare/school/sports/work: No HPI 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) HPI Details Patient picking up a 80-year-old piece of furniture and a splinter went into the right index finger PFSH Medical History Hyperlipidemia Anxiety Arthritis Social History Household Members: Spouse Housing: House Do you presently have visiting nurse or other home services: No Alcohol intake: never Patient Tobacco Use Status: Never used Tobacco service: No Current occupational status: retired Physical Exam Vital Signs: Last Vital Signs Temp 97.9 F 06/15/23 13:18 Pulse 78 06/15/23 13:18 BP 138/72 06/15/23 13:18 Pulse Ox 98 06/15/23 13:18 Extrem Other: Right index finger: Pulp space: Small fragment of would in the subcutaneous space. Office Procedures Foreign Body Removal Details: Right hand: Index finger: Pulp space: Area infiltrated with 2% xylocaine. Using a small surgical blade, incision made along the length of the foreign body. Using sharp tweezers, a small piece of the wood and fragment was removed. Patient tolerated the procedure well. [id number] body removal, simple Procedure code (CPT) selection complete Assessment & Plan Assessment & Plan (1) Foreign body of right index finger: Code(s): S60.450A - Superficial foreign body of right index finger, initial encounter Plan: Patient tolerated procedure well. Up-to-date on her tetanus. Orders: Orders AMB Removal of foreign body Today S60.450A - Superficial foreign body of right index finger, initial encounter Medications: Discontinued prednisone take 20 mg prednisone by mouth for next 3 there is then switched to 10 mg prednisone p.o. daily for next 3 days. then stop. Discontinued Reason: Patient Completed Course 20 mg PO DAILY 5 tabs 0RF prednisone Discontinued Reason: Patient Completed Course 40 mg (2 x 20 mg) PO DAILY 10 tabs 0RF Coding Level of Care Code Est Pt Level 3 (47598) Diagnoses Foreign body of right index finger S60.450A CPT Codes Details - Foreign body simple: 07947-Hkljrwd body removal, simple ([id number])
== END 2023-06-15 14:42 | disposition home or self-care (01) ==
PROVIDERS: PCP Internal Medicine; Visit Provider Internal Medicine
DX: S60.450A Superficial foreign body of right index finger, initial encounter (principal)
CPT/HCPCS: 10120; 99213

== ENCOUNTER 2023-12-09 11:09 | Emergency (ER) | payer MEDICARE, SELFPAY ==
[2023-12-09 11:10] VITALS: PULSE 107; RESP 16; TEMP 36.1; O2SAT 98; BMI 28.8
--- NOTE | 2023-12-09 11:11 | ED_ITS ---
HPI - Skin/Abscess/Foreign Bdy General Chief complaint: Skin/Abscess/Foreign Body Stated complaint: rash r leg Time Seen by Provider: 12/09/23 11:17 Source: patient, family (), RN notes reviewed and old records reviewed Mode of arrival: ambulatory Limitations: no limitations History of Present Illness ED Provider: CHARLY AL PA-C HPI narrative: 78 year old female with pmhx significant for HDL, anxiety, and arthritis presents to the ED today for evaluation of right groin rash x 2 weeks. Admits rash is isolated to her right groin fold. Reports trialing over the counter ointments without much improvement - cannot recall the names. Reports burning to the area after applying ointment. Otherwise the rash is painless, not itchy. Denies any discharge or open pustules. Denies concern for STI. Denies fever, chills, dysuria, vaginal discharge. Denies recent tick/ insect bites. Denies new soaps, lotions, detergents. Denies new medications/ antibiotics. Denies hx of DM. Related Data Home Medications ?Medication ?Instructions ?Recorded ?Confirmed ezetimibe 10 mg tablet 10 mg PO DAILY 01/18/21 01/21/21 lansoprazole 30 mg capsule,delayed 30 mg PO DAILY 01/18/21 01/21/21 release lorazepam 1 mg tablet 1 mg PO BID PRN anxiety/sleep 01/18/21 01/21/21 losartan 50 mg tablet 50 mg PO DAILY 01/18/21 01/21/21 metoprolol succinate 25 mg 25 mg PO DAILY 06/15/23 tablet,extended release 24 hr Previous Rx's ?Medication ?Instructions ?Recorded amlodipine 2.5 mg tablet 2.5 mg PO DAILY #30 tabs 02/10/21 clotrimazole 1 % topical cream 1 appl topical BID 2 weeks #45 12/09/23 grams Allergies Allergy/AdvReac Type Severity Reaction Status Date / Time Horse/Equine Containing Allergy Severe REDNESS Verified 12/09/23 11:11 Products AND [HORSE/EQUINE CONTAINING SWELLING PRODUCTS] aspirin [ASPIRIN] Allergy Unknown RASH Verified 12/09/23 11:11 ibuprofen [From MOTRIN] Allergy Unknown RASH Verified 12/09/23 11:11 latex [LATEX] Allergy Unknown RASH Verified 12/09/23 11:11 latex Allergy Unknown Unknown Uncoded 12/09/23 11:11 Motrin Allergy Unknown Unknown Uncoded 12/09/23 11:11 statins Allergy Unknown Unknown Uncoded 12/09/23 11:11 Review of Systems Review of Systems: Constitutional: No fever, chills, fatigue, night sweats, weight changes ENT/Mouth: No ear pain, hearing loss, nasal congestion, sinus pain, rhinorrhea, sore throat Eyes: No eye pain, swelling, redness, vision changes, discharge Cardio: No chest pain, palpitations, MATTHEWS, orthopnea, peripheral edema Pulm: No SOB, cough, sputum, wheezing, dyspnea, hemoptysis GI: No nausea, vomiting, hematemesis, abdominal pain, diarrhea, constipation, hematochezia, melena : No irregular bleeding, dysuria, frequency, urgency, hesitancy, hematuria, flank pain, urinary flow changes, urinary incontinence or retention MSK: No back pain, neck pain, joint pain, myalgias Skin: No lesions, +groin rash Neuro: No weakness, numbness, paresthesias, LOC, dizziness, headache Psych: No anxiety/panic, depression, SI/HI, AH/VH All other systems reviewed and are negative. [facility] Past Medical History Attestation statement: The following information was validated with the patient. Source: old records reviewed and nursing notes reviewed Medical History Hyperlipidemia Anxiety Arthritis Social History Social History Household Members: Spouse Housing: House Do you presently have visiting nurse or other home services: No Alcohol intake: never Patient Tobacco Use Status: Never used Tobacco Advance Directives: No Do you have a plan to hurt others: No Plan service: No Current occupational status: retired Physical Exam Vital Signs: Vital Signs: Last Vital Signs Temp 96.9 F 12/09/23 11:10 Pulse 107 H 12/09/23 11:10 Resp 16 12/09/23 11:10 Pulse Ox 98 12/09/23 11:10 O2 Del Method Room Air 12/09/23 11:10 BMI result Body Mass Index 28.8 Tachycardic to 107. Vitals otherwise WNL General: Well appearing, in no acute distress. Skin: Warm, dry, intact. + erythematous, scaly rash noted to right inguinal fold. dry. no warmth. no pustules. No sloughing. Spares palms, soles, web spaces. No involvement of mucous membranes. no target lesions. Head: Normocephalic, atraumatic. EENT: Hearing is intact b/l. Conjunctiva clear. PERRLA. Moist mucous membranes.? Neck: Supple without LAD Cardiac: Chest wall symmetric. RRR Lungs: Normal respiratory effort without accessory muscle use Abdomen: Soft, non-tender, non-distended. No rebound tenderness or guarding Back: No midline spinous or paraspinal tenderness. No step off deformity. Ext: Upper and lower extremities atraumatic, without tenderness, deformity, swelling or erythema. Full ROM throughout. Neuro: AOx3. Normal speech. Ambulating with steady gait. Psych: Appropriate mood and affect. Responds appropriately to questions. Course Course Course Narrative: This is a Rapid Medical Examination (RME) performed by Delia Muñoz PA-C in triage. Full HPI, ROS, assessment and treatment plan per primary provider in the Main ED. 78 yo female presenting to the ER for evaluation of a red, rash in her right inguinal region for the last 9 days and is spreading. Not itchy. Has been using neosporin. no recent hiking, tick bites or fever. Plan: full skin exam in [facility] Reevaluation(s) Reevaluation #1: 1156 -- Physical exam consistent with fungal infection. Will send clotrimazole 1% ointment to pharmacy for treatment. Patient has remained stable throughout ED visit today. Discussed worrisome signs and symptoms and when to return to the ED. All questions answered at this time. Patient is agreeable with disposition and stable for discharge. Medical Decision Making Medical Decision Making [facility] Narrative: This is a 78 yo patient who presents with rash for 2 wks, consistent with tinea cruris. Differential diagnosis includes tinea infection, contact/atopic/eczematous dermatitis, psoriasis. History and exam findings not consistent with lyme/tick bourne illness, herpes zoster/simplex, scabies, HFM,? dangerous etiologies of rash such as SJS/TEN, or secondary dangerous causes such as petechial rashes from thrombocytopenia or rickettsial infections.? Plan at this time is to treat symptomatically, instruct to follow up with PCP or derm PRN. Differential Diagnosis Differential Diagnoses: The differential diagnosis associated with the presentation includes as above. Admission/Observation not indicated. Independent Historian Clinical information obtained from an independent historian. History obtained from or confirmed by: Spouse () Social Determinants Patient?s care significantly limited by Social Determinants of Health including: Other Social Determinant of Health Critical Care Time Critical Care Time Critical Care Time: No Discharge Plan Discharge Clinical Impression: Fungal infection of the groin Patient Disposition: Home, Self-Care Instructions: Skin Yeast Infection (ED) Additional Instructions: You were evaluated in the ED today for groin rash. Your physical exam is consistent with a fungal infection. Treatment for this is with an topical antifungal. Clotrimazole ointment has been sent to your pharmacy for treatment. Please apply this twice daily for 2 weeks. Make sure to keep the area clean and dry to avoid worsening infection. Follow up with PCP as needed. Return to the ED with new or worsening symptoms. In the case of an emergency call 911. Prescriptions: New clotrimazole 1 % cream 1 appl topical BID 14 Days Qty: 45 0RF No Action losartan 50 mg tablet 50 mg PO DAILY lansoprazole 30 mg capsule,delayed release(DR/EC) 30 mg PO DAILY lorazepam 1 mg tablet 1 mg PO BID PRN (Reason: anxiety/sleep) ezetimibe 10 mg tablet 10 mg PO DAILY amlodipine 2.5 mg tablet 2.5 mg PO DAILY Qty: 30 0RF metoprolol succinate 25 mg tablet extended release 24 hr 25 mg PO DAILY Referrals: Davidson Lopez MD [Primary Care Provider] - Print Language: Egyptian
[2023-12-09 12:06] VITALS: BP 00/00; PULSE 107; RESP 16; TEMP 36.1; O2SAT 98
== END 2023-12-09 12:07 | disposition home or self-care (01) ==
PROVIDERS: Emergency Provider Student in an Organized Health Care Education/Training Program; PCP Internal Medicine
DX: B35.6 Tinea cruris (principal); R21 Rash and other nonspecific skin eruption; Z79.899 Other long term (current) drug therapy
CPT/HCPCS: 99283

== ENCOUNTER 2023-12-17 17:15 | Emergency (ER) | payer MEDICARE, SELFPAY ==
--- NOTE | ~2023-12-17 | XR_ITS ---
EXAMINATION: XR SHOULDER, RIGHT CLINICAL INFORMATION: Status post fall. Right shoulder pain. COMPARISON: None available. TECHNIQUE: AP external rotation, Grashey, scapular Y views of the right shoulder. FINDINGS: Acromioclavicular and glenohumeral joint alignments are maintained. There is no evidence of acute fracture or dislocation. Degenerative changes are noted at the acromioclavicular articulation. No significant arthritic changes are appreciated at the glenohumeral articulation. No soft tissue calcifications. XR/XR shoulder RT min 2V IMPRESSION: No evidence of acute fracture or dislocation in the right shoulder. Right acromioclavicular arthritic changes. Electronically signed by: Amanda Lei MD 12/17/2023 07:28 PM EDT
--- NOTE | ~2023-12-17 | XR_ITS ---
EXAMINATION: XR CHEST CLINICAL INFORMATION: Status post fall. Chest pain. COMPARISON: Chest x-ray of 03/20/2021, 01/21/2021, chest CT of 04/03/2021 TECHNIQUE: 2 views of the chest were obtained. FINDINGS: Cardiomediastinal silhouette is stable and normal. No abnormal tracheal deviation. No evidence of from pneumothorax or pleural effusions. The lungs are symmetrically adequately expanded. Faint patchy opacity noted in the right midlung zone is similar to 6 that seen on the previous x-rays. No new focal airspace opacities or changes of pulmonary edema are noted. No displaced rib fractures are seen. Osteopenia of the spine. No acute compression fracture of the visualized vertebral bodies. Scattered aortic calcifications. XR/XR chest 2V IMPRESSION: No radiographic evidence of pneumonia or pulmonary edema. No acute pulmonary process. No displaced rib fractures are noted. Electronically signed by: Amanda Lei MD 12/17/2023 07:23 PM EDT
--- NOTE | ~2023-12-17 | XR_ITS ---
EXAMINATION: XR WRIST, RIGHT CLINICAL INFORMATION: Status post fall. Right wrist pain. COMPARISON: Right wrist x-rays of 01/07/2023 TECHNIQUE: PA, lateral, and oblique views of the right wrist. FINDINGS: The evaluation is slightly limited by patient positioning. There is no evidence of acute fracture or dislocation. No focal erosion is seen. Degenerative osteoarthritic changes are noted at first intercarpal and first carpometacarpal articulations similar to previous study. No evidence of soft tissue air or radiopaque foreign body. No dystrophic soft tissue calcifications are noted. XR/XR wrist RT min 3V IMPRESSION: No evidence of acute fracture or dislocation in the right wrist. 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 Electronically signed by: Amanda Lei MD 12/17/2023 07:15 PM EDT
--- NOTE | ~2023-12-17 | XR_ITS ---
EXAMINATION: XR HIP, LEFT WITH PELVIS 1 VIEW CLINICAL INFORMATION: Status post fall. Left hip pain. COMPARISON: None available. TECHNIQUE: Two views of the left hip. AP view of the pelvis. FINDINGS: Femoral heads are well-seated in their expected acetabula. Mild narrowing of the bilateral hip joint spaces. There is no evidence of acute fracture or dislocation in the pelvis and left hip. Symphysis pubis is intact. Sacroiliac joints are intact and grossly appears unremarkable. Changes of enthesopathy are noted at the bilateral iliac spines. Multiple phlebolith are noted in the pelvis. Degenerative changes in the visualized lower lumbar spine. No suspicious lytic or blastic osseous lesions are demonstrated. XR/XR hip LT w PEL1V IMPRESSION: No evidence of acute fracture or dislocation in the pelvis and left hip. Electronically signed by: Amanda Lei MD 12/17/2023 07:18 PM EDT
--- NOTE | 2023-12-17 17:29 | ED.GENADULT ---
HPI - General Adult General Chief complaint: Fall Stated complaint: FALL DOWN 4 STEPS NECK PAIN Time Seen by Provider: 12/17/23 17:29 History of Present Illness ED Provider: Maverick CASILLAS narrative: The patient says that she was going down a 4 step stair case outside of her house when she lost her balance and fell. She says she bounce down the 4 steps onto the ground at the bottom of the steps. She does not know if she hit her head but she does not think she hit her head significantly and she had no loss of consciousness. No headache. No sense of neck injury or neck pain or pain with moving her neck. She says that she has pain in the region of the right wrist, also at the right shoulder, and also in the left hip. Also feels she struck her anterior chest and has anterior chest pain. The patient was able to get herself off the ground Related Data Home Medications ?Medication ?Instructions ?Recorded ?Confirmed ezetimibe 10 mg tablet 10 mg PO DAILY 01/18/21 01/21/21 lansoprazole 30 mg capsule,delayed 30 mg PO DAILY 01/18/21 01/21/21 release lorazepam 1 mg tablet 1 mg PO BID PRN anxiety/sleep 01/18/21 01/21/21 losartan 50 mg tablet 50 mg PO DAILY 01/18/21 01/21/21 metoprolol succinate 25 mg 25 mg PO DAILY 06/15/23 tablet,extended release 24 hr Previous Rx's ?Medication ?Instructions ?Recorded amlodipine 2.5 mg tablet 2.5 mg PO DAILY #30 tabs 02/10/21 clotrimazole 1 % topical cream 1 appl topical BID 2 weeks #45 12/09/23 grams Allergies Allergy/AdvReac Type Severity Reaction Status Date / Time Horse/Equine Containing Allergy Severe REDNESS Verified 12/17/23 17:50 Products AND [HORSE/EQUINE CONTAINING SWELLING PRODUCTS] aspirin [ASPIRIN] Allergy Unknown RASH Verified 12/09/23 11:11 ibuprofen [From MOTRIN] Allergy Unknown RASH Verified 12/09/23 11:11 latex [LATEX] Allergy Unknown RASH Verified 12/09/23 11:11 latex Allergy Unknown Unknown Uncoded 12/09/23 11:11 Motrin Allergy Unknown Unknown Uncoded 12/09/23 11:11 statins Allergy Unknown Unknown Uncoded 12/09/23 11:11 Review of Systems Review of Systems: Yes all other systems are reviewed and are negative [facility] Past Medical History Medical History Hyperlipidemia Anxiety Arthritis Social History Social History Household Members: Spouse Housing: House Do you presently have visiting nurse or other home services: No Alcohol intake: never Patient Tobacco Use Status: Never used Tobacco Smoked in Last 30 Days: No Use of substances other than those prescribed or required for medical reasons: No Advance Directives: No Advance Directives Information Provided: No service: No Current occupational status: retired Physical Exam ED Vital Signs: Vital Signs - 24 hr 12/17/23 17:34 12/17/23 20:05 Temperature 98.3 F 98.3 F Pulse Rate 90 90 Respiratory Rate 16 16 Blood Pressure 161/58 H 161/58 H Pulse Oximetry 100 100 Oxygen Delivery Method Room Air Room Air BMI result Body Mass Index 27.9 Const Other: The patient is a 78-year-old woman who looks as if she is in ordinarily good health. she is awake and alert does not appear obviously significantly injured or ill. HENMT Other: No signs of trauma to the head or the face. Eyes General: appearance normal, both eyes and all related structures Neck Other: No posterior midline C-spine tenderness. No pain with range of motion. C-spine is clinically clear. Chest Other: There is some anterior chest wall tenderness near the sternum without crepitus or subcutaneous emphysema. Resp Effort & Inspection: normal respiratory effort Auscultation: clear to auscultation bilaterally Cardio Rate: regular rate Rhythm: regular rhythm Heart sounds: S1 normal heart sound present and S2 normal heart sound present GI Other: Abdomen is soft and nontender Back/Spine/Pelvis Other: no midline vertebral tenderness in the back. Skin Other: The patient has bruising along the distal right volar forearm just proximal to the wrist. She has a mild abrasion to the radial side of the proximal right middle finger. Neuro Other: The patient is awake and alert with normal mental status. GCS 15. cranial nerves are grossly intact. She moves her extremities with normal strength and sensation except as limited by discomfort. She was able to walk with a reasonably steady gait. Extrem Other: There is some bruising and tenderness on the right forearm just proximal to the wrist. The wrist itself is nonswollen. No snuffbox tenderness. No bony deformity. Some mild tenderness along the right thumb. She can move the fingers well. She also has some tenderness at the right shoulder without gross deformity. She also has tenderness around the left hip which I suspect is more muscular tenderness than suggestive of a fracture. Medications Administered Discontinued Medications Generic Name Dose Route Start Last Admin Trade Name Sarah PRN Reason Stop Dose Admin Acetaminophen 975 mg 12/17/23 17:45 12/17/23 18:02 Acetaminophen 325 Mg Tablet PO 12/17/23 17:46 975 mg ONCE ONE Administration Diphtheria/Tetanus/Acell Pertussis 0.5 ml 12/17/23 19:43 12/17/23 20:00 Diphth,Pertus(Acell),Tet Adult 0.5 Ml Syringe IM 12/17/23 19:44 0.5 ml .ONCE ONE Administration Medical Decision Making Medical Decision Making MDM Narrative: Patient is a 78-year-old female who had a mechanical fall down 4 steps landing on the ground Outside her house. She did not seem to sustained a significant head injury. There was no loss of consciousness. Her C-spine is clinically clear. She is not on anticoagulation. Patient seems to have injuries to the right wrist, the right shoulder, the anterior chest wall, and the left hip. My suspicion for a fracture in any of these locations is low. X-rays of these areas demonstrates no fracture. She was given acetaminophen. She was able to walk unassisted. My suspicion for an occult hip fracture is low. She will be discharged with instructions to rest and take it easy. She should return if worse. She should follow up with her PCP. She was given a tetanus shot. She had an unremarkable EKG. Discharge Plan Discharge Clinical Impression: Fall, Contusion of multiple sites Patient Disposition: Home, Self-Care Additional Instructions: I do not think you have sustained any broken bones or other dangerous injuries. I think you have a lot of bruising and soft tissue injuries. I would plan on resting for the next few days. Acetaminophen (Tylenol) as needed for pain. Contact your regular doctor's office in a few days if you have persistent symptoms of concern. If at any point you feel significantly worse please return to the emergency room for additional evaluation. Prescriptions: No Action losartan 50 mg tablet 50 mg PO DAILY lansoprazole 30 mg capsule,delayed release(DR/EC) 30 mg PO DAILY lorazepam 1 mg tablet 1 mg PO BID PRN (Reason: anxiety/sleep) ezetimibe 10 mg tablet 10 mg PO DAILY amlodipine 2.5 mg tablet 2.5 mg PO DAILY Qty: 30 0RF clotrimazole 1 % cream 1 appl topical BID 14 Days Qty: 45 0RF metoprolol succinate 25 mg tablet extended release 24 hr 25 mg PO DAILY Interventions: ED Discharge Assessment Last Done: 12/17/23 20:05 Discharge Date/Time: 12/17/23 20:06 Print Language: Salvadorean
[2023-12-17 17:34] VITALS: BP 161/58; PULSE 90; RESP 16; TEMP 36.8; O2SAT 100
[2023-12-17 17:49] VITALS: BP 136/78; PULSE 96; O2SAT 96; BMI 27.9
--- NOTE | 2023-12-17 17:54 | ECG_ITS ---
Test Reason : dizzness Blood Pressure : / mmHG Vent. Rate : 079 BPM Atrial Rate : 079 BPM P-R Int : 178 ms QRS Dur : 080 ms QT Int : 376 ms P-R-T Axes : 027 -16 -06 degrees QTc Int : 431 ms Normal sinus rhythm Minimal voltage criteria for LVH, may be normal variant ( R in aVL ) Borderline ECG When compared with ECG of 04-FEB-2021 23:48, No significant change was found Referred By: Arash Temple Electronically Signed By:RIGO REYES MD
[2023-12-17] MEDS: Acetaminophen 325 MG TABLET 975 MG PO (18:02)
--- NOTE | 2023-12-17 18:02 | PC.NURSE ---
pt comes to ED via EMS from an urgent care. she states that she was at her nephews house, cleaning, bc he needs help round the house. She was alone and fell down four stairs when she got tripped up with the dog. She was not dizzy and did not loose consciousness. She got herself up. At she reported left chest wall pain, left hip pain, right shoulder pain and right wrist pain. She has an abrasion to her right wrist that is not bleeding. She is ambulatory. Lung sounds hear bilaterally, euql chest rise and fall. waiting for x rays
[2023-12-17] MEDS: Diphth,Pertus(ACell),Tet Adult 0.5 ML SYRINGE IM (20:00)
[2023-12-17 20:05] VITALS: BP 161/58; PULSE 90; RESP 16; TEMP 36.8; O2SAT 100
== END 2023-12-17 20:06 | disposition home or self-care (01) ==
PROVIDERS: Emergency Provider Emergency Medicine; PCP Internal Medicine
DX: S40.021A Contusion of right upper arm, initial encounter (principal); S60.412A Abrasion of right middle finger, initial encounter; W10.8XXA Fall (on) (from) other stairs and steps, initial encounter; R07.89 Other chest pain; M25.511 Pain in right shoulder; Y93.9 Activity, unspecified; Y92.9 Unspecified place or not applicable; Y99.9 Unspecified external cause status; Z23 Encounter for immunization
CPT/HCPCS: 71046; 73030; 73110; 73502; 90471; 90715; 93005; 99284

== ENCOUNTER → 2023-12-17 17:54 | Outpatient (BNV) | payer MEDICARE, SELFPAY | PROVIDERS: Emergency Provider Emergency Medicine; PCP Internal Medicine; Visit Provider Internal Medicine Cardiovascular Disease | DX: R42 Dizziness and giddiness (principal) | CPT/HCPCS: 93010 ==

== ENCOUNTER 2024-07-18 14:35 | Outpatient (REF) | payer MEDICARE, SELFPAY ==
--- OUTSIDE RECORDS SUMMARY | 2024-07-18 15:45 | XMS_ITS | Patient Health Record ---
Author Organization [facility] Address [address] [address] Care Team Providers Care Electric Freight Car Operator Name Role Phone Davidson Lopez Primary Care Provider FAINA Jasmine Unavailable [phone] Allergies Allergen (clinical drug ingredient) Drug/Non Drug Allergy documented on EMR Reaction Allergy Type Onset Date Status aspirin Aspirin itchy Drug Allergy Active ibuprofen Ibuprofen itchy Drug Allergy Active Reason For Referral No Information Medications Medication SIG (Take, Route, Frequency, Duration) Notes Start Date End Date Status Turmeric Not-Taking Metoprolol Succinate ER 25 MG 1 tablet Orally Once a day Active Vitamin E 400 UNIT 1 capsule Orally Onc e a day Not-Taking B Complex - as directed Orally Active Vitamin D3 50 MCG (2000 UT) 1 capsule Orally Once a day Active Zinc Sulfate 220 (50 Zn) MG 1 tablet Orally Once a day Active Biotin 1 MG as directed Orally Not-Taking Vitamin B12 Not-Taki ng Vitamin A Active Prevacid 30 MG 1 capsule before a m eal Orally Once a day Active Ezetimibe 10 MG 1 tablet Orally Once a day Active Losartan Potassium 50 MG 1 tablet Orally Once a day Active LORazepam 1 MG 1 tablet at bedtime as needed Orally Once a day Active Problems Problem Type SNOMED Code ICD Code Onset Dates Problem Status W/U Status Risk Notes Problem [id number] Paresthesia of right foot (R20.2) Active confirmed Vital Signs Heart Rate 62 /min 07/23/2023 Temperature 97.0 degrees Fahrenheit 07/23/2023 Respiratory Rate 16 /min 07/23/2023 Height 4ft 11in in 07/23/2023 Weight 135.0 lbs 07/23/2023 BMI 27.26 kg/m2 07/23/2023 Encounters Encounter Location Date Provider Diagnosis [facility] [address] 07/23/2023 FAINA RAUL Arthrosis of midfoot , right M19.071 ; Weakness of right lower extremity R29.898 and Paresthesia of right foot R20.2 [facility] [address] [facility] [address] [facility] [place] [id number] 07/26/2023 FAINA MONTOYAALLEY [facility] [address] [place] 09/23/2023 FAINA MONTOYAALLEY Assessments Encounter Date Diagnosis (ICD Code) Assessment Notes Treatment Notes Treatment Clinical Notes Section Notes 07/23/2023 Weakness of right lower extremity (ICD-10 - R29.898) 07/23/2023 Arthrosis of midfoot, 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 Time was 45 minutes spent in review of all these facets including face to face discussion with the patient regarding my findings and in discussion of a current and future treatment plan. Three weightbearing radiographs of the right foot were taken and reviewed. She does have a moderate hallux valgus deformity and mild midfoot arthrosis. This does not fully explain her diffuse pain in the right lower extremity. Her pain seems to be intermittent and can happen at rest and with activity. It involved the entire extremity and not just the foot. This is concerning for a radicular issue vs neuropathy. I have ordered b/l lower extremity EMG/NCV testing at this time and will await for these results. She will follow back as needed. I encouraged her to call with any questions or concerns. 07/23/2023 Paresthesia of right foot (ICD-10 - R20.2) Plan Of Treatment Pending Test Test Name Order Date X ray : Foot, right 3v 07/23/2023 EMG/NCV Bilateral lower extremities. Insurance Providers Payer Name Payer Address Payer Phone Subscriber Number Group Number Insured Name Patient Relationship to Insured Coverage Start Date Coverage End Date [employer] [address] [facility] [address] [place] [address] [facility] [place] [phone] [id number] Angelathania oNhemy hendricks Self - patient is the insured Medical (General) History Medical History History ICD Code osteoporosis recurrent cold sores + COVID 05/06/2023 took Paxlovid Stressed induced cardiomyopathy COVID vaccinated X 2 (Pfizer) Osteoarthritis multiple joints. Chronic lower extremity pain Hyperlipidemia Hypertension Anxiety Trigger finger sacrum fracture Surgical History Surgery Date(Month/Year) tonsillectomy cyst removed from right side of neck right carpal tunnel release right knee replacement hemorrhoidectomy tubal ligation cardiac implant Hospitalization History Reason Date(Month/Year) COVID/pneumonia inpatient X 28 days 2019 right knee replacement vaginal delivery (girl) 1977 vaginal delivery (boy) 1968 vaginal delivery (boy) 1965 vaginal delivery (girl) 1962 tonsillectomy
--- OUTSIDE RECORDS SUMMARY | 2024-07-18 15:45 | XMS_ITS ---
Author Organization [facility] Address [address] [address] Care Team Providers Care Bureau Chief Name Role Phone Davidson Lopez Primary Care Provider MAKENZIE Jasmine Unavailable [phone] Allergies Allergen (clinical drug ingredient) Drug/Non Drug Allergy documented on EMR Reaction Allergy Type Onset Date Status aspirin Aspirin itchy Drug Allergy Active ibuprofen Ibuprofen itchy Drug Allergy Active REASON FOR VISIT Rt foot pain Medications Medication SIG (Take, Route, Frequency, Duration) Notes Start Date End Date Status Vitamin D3 50 MCG (1999) 1 capsule Orally Once a day Active Biotin 1 MG as directed Orally Not-Taking Vitamin B12 Not-Taki ng Prevacid 30 MG 1 capsule before a m eal Orally Once a day Active Ezetimibe 10 MG 1 tablet Orally Once a day Active Turmeric Not-Taking Metoprolol Succinate ER 25 MG 1 tablet Orally Once a day Active B Complex - as directed Orally Active Losartan Potassium 50 MG 1 tablet Orally Once a day Active LORazepam 1 MG 1 tablet at bedtime as needed Orally Once a day Active Vitamin E 400 UNIT 1 capsule Orally Onc e a day Not-Taking Zinc Sulfate 220 (50 Zn) MG 1 tablet Orally Once a day Active Vitamin A Active Problems Problem Type SNOMED Code ICD Code Onset Dates Problem Status W/U Status Risk Notes Problem 720735129 Paresthesia of right foot (R20.2) Active confirmed Vital Signs Temperature 97.0 degrees Fahrenheit 07/23/19 24 Heart Rate 62 /min 07/23/2023 Respiratory Rate 16 /min 07/23/2023 Height 4ft 11in in 07/23/2023 Weight 135.0 lbs 07/23/2023 BMI 27.26 kg/m2 07/23/2023 Encounters Encounter Location Date Provider Diagnosis [facility] [address] [address] 07/23/2023 MAKENZIE CARTER Arthrosis of midfoot , right M19.071 ; Weakness of right lower extremity R29.898 and Paresthesia of right foot R20.2 Assessments Encounter Date Diagnosis (ICD Code) Assessment Notes Treatment Notes Treatment Clinical Notes Section Notes 07/23/2023 Arthrosis of midfoot, right (ICD-10 - [...] call with any questions or concerns. 07/23/2023 Weakness of right lower extremity (ICD-10 - R29.898) 07/23/2023 Paresthesia of right foot (ICD-10 - R20.2) Plan Of Treatment Treatment Notes Assessment Notes Arthrosis of midfoot, right This is an outpatient visit for evaluation [...] to call with any questions or concerns. Pending Test Test Name Order Date X ray : Foot, right 3v 07/23/2023 EMG/NCV Bilateral lower extremities. Progress Notes * Kerry REGALADOeDOB: 1945 (77 yo F)Acc No.[id number]:07/23/2023 Consult note Patient:?Francy REGALADO Provider:?Makenzie Stover DPM :1945???Age:77 Y???Sex:Female D ate:07/23/2023 Phone: Address:[address] [place] [id number] Pcp:Davidson Lopez Subjective: * Chief Complaints: * ???Rt foot pain * HPI: ???Foot & Ankle:? This is a 77 year old female who presents for a consultation. She is referred by her PCP team. She has been having pain in her right foot for 4 months now. She states the pain can be around her bunion deformity at times. She also has pain to the outer aspect of the foot and at times the entire foot. She states the pain is present with ambulation and rest. At times it is burning in nature. She also admits to pain around the front of both her legs, both knees, and her buttocks area. She finds that it is hard for her to get comfortable at night to sleep. She admits to a past injury to her sacrum causing a fracture. She has seen [facility] for this in the past and has had injections. She had a right total knee replacement 8 years ago and has continued with the same pain and at times even thinks the pain is worse than it was before. She has an area of patchy numbness to the outer aspect of her right knee. She uses a cane to walk because she also has issues with her left knee. She has not noticed any swelling in her feet, but states her legs are always swollen. She finds that the legs look the best in the morning and then get bigger throughout the day. She has had venous procedures in the past to both legs. She does admit to having issues with instability with walking and feeling like she may trip. She has not had any major falls. She admits to spasms to the toes in both feet. She has no history of any rashes that come and go. She denies any personal or familial history of inflammatory arthropathies, inflammatory bowel diseases, or inflammatory myopathies. * ROS:?General/Constitutional:?Denies?Chills.?Denies?Fatigue.?Denies?Fever.?Denies?Headache.?Allergy/Immunology:?Denies?Hives.?Denies?Itching.?Denies?Rash.?Endocrine:?Denies?Excessive sweating.?Denies?Excessive thirst.?Denies?Frequent urination.?Respiratory:?Denies?Cough.?Denies?Shortness of breath,?denies.?Denies?Wheezing.?Cardiovascular:?Denies?Chest pain.?Denies?Claudication.?Denies?Cyanosis.?Gastrointestinal:?Denies?Abdominal pain.?Denies?Constipation.?Denies?Diarrhea.?Hematology:?Denies?Bleeding problems,?denies.?Denies?Easy bruising,?denies.?Denies?Swollen glands.?Musculoskeletal:?Patient complaining of?pain around right bunion, pain around outer aspect of the right foot.?.?Admits?Back problems.?Admits?Joint stiffness.?Admits?Leg cramps.?Peripheral Vascular:?Denies?Blanching of skin.?Blood clots in legs?Denies.?Denies?Cold extremities.?Skin:?Denies?Masses.?Denies?Nail changes.?Denies?Skin lesion(s).?Neurologic:?Denies?Paralysis.?Denies?Tingling/Numbness.?Denies?Tremor.?Psychiatric:?Denies?Auditory/visual hallucinations.?Denies?Delusions.?Denies?Suicidal thoughts.? * Medical History:? * Surgical History:?tonsillect pranay cyst removed from right side of neck right carpal tunnel release right knee replacement hemorrhoidectomy tubal ligation cardiac implant * Hospitalization/Major Diagno stic Procedure:?tonsillectomy vaginal delivery (girl) 1963vaginal delivery (boy) 1966vaginal delivery (boy) 1969vaginal delivery (girl) 1978right knee replacement COVID/pneumonia inpatient X 28 days 2019 * Family History:?Father: dece ased, colon cancer.?Mother: heart disease.?Siblings: 20 yrs, sister- enlarged heart.?2 son(s) , 2 daughter(s) - healthy. .? * Social History:?Tobacco: former smoker Alcohol: no. * Medications:?TakingVitamin A Zinc Sulfate 220 (50 Zn) MG Tablet 1 tablet Orally Once a day B Complex - Capsule as directed Orally Metoprolol Succinate ER 25 MG Tablet Extended Release 24 Hour 1 tablet Orally Once a day Losartan Potassium 50 MG Tablet 1 tablet Orally Once a day LORazepam 1 MG Tablet 1 tablet at bedtime as needed Orally Once a day Prevacid 30 MG Capsule Delayed Release 1 capsule before a meal Orally Once a day Ezetimibe 10 MG Tablet 1 tablet Orally Once a day Vitamin D3 50 MCG (2000 UT) Capsule 1 capsule Orally Once a day Taking Vitamin A Taking Zinc Sulfate 220 (50 Zn) MG Tablet 1 tablet Orally Once a day Taking B Complex - Capsule as directed Orally Taking Metoprolol Succinate ER 25 MG Tablet Extended Release 24 Hour 1 tablet Orally Once a day Taking Losartan Potassium 50 MG Tablet 1 tablet Orally Once a day Taking LORazepam 1 MG Tablet 1 tablet at bedtime as needed Orally Once a day Taking Prevacid 30 MG Capsule Delayed Release 1 capsule before a meal Orally Once a day Taking Ezetimibe 10 MG Tablet 1 tablet Orally Once a day Taking Vitamin D3 50 MCG (2000 UT) Capsule 1 capsule Orally Once a day Not-TakingVitamin E 400 UNIT Capsule 1 capsule Orally Once a day Turmeric Vitamin B12 Biotin 1 MG Capsule as directed Orally Medication List reviewed and reconciled with the patientNot-Taking Vitamin E 400 UNIT Capsule 1 capsule Orally Once a day Not-Taking Turmeric Not-Taking Vitamin B12 Not-Taking Biotin 1 MG Capsule as directed Orally Medication List reviewed and reconciled with the patient * Allergies:?Aspirin: itchyIbu profen: addy[Allergies Verified] Objective: * Vitals:?Wt: 135.0 lbs, Ht: 4 ft 11in, BMI: 27.26 Index, HR: 62 /min, Temp: 97.0 F, RR: 16 /min, Ht-cm: 149.86, Wt-k.23 kg. * Examination: ???General Examination: ???This is an elderly female. Alert and oriented today and in no acute distress. Patient comes in ambulating in sandals with the aid of a cane. Breathing is regular and unlabored while sitting. Affect is pleasant and cooperative. No unusual anxiety or depression noted. Hearing intact to spoken word. No evidence of visual impairment that would impact self care or ambulation. Patient has palpable dorsalis pedis and posterior tibial pulse bilaterally. Small spider varicosities seen to both lower extremities. No pitting edema present. Capillary refill is less than 3 seconds to all digits bilaterally. Light touch sensation is symmetrical to all lower extremity dermatomes. Babinski is downgoing. Dermal atrophy to both lower extremities. There are no open wounds, rashes, or lesions noted. Bilateral hallux valgus deformity present. There is slight restricted 1st MPJ range of motion present bilaterally with crepitus, but no pain. No pain with pressure around the right 1st MPJ. There is mild tenderness at the right 5th styloid process and around the peroneal tendons. There is also diffuse tenderness to the anterior lower leg bilaterally. Subtalar and ankle joint range of motion are unrestricted and painless bilaterally. There is 5/5 strength for anterior, posterior, and lateral lower extremity muscle groups on the left. 4/5 strength for anterior and lateral muscle groups on the right and 5/5 strength for posterior muscle group on the right. There is patchy numbness around the right fibular head and there is a tinel sign with percussion to the fibular neck region on the right. There is also tenderness in the right popliteal fossa. Therapeutic Interventions: Assessment: * Assessment: 1.?Arthrosis of midfoot, rig ht - M19.071 (Primary)?2.?Weakness of right lower extremity - R29.898?3.?Paresthesia of right foot - R20.2? Plan: * Treatment: 2.?Weakness of right lower e xtremity?Imaging: EMG/NCV Bilateral lower extremities. 3.?Paresthesia of right foot?Imaging: EMG/NCV Bilateral lower extremities.* MAKENZIE CARTER 07/26/2023 09 :05:02 AM EDT > right lower extremity pain and lower back pain. ? radiculopathy vs neuropathy. * Procedures:?RIGHT FOOT RADIOGRAPHS 07/23/2023 3 weight bearing views (AP, LAT, LO PROJECTION/MO VIEW) Taken in the office and read by the physician. Osseous mineralization is age appropriate. There are no acute fractures or dislocations. Moderate hallux valgus deformity. There is narrowing and sclerosis to the 1st MPJ. There is also narrowing and sclerosis to the tarsometatarsal joints. Small plantar calcaneal enthesophyte. ? * Procedure Codes:?60575 X-RAY EXAM OF FOOT 3 Views, Modifiers: RT * Billing Information: * Visit Code:? 66044 Office Visit, New Pt., Level 3. * Procedure Codes:? 00571 X-RAY EXAM OF FOOT 3 Views. Modifiers: RT * Sign off status: Completed true * Provider:?Makenzie Stover DPM Date:?07/22 Generated for Wesley valladares/Kareem/Shaniquasmitting on:?07/18/2024 03:45 PM EDT History and Physical Notes * Examination Category Sub-Category Detail Notes Category Not es General Examination This is an elderly female. Alert and oriented today and in no acute distress. Patient comes in ambulating in sandals with the aid of a cane. Breathing is regular and unlabored while sitting. Affect is pleasant and cooperative. No unusual anxiety or depression noted. Hearing intact to spoken word. No evidence of visual impairment that would impact self care or ambulation. Patient has palpable dorsalis pedis and posterior tibial pulse bilaterally. Small spider varicosities seen to both lower extremities. No pitting edema present. Capillary refill is less than 3 seconds to all digits bilaterally. Light touch sensation is symmetrical to all lower extremity dermatomes. Babinski is downgoing. Dermal atrophy to both lower extremities. There are no open wounds, rashes, or lesions noted. Bilateral hallux valgus deformity present. There is slight restricted 1st MPJ range of motion present bilaterally with crepitus, but no pain. No pain with pressure around the right 1st MPJ. There is mild tenderness at the right 5th styloid process and around the peroneal tendons. There is also diffuse tenderness to the anterior lower leg bilaterally. Subtalar and ankle joint range of motion are unrestricted and painless bilaterally. There is 5/5 strength for anterior, posterior, and lateral lower extremity muscle groups on the left. 4/5 strength for anterior and lateral muscle groups on the right and 5/5 strength for posterior muscle group on the right. There is patchy numbness around the right fibular head and there is a tinel sign with percussion to the fibular neck region on the right. There is also tenderness in the right popliteal fossa.
--- OUTSIDE RECORDS SUMMARY | 2024-07-18 15:45 | XMS_ITS | Continuity of Care Document ---
Author Organization [facility] Address [address] [place] [address] Phone Care Team Providers Care Cash Posting Specialist Name Role Phone Andrew SEGURA FACS RVT [...] Providers Copied on Encounter [facility], [address], [place], [id number], [place] tel:[phone] [facility] No Information 3 Andrew Sierra. [address], [address], [place], [address], [place]. tel:[phone] Referring Provider: Davidson Zavala, [address] [place] [address], [place], [address]. tel:[phone] [facility], [address] [place] [address] [address], [place], [id number], [place] tel:[phone] [facility] [place] Encounter for follow-up examination after completed treatment for conditions other than malignant neVaricose veins of left lower extremity with pain Dec- 3 Andrew Sierra. [address], [place] [address], [place], [address], [place]. tel:[phone] Referring Provider: Davidson Zavala, [address] [place] [address], [place], [address]. tel:[phone] [facility], [address] [place] [address] [address], [place], [id number], [place] tel:[phone] [facility] [place] Varicose veins of left lower extremity with other complications Dec- 3 Andrew Sierra. [address], [place] [address], [place], [address], [place]. tel:[phone] Referring Provider: Davidson Zavala, [address] [place] [address], [place], [address]. tel:[phone] [facility], [address] [place] [address] [address], [place], [id number], [place] tel:[phone] [facility] [place] Varicose veins of left lower extremity with other complications Dec- 3 Andrew Sierra. [address], [address], [place], [address], [place]. tel:[phone] Referring Provider: Davidson Zavala, [address] [place] [address] [facility], [place], [address]. tel:[phone] [facility], [address] [place] [address] [address], [place], [id number], [place] tel:[phone] [facility] - [facility] No Information 3 Andrew Sierra. [address], [place] [address], [place], [address], [place]. tel:[phone] Referring Provider: Davidson Zavala, [address] [place] [address] [facility], [place], [address]. tel:[phone] Office/Outpt E&M Established 10 Mins [facility], [address] [place] [address] [address], [place], [id number], [place] tel:[phone] CVR - [facility] Chronic venous htn w oth comp of bilateral low extrm 3 Andrew Sierra. [address] [place] [address], [place], [address], [place]. tel:[phone] Referring Provider: Davidson Zavala, [address] [place] [address] [facility], [place], [address]. tel:[phone] Office/Outpt E&M Established 15 Mins [facility], [address] [place] [address] [address], [place], [id number], [place] tel:[phone] CVR - [facility] Chronic venous htn w oth comp of bilateral low extrm 3 Andrew Sierra. [address], [place] [address], [place], [address], [place]. tel:[phone] Referring Provider: Davidson Zavala, [address] [place] [address] [facility], [place], [address]. tel:[phone] [facility], [address] [place] [address] [address] [place], [id number], [place] tel:[phone] [place] Pain in right legPain in left leg 3 Andrew SEGURA FACS T GAY [employer]. [address] [address], [place], [address], . tel:[phone] Referring Provider: Davidson Zavala, [address] [facility], [place], [address]. tel:[phone] Offic Cons New/estab Mod 40 Hi [facility], [address] [place] [address] [address], [place], [id number], [place] tel:[phone] CVR - [place] Chronic venous htn w oth comp of bilateral low extrmEssentia l (primary) hypertensionF kwasi joint, unspecified joint 3 Andrew SEGURA FACS [facility] Sierra. [address], [place] [address], [place], [address], [place]. tel:[phone] Referring Provider: Davidson Zavala, [address] [place] [address] Internal Medicine, [place], [address]. tel:[phone] Family History Family Member Type Diagnosis Age At Onset No Information Payers Payer name Insurance type Covered libertarian ID Cami romero(s) [employer] [place] [employer] CI [id number] Social History Type Description Quantity Date Captured Comments Sex Female Smoking Status No Information Chief Complaint And Reason For Visit No Information Reason For Referral Reason For Referral No Information Plan Of Treatment Date Type Action Status Goal Tobacco cessation counseling completed Goal Tobacco cessation counseling completed Goal Diet education completed Goal Tobacco cessation counseling completed Referral Ordered: Weight management: Referral to physician timeframe: 3 Months (related to Body mass index (BMI) 28.0-28.9, adult) ordered History Of Present Illness Encounter Date Complaint History Of Prese nt Illness No Information Functional Status Date Functional Assessmen t No Information Instructions Date Instruction Additional Infor mation Diet education Related to Body mass index (BMI) 28.0-28.9, adult Giving Encouragement to exercise Related to Body mass index (BMI) 28.0-28.9, adult Lifestyle education Related to B aamir mass index (BMI) 28.0-28.9, adult Patient education booklet given Related to Chronic venous htn w oth comp of bilateral low extrm Compression stocking usage as conservative measure Related to Chronic venous htn w oth comp of bilateral low extrm Assessments Type Assessment Date No Information Patient Care Teams Name Effective Dates (start - stop) Status Members No Information
--- OUTSIDE RECORDS SUMMARY | 2024-07-18 15:45 | XMS_ITS ---
Author Organization [facility] Address [address] [address] Care Team Providers Care Customer Sales Advisor Name Role Phone LivingstonDavidson paul Primary Care Provider FAINA Jasmine Unavailable [phone] REASON FOR VISIT EMG/NCV results Encounters Encounter Location Date Provider Diagnosis [facility] [address] [address] 09/23/2023 FAINA CARTER Plan Of Treatment No Information Progress Notes * Kerry REGALADOeDOB: 1945 (78 yo F)Acc No.[id number]:09/23/2023 Patient:?Francy REGALADO josefchance :1945???Age:78 Y???Sex:Female Phone: Address:[address] [place] [phone] * true * Date:? Generated for Terrii jacquelyn/Kareem/eTransmitting on:?07/18/2024 03:44 PM EDT
--- OUTSIDE RECORDS SUMMARY | 2024-07-18 15:45 | XMS_ITS ---
Author Organization [facility] Address [address] [address] Care Team Providers Care Call Box Wirer Name Role Phone Davidson Lopez Primary Care Provider FAINA Jasmine Unavailable [phone] REASON FOR VISIT EMG/NCV referral Encounters Encounter Location Date Provider Diagnosis [facility] [address] [address] 07/26/2023 FAINA CARTER Plan Of Treatment No Information Progress Notes * Kerry REGALADOeDOB: 1945 (78 yo F)Acc No.[id number]:07/26/2023 Patient:?Francy REGALADO josefchance :1945???Age:77 Y???Sex:Female Phone: Address:[address] [place] [phone] * true * Date:? Generated for Terrii ng/Kareem/eTransmitting on:?07/18/2024 03:45 PM EDT
== END 2024-07-18 14:36 | disposition home or self-care (01) ==
LOC: HO.MAMMO 14:35
PROVIDERS: PCP Internal Medicine; Visit Provider Internal Medicine
DX: Z13.89 Encounter for screening for other disorder (principal)

== ENCOUNTER 2024-08-23 10:52 | Outpatient (REF) | payer MEDICARE, SELFPAY ==
--- OUTSIDE RECORDS SUMMARY | 2023-01-25 12:47 | XMS_ITS | Continuity of Care Document ---
Author Organization [facility] Address [address] [place] [address] Phone Care Team Providers Care Banquet Pilot Name Role Phone Andrew SEGURA FACS RVT Seymour RASHID Unavailable Unavailable Allergies, Adverse Reactions, Alerts Substance Reaction Status Criticality latex Active No Information Medications Medication Instructions Dosage Effective Dates (start - stop) Status Comments doxycycline monohydrate 100 mg capsule take 1 tablet 2 times a day starting 2 hrs prior to procedure and continue for 24hrs post procedure - Active LOSARTAN POTASSIUM (unknown strength) Not Available - Active ezetimibe 10 mg tablet - Active LANSOPRAZOLE (unknown strength) Not Available - Active doxycycline monohydrate 100 mg capsule take 1 tablet 2 times a day starting 2 hrs prior to procedure and continue for 24hrs post procedure - No Longer Active Procedures Procedure Date Duplex Scan-extrem Veins; Uni/ 23 Varithena, Single Truncal Vein 23 Endovenous Laser, 1st Vein Office/Outpt E&M Established 10 Mins Oct Office/Outpt E&M Established 15 Mins Sep Duplex Scan-extrem Veins; Comp Offic Cons New/estab Mod 40 Mi 23 Advance Directives Directive Yes / No Effective Date File Name No Information Encounters Encounter Description Practice Location Reason(s) For Visit Diagnoses Date Provider Providers Copied on Encounter [facility], [address], [place], [id number], [place] tel:[phone] [facility] No Information 3 Andrew Sierra. [address], [address], [place], [address], [place]. tel:[phone] Referring Provider: Davidson Zavala, [address] [place] [address], [place], [address]. tel:[phone] [facility], [address] [place] [address] [address], [place], [id number], [place] tel:[phone] [facility] [place] Encounter for follow-up examination after completed treatment for conditions other than malignant neVaricose veins of left lower extremity with pain Dec- 3 Andrew Sierra. [address] [facility] [facility], [place] [address], [place], [address], [place]. tel:[phone] Referring Provider: Davidson Zavala, [address] [place] [address], [place], [address]. tel:[phone] [facility], [address] [place] [address] [address], [place], [id number], [place] tel:[phone] [facility] [place] Varicose veins of left lower extremity with other complications Dec- 3 Andrew Sierra. [address] [facility] [address] [facility], [place] [address], [place], [address], [place]. tel:[phone] Referring Provider: Davidson Zavala, [address] [place] [address], [place], [address]. tel:[phone] [facility], [address] [place] [address] [address], [place], [id number], [place] tel:[phone] [facility] [place] Varicose veins of left lower extremity with other complications Dec- 3 Andrew Sierra. [address], [address], [place], [address], [place]. tel:[phone] Referring Provider: Davidson Zavala, [address] [place] [address] Internal [facility], [place], [address]. tel:[phone] [facility], [address] [place] [address] [address], [place], [id number], [place] tel:[phone] [facility] - [facility] No Information 3 Andrew Sierra. [address], [place] [address], [place], [address], [place]. tel:[phone] Referring Provider: Davidson Zavala, [address] [place] [address] Internal [facility], [place], [address]. tel:[phone] Office/Outpt E&M Established 10 Mins [facility], [address] [place] [address] [address], [place], [id number], [place] tel:[phone] [facility] - [facility] Chronic venous htn w oth comp of bilateral low extrm 3 Andrew Sierra. [address] [address], [place], [address], [place]. tel:[phone] Referring Provider: Davidson Zavala, [address] [place] [address] [facility], [place], [address]. tel:[phone] Office/Outpt E&M Established 15 Mins [facility], [address] [place] [address] [address], [place], [id number], [place] tel:[phone] [facility] - [facility] Chronic venous htn w oth comp of bilateral low extrm 3 Andrew Sierra. [address] [facility], [place] [address], [place], [address], [place]. tel:[phone] Referring Provider: Davidson Zavala, [address] [place] [address] [facility], [place], [address]. tel:[phone] [facility], [address] [place] [address] [address]Donald [place], [id number], [place] tel:[phone] [facility] [place] Pain in right legPain in left leg 3 Andrew SEGURA FACS [facility] [employer] [place]. [address] [address], [place], [address], . tel:[phone] Referring Provider: Davidson Zavala, [address] [facility], [place], [address]. tel:[phone] Offic Cons New/estab Mod 40 Ok [facility], [address] [place] [address] [address], [place], [id number], [place] tel:[phone] [facility] [place] Chronic venous htn w oth comp of bilateral low extrmEssentia l (primary) hypertensionF kwasi joint, unspecified joint 3 Andrew [facility] [employer] [place]. [address] [facility] [facility], [place] [address], [place], [address], [place]. tel:[phone] Referring Provider: Davidson Zavala, [address] [place] [address] Internal Medicine, [place], [address]. tel:[phone] Family History Family Member Type Diagnosis Age At Onset No Information Payers Payer name Insurance type Covered constitution party ID Cami romero(s) [employer] CI [id number] Social History Type Description Quantity Date Captured Comments Sex Female Smoking Status No Information Chief Complaint And Reason For Visit No Information Reason For Referral Reason For Referral No Information Plan Of Treatment Date Type Action Status Goal Tobacco cessation counseling completed Goal Tobacco cessation counseling completed Goal Tobacco cessation counseling completed Goal Diet education completed Referral Ordered: Weight management: Referral to physician timeframe: 3 Months (related to Body mass index (BMI) 28.0-28.9, adult) ordered History Of Present Illness Encounter Date Complaint History Of Prese nt Illness No Information Functional Status Date Functional Assessmen t No Information Instructions Date Instruction Additional Infor mation Compression stocking usage as conservative measure Related to Chronic venous htn w oth comp of bilateral low extrm Patient education booklet given Related to Chronic venous htn w oth comp of bilateral low extrm Lifestyle education Related to B aamir mass index (BMI) 28.0-28.9, adult Giving Encouragement to exercise Related to Body mass index (BMI) 28.0-28.9, adult Diet education Related to Body mass index (BMI) 28.0-28.9, adult Assessments Type Assessment Date No Information Patient Care Teams Name Effective Dates (start - stop) Status Members No Information
--- NOTE | ~2024-08-23 | US_ITS ---
EXAMINATION: MM DIAGNOSTIC DIGITAL BREAST TOMOSYNTHESIS, BILATERAL Left breast ultrasound. CLINICAL INFORMATION: Left breast pain central inner breast. COMPARISON: Mammography: Comparison is made with relevant prior exams. TECHNIQUE: Digital breast mammography with tomosynthesis is performed in both the craniocaudal and mediolateral oblique views along with computer-aided detection (CAD). FINDINGS: There are scattered areas of fibroglandular density (ACR BI-RADS breast composition Category b). Right: No suspicious masses calcifications or other abnormal findings. Left: Post excisional biopsy changes are stable. [place] marker in the central inner left breast anterior depth without underlying abnormality. No suspicious masses calcifications or other abnormal findings. Targeted color Doppler ultrasound scanning in the left breast area of patient's pain from 90 2:00 demonstrates normal fibronodular breast tissue. There is no sonographic abnormal findings. Results are provided to the patient at time of visit by the technologist. US/US breast LT limited mamm only IMPRESSION: Right: Negative. Left: No mammographic or sonographic abnormal findings to account for the patient's left breast pain. Recommend clinical evaluation and follow-up. ASSESSMENT: BI-RADS BI-RADS 2 - Benign Findings RECOMMENDATION: 1 year F/U This patient's information was entered into a reminder system with a target due date for their next mammogram. Electronically signed by: Carmella Vazquez DO 08/23/2024 11:56 AM EDT
== END 2024-08-23 10:53 | disposition home or self-care (01) ==
LOC: HO.MAMMO 10:52
PROVIDERS: PCP Internal Medicine; Visit Provider Internal Medicine
DX: N64.4 Mastodynia (principal); N63.21 Unspecified lump in the left breast, upper outer quadrant
CPT/HCPCS: 76642; 77062; 77066

== ENCOUNTER → 2024-08-23 11:00 | Outpatient (BNV) | payer MEDICARE, SELFPAY | PROVIDERS: PCP Internal Medicine; Visit Provider Internal Medicine | DX: N64.4 Mastodynia (principal) | CPT/HCPCS: 76642; 77066; G0279 ==

== ENCOUNTER 2024-10-09 06:07 | Day surgery (SDC) | payer MEDICARE, SELFPAY ==
--- OUTSIDE RECORDS SUMMARY | 2024-08-09 11:49 | XMS_ITS | Patient Health Record ---
Author Organization [facility] Address [address] [address] Care Team Providers Care Medical Clerk Name Role Phone Davidson Lopez Primary Care Provider FAINA Jasmine Unavailable [phone] Allergies Allergen (clinical drug ingredient) Drug/Non Drug [...] Problem Status W/U Status Risk Notes Problem [id number] Paresthesia of right foot (R20.2) Active confirmed Encounters Encounter Location Date Provider Diagnosis [facility] [address] [address] 09/23/2023 FAINA CARTER Plan Of Treatment Pending Test Test Name Order Date X ray : Foot, right 3v 07/23/2023 EMG/NCV Bilateral lower extremities. Insurance Providers Payer Name Payer Address Payer Phone Subscriber Number Group Number Insured Name Patient Relationship to Insured Coverage Start Date Coverage End Date [employer] [address] [place] [address] [id number] Nohemy Mccormick Self - patient is the insured Medical (General) History Medical History History ICD Code osteoporosis recurrent cold sores + COVID 05/06/2023 took Paxlovid Stressed induced cardiomyopathy COVID vaccinated X 2 (Tech urSelf) Osteoarthritis multiple joints. Chronic lower extremity pain [...]
[2024-10-02 09:13] VITALS: BMI 29.2
--- NOTE | 2024-10-06 10:14 | HO.ANESPROP2 ---
Documented by User: Jessie Cobb NP 10/06/24 10:15 HPI - Anesthesia Eval Consult details Narrative: 79yo F for Right Cataract Extraction IOL Insertion No previous cataract on record PMFSH Active Problems Active Problems: All Active Problems Acute hypoxemic respiratory failure (Acute) Hypoxia (Acute) COVID-19 (Acute) Past Medical History Medical History Post-COVID chronic dyspnea Osteoarthritis Osteoporosis GERD (gastroesophageal reflux disease) HTN (hypertension) NSTEMI (non-ST elevated myocardial infarction) Hyperlipidemia Anxiety Surgical History Surgical History Hx of excision of mass Hx of total knee arthroplasty Hx of tubal ligation Hx of tonsillectomy H/O colonoscopy Social History Social History Household Members: Spouse Housing: House Are you a primary home health care provider to a significant other at home: No Do you presently have visiting nurse or other home services: No Alcohol intake: never Patient Tobacco Use Status: Former Tobacco user Tobacco use type: Cigarette Use of substances other than those prescribed or required for medical reasons: No Have you been hit, kicked, punched, or otherwise hurt by someone within the past year? If so, by whom?: No Spiritual Healthcare Practices: no Scientologist Healthcare Practices: no Cultural Healthcare Practices: no Are you DNR?: No Advance Directives on File: No FDLMP: n/a service: No Current occupational status: retired Meds Allergies Allergy/AdvReac Type Severity Reaction Status Date / Time Horse/Equine Containing Allergy Severe REDNESS Verified 10/09/24 06:41 Products (HORSE/EQUINE AND CONTAINING PRODUCTS) SWELLING aspirin (ASPIRIN) Allergy Intermediate RASH Verified 10/09/24 06:41 ibuprofen (From MOTRIN) Allergy Intermediate RASH Verified 10/09/24 06:41 latex (LATEX) Allergy Intermediate RASH Verified 10/09/24 06:41 Kcthhxo-[id number] Reductase AdvReac Intermediate muscle Verified 10/09/24 06:41 Inhibitor aches Home Medications ?Medication ?Instructions ?Recorded ?Confirmed ?Last Taken ?Type ezetimibe 10 mg tablet 10 mg PO DAILY 01/18/21 10/02/24 Unknown History lansoprazole 30 mg capsule,delayed 30 mg PO DAILY 01/18/21 10/02/24 Unknown History release lorazepam 1 mg tablet 1 mg PO BID PRN anxiety/sleep 01/18/21 10/02/24 Unknown History losartan 50 mg tablet 50 mg PO DAILY 01/18/21 10/02/24 Unknown History metoprolol succinate 25 mg 25 mg PO DAILY 06/15/23 10/02/24 10/09/24 History tablet,extended release 24 hr Exam Height,Weight and Vital Signs: Height 4 ft 9.01 in Weight 61.2 kg Assessment and Plan Assessment Anesthesia Assessment: Chart Reviewed Documented by User: Allie Maxwell MD 10/09/24 07:20 PMF Past Medical History Medical History Post-COVID chronic dyspnea Osteoarthritis Osteoporosis GERD (gastroesophageal reflux disease) HTN (hypertension) NSTEMI (non-ST elevated myocardial infarction) Hyperlipidemia Anxiety Family History Family history of problems with anesthesia: No Surgical History Surgical History Hx of excision of mass Hx of total knee arthroplasty Hx of tubal ligation Hx of tonsillectomy H/O colonoscopy History of Problems with Anesthesia: No Social History Social History Household Members: Spouse Housing: House Are you a primary home health care provider to a significant other at home: No Do you presently have visiting nurse or other home services: No Alcohol intake: never Patient Tobacco Use Status: Former Tobacco user Tobacco use type: Cigarette Use of substances other than those prescribed or required for medical reasons: No Have you been hit, kicked, punched, or otherwise hurt by someone within the past year? If so, by whom?: No Spiritual Healthcare Practices: no Scientologist Healthcare Practices: no Cultural Healthcare Practices: no Are you DNR?: No Advance Directives on File: No FDLMP: n/a service: No Current occupational status: retired Meds Allergies Allergy/AdvReac Type Severity Reaction Status Date / Time Horse/Equine Containing Allergy Severe REDNESS Verified 10/09/24 06:41 Products (HORSE/EQUINE AND CONTAINING PRODUCTS) SWELLING aspirin (ASPIRIN) Allergy Intermediate RASH Verified 10/09/24 06:41 ibuprofen (From MOTRIN) Allergy Intermediate RASH Verified 10/09/24 06:41 latex (LATEX) Allergy Intermediate RASH Verified 10/09/24 06:41 [id number]-[id number] Reductase AdvReac Intermediate muscle Verified 10/09/24 06:41 Inhibitor aches Home Medications ?Medication ?Instructions ?Recorded ?Confirmed ?Last Taken ?Type ezetimibe 10 mg tablet 10 mg PO DAILY 01/18/21 10/02/24 Unknown History lansoprazole 30 mg capsule,delayed 30 mg PO DAILY 01/18/21 10/02/24 Unknown History release lorazepam 1 mg tablet 1 mg PO BID PRN anxiety/sleep 01/18/21 10/02/24 Unknown History losartan 50 mg tablet 50 mg PO DAILY 01/18/21 10/02/24 Unknown History metoprolol succinate 25 mg 25 mg PO DAILY 06/15/23 10/02/24 10/09/24 History tablet,extended release 24 hr Exam Airway Mallampati Class: II ( pins laterally ) TM Dist: >3cm Neck ROM: Full Heart: rrr Lungs: cta Assessment and Plan Assessment Anesthesia Assessment: Anesthesia Plan Discussed Final Anesthetic Review Family History of Problems with Anesthesia: No History of Problems with Anesthesia: No NPO: Yes ASA Class: III Final Preanesthetic Review: No Changes in Pt Med Stat, Meds/Allgs Chart Reviewed and Consent Obtained/Reviewed Patient Risk: Low Procedure Risk: Low Anesthetic Plan Anesthetic Plan: MAC: Disposition: Standard PACU
[2024-10-09] MEDS: Ketorolac Tromethamine 0.5% Op 5 ML DROPS 1 DROP EYE-RIGHT ×3 (06:23→06:36)
[2024-10-09] MEDS: Lactated Ringers 500 ML 50 ML IV (06:23)
[2024-10-09] MEDS: Tetracaine HCl/PF 0.5% Oph Sol 4 ML DROPS 1 DROP EYE-RIGHT (06:23)
[2024-10-09] MEDS: Tropicamide 1 % Ophth Sol 3 ML BTL 1 DROP EYE-RIGHT ×3 (06:24→06:36)
[2024-10-09] MEDS: Cyclopentolate 1 % Ophth Sol 2 ML DRPBTL 1 DROP EYE-RIGHT ×3 (06:24→06:36)
[2024-10-09] MEDS: Phenylephrine HCL 2.5% Oph SoL 2 ML BOTTLE 1 DROP EYE-RIGHT ×3 (06:24→06:35)
[2024-10-09 06:38] VITALS: BP 159/60; PULSE 73; RESP 18; TEMP 36.8; O2SAT 98
--- NOTE | 2024-10-09 06:53 | PC.NURSE ---
Verified with Dr. Hair via tiger text and he stated that it is okay to give Toradol drops. Doctor stated that he reviewed allergies/reactions and okay to give. Pharmacy updated as well.
--- NOTE | 2024-10-09 07:30 | MHC.SHP ---
Pre-Procedural Eval Section A - 24 Hr Update-Section A only Date of Service: 10/09/24 The patient is an INPATIENT: No Changes since office visit: No Cold of Flu in the past 2 weeks, No New Medical Problems, No Changes in Medication and No Patient answered all questions The patient has been examined within 24 hours of the surgical procedure. The History & Physical has been completed within 30 days and I have reviewed it.: Yes Section B - Complete if H&P > 30 days Chief Complaint: Age-related nuclear cataract, right eye Allergies: Allergies Allergy/AdvReac Type Severity Reaction Status Date / Time Horse/Equine Containing Allergy Severe REDNESS Verified 10/09/24 06:41 Products (HORSE/EQUINE AND CONTAINING PRODUCTS) SWELLING aspirin (ASPIRIN) Allergy Intermediate RASH Verified 10/09/24 06:41 ibuprofen (From MOTRIN) Allergy Intermediate RASH Verified 10/09/24 06:41 latex (LATEX) Allergy Intermediate RASH Verified 10/09/24 06:41 Shnsyri-JUH-QnK Reductase AdvReac Intermediate muscle Verified 10/09/24 06:41 Inhibitor aches Plan Diagnosis/Plan: Unchanged I have reviewed the history and physical and performed a pertinent physical examination on my patient. No changes have occurred unless specified. Time Spent With Patient Time: Total time managing care of this patient today ____ minutes.
--- NOTE | 2024-10-09 07:31 | P.PCNO_ITS ---
Ophthalmology Procedure Procedure Date of Service: 10/09/24 Ophthalmology Viscoelastic: Healon Duet Dual Pack Pro Ophthalmology Lenses: IOL Acrysof MP - [id number] (23.5) Procedure Notes: PREOPERATIVE DIAGNOSIS: Decreased visual acuity right eye secondary to cataract POSTOPERATIVE DIAGNOSIS: Same PROCEDURE: Right cataract extraction with intraocular lens insertion SURGEON: Cecil Hair M.D. ANESTHESIA: Topical/MAC ESTIMATED BLOOD LOSS: None COMPLICATIONS: None After obtaining informed consent, the patient was brought to the operating room suite and placed in the supine position. After adequate sedation per anesthesia, topical drops of Tetracaine were given to the right eye. The eye was then prepped and draped in the usual sterile fashion. The operating room microscope was then positioned over the operative eye and a lid speculum placed. A paracentesis was created. Viscoelastic was then instilled into the anterior chamber. A three plane incision was then created temporally, utilizing a 2.85 mm keratome. Capsulotomy forceps were then utilized to create a circular tear capsulotomy. Hydrodissection and hydrodelineation were carried out until adequate mobilization of the nucleus occurred. Phacoemulsification was then utilized to remove the dense central nu cleus followed by removal of the cortical material utilizing the automated aspiration irrigation unit. Viscoelastic was instilled into the posterior capsular bag followed by placement of a posterior chamber intraocular lens without difficulty. The residual Viscoelastic was then removed utilizing the automated IA machine. The wound was checked and found to be watertight. The patient tolerated the procedure well and the lid speculum was removed. Intracameral injection of Vigamox 0.1 mL followed by a subtenon injection of Kenalog-40 0.2 mL were administered. The patient will be seen in the a.m.
[2024-10-09 08:00] VITALS: BP 144/58; PULSE 61; RESP 12; TEMP 36.1; O2SAT 100
== END 2024-10-09 08:14 | disposition home or self-care (01) ==
PROVIDERS: PCP Internal Medicine; Visit Provider Ophthalmology
PROC: (CPT 66985; principal; 2024-10-09 07:30)
DX: H25.11 Age-related nuclear cataract, right eye (principal); H52.4 Presbyopia; H40.033 Anatomical narrow angle, bilateral; H11.153 Pinguecula, bilateral; H43.393 Other vitreous opacities, bilateral; H18.413 Arcus senilis, bilateral; I10 Essential (primary) hypertension; E78.00 Pure hypercholesterolemia, unspecified; K21.9 Gastro-esophageal reflux disease without esophagitis; I25.2 Old myocardial infarction; M81.0 Age-related osteoporosis without current pathological fracture; Z87.19 Personal history of other diseases of the digestive system; Z79.899 Other long term (current) drug therapy; Z88.6 Allergy status to analgesic agent; Z91.040 Latex allergy status; Z88.8 Allergy status to other drugs, medicaments and biological substances; Z87.891 Personal history of nicotine dependence
CPT/HCPCS: 66984; J2250; J3301; V2630